=== PATIENT | male | born 1970 | race Caucasian/White ===

== ENCOUNTER 2020-12-04 11:16 | Outpatient (REF) | payer MEDICAID, SELFPAY | END 2020-12-04 11:17 | disposition home or self-care (01) | LOC: HO.LAB 11:16 | PROVIDERS: Visit Provider Internal Medicine | DX: Z20.822 Contact with and (suspected) exposure to COVID-19 (principal) | CPT/HCPCS: 36415; C9803; U0003; U0005 ==

== ENCOUNTER 2022-02-25 13:22 | Inpatient (IN) | payer MEDICAID, SELFPAY ==
--- NOTE | ~2022-02-25 | XR_ITS ---
EXAMINATION: XR CHEST CLINICAL INFORMATION: Cough. COMPARISON: 07/23/2019 chest radiographs. TECHNIQUE: 2 views of the chest were obtained. FINDINGS: A large mass with air-fluid levels is seen at the level the right middle lobe measuring 11.9 x 11.6 x 10.4 cm a less defined triangular opacity with air-fluid levels are seen posteriorly, likely within the superior segment of the right lower lobe measuring approximately 14.6 x 9.5 x 7.7 cm. The left lung is clear. There are no pleural effusions. The heart and mediastinal structures are unremarkable. XR/XR chest 2V IMPRESSION: Right lung masses/opacities with air-fluid levels are nonspecific, but suggest an infectious process. Malignancy cannot be completely excluded. These findings were not seen previously. Further evaluation with a contrast-enhanced chest CT scan is recommended.
--- NOTE | ~2022-02-25 | CT_ITS ---
EXAMINATION: CT ANGIOGRAM OF THE CHEST WITH AND WITHOUT CONTRAST (CT PULMONARY ANGIOGRAM FOR PE) CLINICAL INFORMATION: Reason for Exam dyspnea tachycardia elevated ddimer COMPARISON: Chest x-ray performed earlier same date and 07/23/2019 TECHNIQUE: Prior to contrast administration, noncontrast localization images were obtained. Subsequently, multidetector volumetric imaging was performed from the thoracic inlet to below the diaphragms following the administration of 65 mL Omnipaque 350 intravenous contrast. No contrast reaction reported Sagittal, coronal, and MIP oblique sagittal reformatted images were obtained on the CT workstation, uploaded to PACS, and reviewed. This CT examination was performed using dose optimization techniques as appropriate, variously including the following: *Automated exposure control *Adjustment of mA and/or kV according to patient size (this includes techniques or standardized protocols for targeted exams where dose is matched to indication/reason for exam; i.e. extremities or head) *Use of iterative reconstruction technique Total exam dose-length product 346 mGy-cm FINDINGS: QUALITY OF STUDY/CONTRAST BOLUS: Satisfactory. PULMONARY ARTERIES: No central or segmental pulmonary emboli. THORACIC AORTA: No aneurysm or dissection. LUNG: Large consolidated regions of lung parenchyma with cavitation present in the posterior segment of the right upper lobe, superior segment of the right lower lobe and middle lobe with air-fluid levels and debris suggestive of a necrotizing multilobar pneumonia. Patchy groundglass opacities present throughout remainder of the right lung. Left lung is spared. PLEURA: No pleural effusion or pneumothorax. MEDIASTINUM: Normal heart size. No pericardial effusion. No hilar or mediastinal lymphadenopathy. No evidence of septal bowing or right heart strain. CHEST WALL/AXILLA: No axillary or internal mammary lymphadenopathy. OSSEOUS STRUCTURES: No acute or suspicious osseous abnormality. UPPER ABDOMEN: Unremarkable. CT/CT angio chest PE protocol IMPRESSION: No pulmonary embolism. Necrotizing multilobar pneumonia. Recommend sputum and/or BAL fluid cultures to guide further management.. VTE: negative
--- NOTE | ~2022-02-25 | CT_ITS ---
EXAMINATION: CT CHEST WITHOUT CONTRAST CLINICAL INFORMATION: Follow multilobar pneumonia. COMPARISON: 02/25/2022 TECHNIQUE: Multidetector volumetric CT imaging of the chest was done. Axial MIP volume rendering provided. Sagittal and coronal reformatted images were obtained. This CT examination was performed using dose optimization techniques as appropriate, variously including the following: *Automated exposure control *Adjustment of mA and/or kV according to patient size (this includes techniques or standardized protocols for targeted exams where dose is matched to indication/reason for exam; i.e. extremities or head) *Use of iterative reconstruction technique DLP: 361 mGy-cm FINDINGS: LUNGS: The central airways are patent. Multifocal consolidation with cavitation throughout the right lung. When compared to prior, the large areas of consolidation are fairly similar. Within the right lower lobe there is increased tree-in-bud nodular opacity with bronchial wall thickening. No pneumothorax. The left lung is clear. MEDIASTINUM: Normal heart size. No pericardial effusion. Prominent mediastinal lymph nodes are again noted, likely reactive. PLEURA: There is now a small right-sided pleural effusion. This is new from prior CT. AXILLA: No lymphadenopathy. UPPER ABDOMEN: Contracted gallbladder. No acute abnormality in the visualized upper abdomen. OSSEOUS STRUCTURES: No acute or suspicious osseous abnormality. CT/CT chest wo con IMPRESSION: Multifocal consolidation throughout the right lung with areas of cavitation. These areas of consolidation are fairly similar to prior. There is increased tree in bud nodular opacity throughout the right lower lobe. Reactive mediastinal lymph node prominence. Fleischner guidelines were followed.
[2022-02-25 14:00] VITALS: BP 107/65; PULSE 136; RESP 24; TEMP 37.9; O2SAT 97; BMI 24.0
--- NOTE | 2022-02-25 14:03 | ED.SOB ---
HPI - SOB/Dyspnea General Chief Complaint: Upper Respiratory Symptoms Stated Complaint: diff breathing cough Time Seen by Provider: 02/25/22 13:24 Source: patient and old records reviewed Mode of arrival: ambulatory Limitations: no limitations History of Present Illness HPI Narrative: 51 yo male with hx of gastritis on methadone, here with R sided chest pain, dyspnea 50lb weight loss in 6 weeks - night sweats, chills, fevers. He has not been in [facility] in 6 years, no homeless shelters in 10 years. He does go to the methadone clinic. He has not used IVDA in 2 years - he did snort about 2 months ago. He has not seen a doctor for these symptoms. He does live with people who could have been in [facility] - he is not sure of his contacts. MD elicited complaint: shortness of breath, cough and pain with inspiration Pertinent past history: asthma Onset (ago): week(s) (6) Timing: progressively worsening Severity: severe Exacerbating factors: exertion, coughing and inspiration Relieving factors: rest Associated symptoms: chest pain, pain with inspiration, fever, cough, wheezing, sputum production (foamy no blood), palpitations, diaphoresis (night sweats) and other (50lb weight loss, chills) Treatment prior to arrival: none Related Data Home Medications Medication Instructions Recorded Confirmed methadone 10 mg/mL oral concentrate 30 mg PO DAILY 02/25/22 Allergies Allergy/AdvReac Type Severity Reaction Status Date / Time morphine [MORPHINE] Allergy Unknown NAUSEA & Unverified 07/11/20 15:10 VOMITING, ABD PAIN Morphine AdvReac Unknown Uncoded 04/20/19 00:00 Review of Systems Review of Systems: Constitutional : pos Fever, pos Chills, pos weight loss, pos fatigue ENT/Mouth : No sore throat, No Rhinorrhea, No Swallowing Difficulty Eyes: No Eye Pain, No Swelling, No Redness Cardiovascular : No Chest Pain, positive SOB, No Orthopnea, positive Edema Respiratory : pos Cough, pos Sputum, No Wheezing, positive dyspnea Gastrointestinal : No Nausea, No Vomiting, No Diarrhea, No abdominal Pain, No Hematochezia, No Melena Genitourinary : No Dysuria, No Urinary Frequency, No Hematuria Musculoskeletal : No joint pain, No Myalgias Skin : No Skin Lesions, No rash Neuro : pos Weakness, No Numbness, No Dizziness, No Headache Psych : No Anxiety/Panic, No Depression Heme/Lymph: No Bruising, No Lymphadenopathy Endocrine : No Polyuria, No Polydipsia All other systems reviewed and are negative PMFSH Past Medical History Attestation statement: The following information was validated with the patient. Medical History Gastritis Methadone dependence Smoker Social History Social History (Updated 02/25/22 @ 14:24 by Susannah Crenshaw DO) Alcohol intake: current Patient Tobacco Use Status: Current everyday Tobacco user Smoked in Last 30 Days: Yes Use of substances other than those prescribed or required for medical reasons: No Substance Use Type: Former Substance User and Opiates Last Used Substance: Weeks (ago) Advance Directives: No Advance Directives Information Provided: No Physical Exam Vital Signs: Vital Signs: Last Vital Signs Temp 99.1 F 02/25/22 15:26 Pulse 110 H 02/25/22 15:26 Resp 24 H 02/25/22 15:26 BP 96/70 02/25/22 15:26 Pulse Ox 97 02/25/22 15:26 BMI result Body Mass Index 24.0 Appearance: Alert. Oriented X3. Mild acute distress. Frail temporal wasting Eyes: Pupils equal, round and reactive to light. ENT: Pharynx normal. Neck: Normal inspection. Neck supple. CVS: tachycardic heart rate and rhythm. Pulses normal. Respiratory: No respiratory distress. Breath sounds coarse and diminished, R side decreased Abdomen: Soft and non-tender. Skin: Skin warm and dry. pale skin color. Normal skin turgor. Extremities: No lower extremity edema. No calf ttp Neuro: Oriented X 3. No motor deficit. No sensory deficit. Course Course Course Narrative: did discuss with Dr. Cristina add on levofloxacin for pasteurella, HIV testing, TB isolation, sputum culture signed out to Dr. Cazares only for CTA result and admit order Dr. Young aware of pending admit MDM - SOB/Dyspnea MDM Narrative Medical decision making narrative: 51 yo male with hx of methadone maintenance no overt risk factors for TB - no homelessnesss in 10 years, no [facility] in [facility], no no travel - he does have roommates and he is not sure of their social history. He goes to the methadone clinic has no injected in 2 years. He comes in with c/o 6 weeks of dyspnea, chills, fevers, nightsweats with cavitary lesion on CXR from triage. Put into resp isolation room. He will need labs, cultures, IVF, tylenol, empiric antbiotics, likely CT scan pending ddimer, admission. T spot ordered. Lab Data Result diagrams: 02/25/22 14:25 02/25/22 14:25 Labs: Lab Results 02/25/22 02/25/22 02/25/22 Range/Units 14:01 14:01 14:24 WBC (4.8-10.8) X10*3/uL RBC (4.60-5.80) X10*6/uL Hgb (14.0-18.0) g/dl Hct (42.0-52.0) % MCV (80.0-98.0) fL MCH (27.0-33.0) pg MCHC (31.0-36.0) g/dl RDW (11.0-16.0) % Plt Count (160-400) X10*3/uL MPV (9.4-12.4) fL Immature Gran % (Auto) (0.0-0.4) % Neut % (Auto) (45-73) % Lymph % (Auto) (20-40) % [place] % (Auto) (2-11) % Eos % (Auto) (0-4) % Baso % (Auto) (0-2) % Lymph # (Auto) (1.2-4.9) X10*3/uL [place] # (Auto) (0.1-1.2) X10*3/uL Eos # (Auto) (0.0-0.4) X10*3/uL Baso # (Auto) (0.0-0.2) X10*3/uL Abs Immat Gran (auto) (0.00-0.03) X10*3/uL Absolute Neuts (auto) (2.0-8.3) x10*3/uL Absolute Nucleated RBC (0.0-0.012) X10*3/uL Nucleated RBC % (auto) (0.0-0.2) /100WBC Smear Tech's Comments ESR (0-15) MM/HR PT 20.1 H (9.9-13.0) SEC INR 1.7 H (0.9-1.1) APTT 32.5 (24.1-38.0) SEC D-Dimer High Sensitivty 1166 NG/ML Sodium (135-145) mmol/L Potassium (3.3-5.1) mmol/L Chloride (96-108) mmol/L Carbon Dioxide (22-29) mmol/L Anion Gap (12-20) BUN (9-16) mg/dL Creatinine (0.5-1.4) mg/dL Estim Creat Clear Calc Estimated GFR Random Glucose (60-115) mg/dL Lactic Acid (0.5-2.0) mmol/L Calcium (8.4-10.2) mg/dL Magnesium (1.6-2.6) mg/dL Ferritin (20-250) ng/mL Total Bilirubin (0.0-1.0) mg/dL Direct Bilirubin (0.0-0.5) mg/dL AST (5-37) U/L ALT (0-40) U/L Alkaline Phosphatase (39-117) U/L Lactate Dehydrogenase (118-273) U/L Total Creatine Kinase (38-174) U/L Troponin I High Sens (<3.5-35.0) ng/L C-Reactive Protein (< or = 0.50) mg/dL Total Protein (6.5-8.0) g/dL Albumin (3.5-5.0) g/dL Procalcitonin ng/mL COVID-19 (EDUAR) Negative (Negative) COVID-19 Clin Com See Note Influenza Type A (LATIA) Negative (Negative) Influenza Type B (LATIA) Negative (Negative) Influenza A & B Note See Note 02/25/22 02/25/22 02/25/22 Range/Units 14:24 14:24 14:24 WBC (4.8-10.8) X10*3/uL RBC (4.60-5.80) X10*6/uL Hgb (14.0-18.0) g/dl Hct (42.0-52.0) % MCV (80.0-98.0) fL MCH (27.0-33.0) pg MCHC (31.0-36.0) g/dl RDW (11.0-16.0) % Plt Count (160-400) X10*3/uL MPV (9.4-12.4) fL Immature Gran % (Auto) (0.0-0.4) % Neut % (Auto) (45-73) % Lymph % (Auto) (20-40) % [place] % (Auto) (2-11) % Eos % (Auto) (0-4) % Baso % (Auto) (0-2) % Lymph # (Auto) (1.2-4.9) X10*3/uL [place] # (Auto) (0.1-1.2) X10*3/uL Eos # (Auto) (0.0-0.4) X10*3/uL Baso # (Auto) (0.0-0.2) X10*3/uL Abs Immat Gran (auto) (0.00-0.03) X10*3/uL Absolute Neuts (auto) (2.0-8.3) x10*3/uL Absolute Nucleated RBC (0.0-0.012) X10*3/uL Nucleated RBC % (auto) (0.0-0.2) /100WBC Smear Tech's Comments ESR (0-15) MM/HR PT (9.9-13.0) SEC INR (0.9-1.1) APTT (24.1-38.0) SEC D-Dimer High Sensitivty NG/ML Sodium (135-145) mmol/L Potassium (3.3-5.1) mmol/L Chloride (96-108) mmol/L Carbon Dioxide (22-29) mmol/L Anion Gap (12-20) BUN (9-16) mg/dL Creatinine (0.5-1.4) mg/dL Estim Creat Clear Calc Estimated GFR Random Glucose (60-115) mg/dL Lactic Acid 2.4 H* (0.5-2.0) mmol/L Calcium (8.4-10.2) mg/dL Magnesium (1.6-2.6) mg/dL Ferritin (20-250) ng/mL Total Bilirubin (0.0-1.0) mg/dL Direct Bilirubin (0.0-0.5) mg/dL AST (5-37) U/L ALT (0-40) U/L Alkaline Phosphatase (39-117) U/L Lactate Dehydrogenase (118-273) U/L Total Creatine Kinase (38-174) U/L Troponin I High Sens < 3.5 (<3.5-35.0) ng/L C-Reactive Protein (< or = 0.50) mg/dL Total Protein (6.5-8.0) g/dL Albumin (3.5-5.0) g/dL Procalcitonin 0.86 ng/mL COVID-19 (EDUAR) (Negative) COVID-19 Clin Com Influenza Type A (LATIA) (Negative) Influenza Type B (LATIA) (Negative) Influenza A & B Note 02/25/22 02/25/22 02/25/22 Range/Units 14:25 14:25 14:25 WBC 31.3 H* (4.8-10.8) X10*3/uL RBC 3.72 L (4.60-5.80) X10*6/uL Hgb 10.8 L (14.0-18.0) g/dl Hct 32.9 L (42.0-52.0) % MCV 88.4 (80.0-98.0) fL MCH 29.0 (27.0-33.0) pg MCHC 32.8 (31.0-36.0) g/dl RDW 14.7 (11.0-16.0) % Plt Count 772 H (160-400) X10*3/uL MPV 9.2 L (9.4-12.4) fL Immature Gran % (Auto) 1.6 H (0.0-0.4) % Neut % (Auto) 87.0 H (45-73) % Lymph % (Auto) 5.2 L (20-40) % [place] % (Auto) 5.9 (2-11) % Eos % (Auto) 0.0 (0-4) % Baso % (Auto) 0.3 (0-2) % Lymph # (Auto) 1.6 (1.2-4.9) X10*3/uL [place] # (Auto) 1.9 H (0.1-1.2) X10*3/uL Eos # (Auto) 0.0 (0.0-0.4) X10*3/uL Baso # (Auto) 0.1 (0.0-0.2) X10*3/uL Abs Immat Gran (auto) 0.49 H (0.00-0.03) X10*3/uL Absolute Neuts (auto) 27.2 H (2.0-8.3) x10*3/uL Absolute Nucleated RBC 0.000 (0.0-0.012) X10*3/uL Nucleated RBC % (auto) 0.0 (0.0-0.2) /100WBC Smear Tech's Comments VERIFIED ESR 92 H (0-15) MM/HR PT (9.9-13.0) SEC INR (0.9-1.1) APTT (24.1-38.0) SEC D-Dimer High Sensitivty NG/ML Sodium 129 L (135-145) mmol/L Potassium 4.7 (3.3-5.1) mmol/L Chloride 88 L (96-108) mmol/L Carbon Dioxide 27 (22-29) mmol/L Anion Gap 19 (12-20) BUN 10 (9-16) mg/dL Creatinine 0.66 (0.5-1.4) mg/dL Estim Creat Clear Calc 148.6 Estimated GFR > 60 Random Glucose 108 (60-115) mg/dL Lactic Acid (0.5-2.0) mmol/L Calcium 8.7 (8.4-10.2) mg/dL Magnesium 1.6 (1.6-2.6) mg/dL Ferritin 1036 H (20-250) ng/mL Total Bilirubin 0.6 (0.0-1.0) mg/dL Direct Bilirubin 0.3 (0.0-0.5) mg/dL AST 61 H (5-37) U/L ALT 31 (0-40) U/L Alkaline Phosphatase 125 H (39-117) U/L Lactate Dehydrogenase 172 (118-273) U/L Total Creatine Kinase 9 L (38-174) U/L Troponin I High Sens (<3.5-35.0) ng/L C-Reactive Protein 28.64 H (< or = 0.50) mg/dL Total Protein 7.4 (6.5-8.0) g/dL Albumin 2.4 L (3.5-5.0) g/dL Procalcitonin ng/mL COVID-19 (EDUAR) (Negative) COVID-19 Clin Com Influenza Type A (LATIA) (Negative) Influenza Type B (LATIA) (Negative) Influenza A & B Note ECG Data Attestation: I personally reviewed and interpreted this ECG as follows: ECG interpretation date: 02/25/22 ECG interpretation time: 14:38 Interpretation: Rate: 132 Rhythm: sinus tachycardia [place]: normal Normal P waves. Normal KAYLA. Normal QRS complex. ST T wave : normal no MOISES qTC: normal prior studies: no acute ischemia The study has been interpreted contemporaneously by me. Critical Care Time Critical Care Time Critical Care Time: Yes Total Critical Care Time: 45 Attestation: review of old records, medical consult, 2L of IVF I attest to this time spent taking care of the patient Discharge Plan Discharge Clinical Impression: Acute dyspnea, Acidosis, lactic, CRP elevated, Cavitating mass of lung Leukocytosis Qualifiers: Leukocytosis type: unspecified Qualified Code(s): D72.829 - Elevated white blood cell count, unspecified Fever Qualifiers: Fever type: unspecified Qualified Code(s): R50.9 - Fever, unspecified Patient Disposition: Admitted As Inpatient
[2022-02-25 14:04] VITALS: PULSE 132; O2SAT 97
--- NOTE | 2022-02-25 14:04 | ECG_ITS ---
Test Reason : dyspnea Blood Pressure : / mmHG Vent. Rate : 132 BPM Atrial Rate : 132 BPM P-R Int : 140 ms QRS Dur : 074 ms QT Int : 282 ms P-R-T Axes : 067 055 059 degrees QTc Int : 417 ms Poor data quality, interpretation may be adversely affected Sinus tachycardia Otherwise normal ECG When compared with ECG of 23-JUL-2019 19:37, No significant change was found Referred By: Susannah Crenshaw Electronically Signed By:Carrillo Sabillon
[2022-02-25] MEDS: Piperacillin Sodium/Tazobactam 3.375 GM in 0.9 % Sodium Chloride 50 ML IV (14:34)
[2022-02-25] MEDS: 0.9 % Sodium Chloride 1,000 ML 999 ML IV ×2 (14:36→16:25)
[2022-02-25] MEDS: Acetaminophen 325 MG TABLET 650 MG PO (14:36)
[2022-02-25 14:37] LABS: COVID-19 Test Negative (Negative)
[2022-02-25 14:38] LABS: IDNOW Serial# 16C4AD1C; Influenza A Negative (Negative); Influenza B2 Negative (Negative)
[2022-02-25 14:39] LABS: Basophils Absolute Auto 0.1 X10*3/uL (0.0-0.2); Basophils Percent Auto 0.3 % (0-2); Hematocrit 32.9 % (42.0-52.0); Hemoglobin 10.8 g/dl (14.0-18.0); Imm Gran Abs Auto 0.49 X10*3/uL (0.00-0.03); Imm Gran Pct Auto 1.6 % (0.0-0.4); Lymphocytes Absolute Auto 1.6 X10*3/uL (1.2-4.9); Lymphocytes Percent Auto 5.2 % (20-40); MANUAL DIFF FLAG SCAN; Mean Corpuscular HGB Conc 32.8 g/dl (31.0-36.0); Mean Corpuscular Volume 88.4 fL (80.0-98.0); Mean Platelet Volume 9.2 fL (9.4-12.4); Monocytes Absolute Auto 1.9 X10*3/uL (0.1-1.2); Monocytes Percent Auto 5.9 % (2-11); Neutrophils Absolute Auto 27.2 x10*3/uL (2.0-8.3); Platelet Count 772 X10*3/uL (160-400); Red Blood Count 3.72 X10*6/uL (4.60-5.80); Red Cell Distribution Width 14.7 % (11.0-16.0); SCAN SMEAR FLAG 1
[2022-02-25 14:42] LABS: White Blood Count 31.3 X10*3/uL (4.8-10.8)
[2022-02-25 14:53] LABS: INTERNATIONAL NORM RATIO 1.7 (0.9-1.1); Prothrombin Time 20.1 SEC (9.9-13.0)
--- NOTE | 2022-02-25 14:54 | PHA.MEDREC ---
Pharmacy Consult ? Medication Reconciliation Pharmacy has completed the medication reconciliation. Methadone dose needs to be confirmed with clinic
[2022-02-25 14:55] LABS: D Dimer High Sensitivity 1166 NG/ML; Partial Thromboplastin Time 32.5 SEC (24.1-38.0)
[2022-02-25 14:57] LABS: SLIDE REVIEW VERIFIED
[2022-02-25 14:59] LABS: Troponin-I High Sensitivity < 3.5 ng/L (<3.5-35.0)
[2022-02-25 14:59] LABS: Alanine Aminotransferase 31 U/L (0-40); Albumin Level 2.4 g/dL (3.5-5.0); Alkaline Phosphatase 125 U/L (39-117); Anion Gap 19 (12-20); Aspartate Amino Transferase 61 U/L (5-37); Bilirubin Direct 0.3 mg/dL (0.0-0.5); Bilirubin Total 0.6 mg/dL (0.0-1.0); Blood Urea Nitrogen 10 mg/dL (9-16); C Reactive Protein 28.64 mg/dL (< or = 0.50); Calcium 8.7 mg/dL (8.4-10.2); Carbon Dioxide 27 mmol/L (22-29); Chloride 88 mmol/L (96-108); Creatinine Clr Calc Pharmacy 148.6; Estimated Glomerular Filt Rate > 60; Glucose Random 108 mg/dL (60-115); Lactate Dehydrogenase 172 U/L (118-273); Magnesium 1.6 mg/dL (1.6-2.6); Potassium 4.7 mmol/L (3.3-5.1); Sodium 129 mmol/L (135-145); Total Protein 7.4 g/dL (6.5-8.0)
[2022-02-25 15:08] LABS: Lactic Acid 2.4 mmol/L (0.5-2.0)
[2022-02-25 15:18] LABS: Procalcitonin 0.86 ng/mL
[2022-02-25 15:19] LABS: Ferritin 1036 ng/mL (20-250)
[2022-02-25] MEDS: vancomycin HCL 1,000 MG in 0.9 % Sodium Chloride 250 ML 270 MG IV (15:23)
[2022-02-25 15:26] VITALS: BP 96/70; PULSE 110; RESP 24; TEMP 37.3; O2SAT 97
[2022-02-25 15:30] LABS: Erythrocyte Sedimentation Rate 92 MM/HR (0-15)
[2022-02-25] MEDS: iohexoL 350 MG/ML 100 ML INFUS..BTL 65 ML IV (16:22)
[2022-02-25] MEDS: levoFLOXacin/D5W 500 MG/100 ML PIGGYBACK 100 MG IV (16:25)
[2022-02-25 16:31] LABS: Reflex Lactate? Lactic Acid Added
[2022-02-25] MEDS: 0.9 % Sodium Chloride 1,000 ML 999 ML IVCONT (17:28)
[2022-02-25 17:36] LABS: ~Lactic Acid-LAB USE ONLY 1.6 mmol/L (0.5-2.0)
[2022-02-25 17:44] LABS: Amphetamine Screen Urine Not Detected (Not Detect); Barbiturates, Urine Not Detected (Not Detect); Benzodiazepines Screen Urine Not Detected (Not Detect); Cannabinoid Screen Urine Not Detected (Not Detect); Cocaine Screen Urine Not Detected (Not Detect); Fentanyl, urine Not Detected (Not Detect); Opiate Screen Urine Not Detected (Not Detect); Phencyclidine Screen Urine Not Detected (Not Detect)
--- NOTE | 2022-02-25 18:00 | P.HPHOSP_ITS ---
History of Present Illness Date of Service: 02/25/22 Chief Complaint: Sepsis/cavitary pneumonia. 51-year-old male history of gastritis, also drug use in the past on methadone, also he recently quit alcohol 4-6 week ago, was in the detention 6 years ago, denies living in homeless shelters. Patient came to the hospital because of 6 week history of shortness of breath, cough pain with breathing inspiration, fever night sweats, loss of appetite and weight loss 30-40 lb as per patient. Also complaining of generalized weakness. Has nausea He says he is generally weak from 6 months and due to shortness of breath and ab ove symptoms has limited functionally active from 6 month. Patient says that he quit IV did drug use 2 years ago,he did snort about 2 months ago. Patient having seen a doctor at least 2-3 years. lives with friends:Miss Pickens: [phone]. Denies vomiting or abdominal pain or blurry vision or weakness or numbness Has foamy sputum every day in the morning. Denies any recent travel or sick contacts. Lab imaging reviewed: WBC count 31.3, tachypneic Mild hyponatremia 129 Elevated ferritin, C-reactive protein, as ESR Lactic acid 2.4, mild elevated LFT chronically. PTand INR also elevated ddimer elevated CTA shows no PE, possible necrotizing multilobar pneumonia. EKG shows sinus tachycardia Review of Systems Review of Systems: As above. Yes all other systems are reviewed and are negative [facility] Medical History Gastritis Methadone dependence Smoker Pertinent family history: Patient a does not want to tack anything about family history. He says he has 1 uncle but he does not want me to speak to him. Social History Alcohol intake: current Patient Tobacco Use Status: Current everyday Tobacco user Smoked in Last 30 Days: Yes Use of substances other than those prescribed or required for medical reasons: No Substance Use Type: Former Substance User and Opiates Last Used Substance: Weeks (ago) Advance Directives: No Advance Directives Information Provided: No Meds Allergies Allergy/AdvReac Type Severity Reaction Status Date / Time morphine [MORPHINE] Allergy Unknown NAUSEA & Unverified 07/11/20 15:10 VOMITING, ABD PAIN Morphine AdvReac Unknown Uncoded 04/20/19 00:00 Active Medications: Current Medications Folic Acid (Folic Acid 1 Mg Tablet) 1 mg PO DAILY [facility] Sodium Chloride (Ns) 1,000 mls @ 999 mls/hr IVCONT .Q1H1M ONE Stop: 02/25/22 18:05 Last Admin: 02/25/22 17:28 Dose: 999 mls/hr Documented by: Lactated Ringer's (Lr) 1,000 mls @ 100 mls/hr IVCONT .Q10H NABIL Piperacillin Sod/Tazobactam (Sod 4.5 gm/ Sodium Chloride) 100 mls @ 200 mls/hr IV Q6H [facility] Levofloxacin (Levaquin) 500 mg in 100 mls @ 100 mls/hr IV Q24H [facility] Methadone HCl (Methadone Hcl 20 Mg/2 Ml Oral.Conc) 30 mg PO DAILY [facility] Pharmacy Consult (Consult Rx Perform Med Rec) 1 each MISCELLANE ONCE PRN PRN Reason: Consult order Pharmacy Consult (Consult Rx Vancomycin Dosing) 1 each MISCELLANE DAILY PRN PRN Reason: Consult order Sodium Chloride (0.9 % Sodium Chloride Flush 3 Ml Syringe) 3 ml IVFLUSH QSHIFT [facility] Thiamine HCl (Thiamine Hcl 100 Mg Tablet) 100 mg PO DAILY [facility] Home Medications Medication Instructions Recorded Confirmed Last Taken Type methadone 10 mg/mL oral concentrate 30 mg PO DAILY 02/25/22 02/25/22 History Physical Exam Vital Signs and Narrative: Vital Signs: Last Vital Signs Temp 99.1 F 02/25/22 15:26 Pulse 110 H 02/25/22 15:26 Resp 24 H 02/25/22 15:26 BP 96/70 02/25/22 15:26 Pulse Ox 97 02/25/22 15:26 BMI result Body Mass Index 24.0 Appearance: Alert.? Oriented X3.?sob? Eyes: Pupils equal, round and reactive to light.? Sclera nonicteric.? ENT: Pharynx normal.? Moist mucous membranes-somewhat dry. cvs: rrr, [id number] res: cdiminshed breath sounds on right lung area lower more >upper lung ,rhonchii right side also,left lung is fair air entry. abd: no rebound or guarding ,nt, bs present. ext pulses present , no cyanosis . neuro: axo3 , nonfocal. Results Labs CBC and Chem 7: 02/25/22 14:25 02/25/22 14:25 Labs: Laboratory Results - last 24 hr 02/25/22 02/25/22 02/25/22 14:01 14:01 14:24 MCV MCH MCHC RDW Plt Count MPV Immature Gran % (Auto) Neut % (Auto) Lymph % (Auto) [place] % (Auto) Eos % (Auto) Baso % (Auto) Lymph # (Auto) [place] # (Auto) Eos # (Auto) Baso # (Auto) Abs Immat Gran (auto) Absolute Neuts (auto) Absolute Nucleated RBC Nucleated RBC % (auto) Smear Tech's Comments ESR PT 20.1 H INR 1.7 H APTT 32.5 D-Dimer High Sensitivty 1166 Anion Gap Estim Creat Clear Calc Estimated GFR Random Glucose Lactic Acid Lactic Acid F/U @ 2Hr Calcium Magnesium Ferritin Total Bilirubin Direct Bilirubin AST ALT Alkaline Phosphatase Lactate Dehydrogenase Total Creatine Kinase Troponin I High Sens C-Reactive Protein Total Protein Albumin Procalcitonin Urine Opiates Screen Urine Fentanyl Screen Ur Barbiturates Screen Ur Phencyclidine Scrn Ur Amphetamines Screen U Benzodiazepines Scrn Urine Cocaine Screen U Marijuana (THC) Screen COVID-19 (EDUAR) Negative COVID-19 Clin Com See Note Influenza Type A (LATIA) Negative Influenza Type B (LATIA) Negative Influenza A & B Note See Note 02/25/22 02/25/22 02/25/22 14:24 14:24 14:24 MCV MCH MCHC RDW Plt Count MPV Immature Gran % (Auto) Neut % (Auto) Lymph % (Auto) [place] % (Auto) Eos % (Auto) Baso % (Auto) Lymph # (Auto) [place] # (Auto) Eos # (Auto) Baso # (Auto) Abs Immat Gran (auto) Absolute Neuts (auto) Absolute Nucleated RBC Nucleated RBC % (auto) Smear Tech's Comments ESR PT INR APTT D-Dimer High Sensitivty Anion Gap Estim Creat Clear Calc Estimated GFR Random Glucose Lactic Acid 2.4 H* Lactic Acid F/U @ 2Hr Calcium Magnesium Ferritin Total Bilirubin Direct Bilirubin AST ALT Alkaline Phosphatase Lactate Dehydrogenase Total Creatine Kinase Troponin I High Sens < 3.5 C-Reactive Protein Total Protein Albumin Procalcitonin 0.86 Urine Opiates Screen Urine Fentanyl Screen Ur Barbiturates Screen Ur Phencyclidine Scrn Ur Amphetamines Screen U Benzodiazepines Scrn Urine Cocaine Screen U Marijuana (THC) Screen COVID-19 (EDUAR) COVID-19 Clin Com Influenza Type A (LATIA) Influenza Type B (LATIA) Influenza A & B Note 02/25/22 02/25/22 02/25/22 14:25 14:25 14:25 MCV 88.4 MCH 29.0 MCHC 32.8 RDW 14.7 Plt Count 772 H MPV 9.2 L Immature Gran % (Auto) 1.6 H Neut % (Auto) 87.0 H Lymph % (Auto) 5.2 L [place] % (Auto) 5.9 Eos % (Auto) 0.0 Baso % (Auto) 0.3 Lymph # (Auto) 1.6 [place] # (Auto) 1.9 H Eos # (Auto) 0.0 Baso # (Auto) 0.1 Abs Immat Gran (auto) 0.49 H Absolute Neuts (auto) 27.2 H Absolute Nucleated RBC 0.000 Nucleated RBC % (auto) 0.0 Smear Tech's Comments VERIFIED ESR 92 H PT INR APTT D-Dimer High Sensitivty Anion Gap 19 Estim Creat Clear Calc 148.6 Estimated GFR > 60 Random Glucose 108 Lactic Acid Lactic Acid F/U @ 2Hr Calcium 8.7 Magnesium 1.6 Ferritin 1036 H Total Bilirubin 0.6 Direct Bilirubin 0.3 AST 61 H ALT 31 Alkaline Phosphatase 125 H Lactate Dehydrogenase 172 Total Creatine Kinase 9 L Troponin I High Sens C-Reactive Protein 28.64 H Total Protein 7.4 Albumin 2.4 L Procalcitonin Urine Opiates Screen Urine Fentanyl Screen Ur Barbiturates Screen Ur Phencyclidine Scrn Ur Amphetamines Screen U Benzodiazepines Scrn Urine Cocaine Screen U Marijuana (THC) Screen COVID-19 (EDUAR) COVID-19 Clin Com Influenza Type A (LATIA) Influenza Type B (LATIA) Influenza A & B Note 02/25/22 02/25/22 17:00 17:00 MCV MCH MCHC RDW Plt Count MPV Immature Gran % (Auto) Neut % (Auto) Lymph % (Auto) [place] % (Auto) Eos % (Auto) Baso % (Auto) Lymph # (Auto) [place] # (Auto) Eos # (Auto) Baso # (Auto) Abs Immat Gran (auto) Absolute Neuts (auto) Absolute Nucleated RBC Nucleated RBC % (auto) Smear Tech's Comments ESR PT INR APTT D-Dimer High Sensitivty Anion Gap Estim Creat Clear Calc Estimated GFR Random Glucose Lactic Acid Lactic Acid F/U @ 2Hr 1.6 Calcium Magnesium Ferritin Total Bilirubin Direct Bilirubin AST ALT Alkaline Phosphatase Lactate Dehydrogenase Total Creatine Kinase Troponin I High Sens C-Reactive Protein Total Protein Albumin Procalcitonin Urine Opiates Screen Not Detected Urine Fentanyl Screen Not Detected Ur Barbiturates Screen Not Detected Ur Phencyclidine Scrn Not Detected Ur Amphetamines Screen Not Detected U Benzodiazepines Scrn Not Detected Urine Cocaine Screen Not Detected U Marijuana (THC) Screen Not Detected COVID-19 (EDUAR) COVID-19 Clin Com Influenza Type A (LATIA) Influenza Type B (LATIA) Influenza A & B Note Imaging Radiologist's Impressions: Impressions Chest X-Ray 02/25/22 13:38 IMPRESSION: Right lung masses/opacities with air-fluid levels are nonspecific, but suggest an infectious process. Malignancy cannot be completely excluded. These findings were not seen previously. Further evaluation with a contrast-enhanced chest CT scan is recommended. Chest CTA 02/25/22 16:23 IMPRESSION: No pulmonary embolism. Necrotizing multilobar pneumonia. Recommend sputum and/or BAL fluid cultures to guide further management.. VTE: negative Assessment and Plan (1) Acute dyspnea: Status: Acute (2) Acidosis, lactic: Status: Acute (3) Leukocytosis: Qualifiers: Leukocytosis type: unspecified Qualified Code(s): D72.829 - Elevated white blood cell count, unspecified Status: Acute (4) Fever: Qualifiers: Fever type: unspecified Qualified Code(s): R50.9 - Fever, unspecified Status: Acute (5) Necrotizing bronchopneumonia: Status: Acute (6) Sepsis: Status: Acute Plan 51-year-old male history of gastritis, also drug use in the past on methadone came with sepsis /pneumonia. 1. Sepsis secondary to pneumonia(necrotizing pneumonia)-symptoms are from 6 weeks. Has tachycardia and tachypnea elevated ferritn ,crp,esr , procalcitonin. cta -shows necrotizing pneumonia, no pulm embolism Patient was given Levaquin, vancomycin and Zosyn in the ED,vanco trough Will continue above antibiotics, also blood culture the sport test hepatitis C, HIV also sent by ED, T spot, AFB and sputum culture ordered. Sepsis exam completed, lactic acid improved, completed sepsis fluids. Id and Pulmonary evaluation added. Patient on airborne isolation 2. Opioid use: Patient does not give clear-cut history, will add urine drug screen. Continue methadone. psych for methadone 3.hx of gastritis : added ppi 4.elevated pt/inr -as per the patient is not eating well from 6 weeks-so possi ble nutritional D-dimer elevated, will add fibrin origin to complete the workup for coagulopathy ldh normal 5. Mild elevation of LFTs chronic -possible related to etoh use. continue to moniter lft's 6. hyponatremia:possible low po intake ,seems dry added gentle hydration 7.mech devices until coagulapthy workup completes. Above management discussed with patient in detail length he understand and in agreement with above plan including use of antibiotics fluids PPIs, time spent 70 minute patient is full code. Quality Stroke Does the patient have a stroke diagnosis?: No VTE Prior VTE?: No VTE Risk Level:: Medical - moderate - high VTE Device Contraindication: N/A - Device Ordered VTE Drug Contraindication: N/A - Med Ordered
[2022-02-25 18:31] LABS: Fibrinogen > 700 MG/DL (259-690)
[2022-02-25] MEDS: Lactated Ringers 1,000 ML 100 ML IVCONT (18:45)
[2022-02-25] MEDS: Multivitamin TABLET 1 TAB PO (19:49)
[2022-02-25] MEDS: Piperacillin Sodium/Tazobactam 4.5 GM in 0.9 % Sodium Chloride 100 ML IV (19:50)
[2022-02-25] MEDS: Albuterol/Iprat 2.5/0.5MG 3 ML AMPUL.NEB INHALE (20:09)
[2022-02-25 20:16] VITALS: PULSE 116; RESP 16; O2SAT 98
[2022-02-26] MEDS: Piperacillin Sodium/Tazobactam 4.5 GM in 0.9 % Sodium Chloride 100 ML IV ×4 (02:30→20:17)
--- NOTE | 2022-02-26 04:56 | PC.NURSE ---
Per hospitalist, pt is to remain on airborne precautions. Nursing water supervisor aware.
[2022-02-26] MEDS: Omeprazole 20 MG CAPSULE.DR PO (05:56)
[2022-02-26] MEDS: Lactated Ringers 1,000 ML 100 ML IVCONT ×3 (05:57→18:19)
[2022-02-26] MEDS: vancomycin HCL 1,500 MG in 0.9 % Sodium Chloride 500 ML 333.33 MG IV ×2 (05:58→18:53)
[2022-02-26 06:00] VITALS: BP 106/66; PULSE 111; RESP 25; TEMP 37.3; O2SAT 91
[2022-02-26 07:32] LABS: Basophils Percent Auto 0.2 % (0-2); Hematocrit 25.7 % (42.0-52.0); Hemoglobin 8.5 g/dl (14.0-18.0); Imm Gran Abs Auto 0.31 X10*3/uL (0.00-0.03); Imm Gran Pct Auto 1.3 % (0.0-0.4); Lymphocytes Absolute Auto 1.9 X10*3/uL (1.2-4.9); Lymphocytes Percent Auto 7.7 % (20-40); MANUAL DIFF FLAG SCAN; Mean Corpuscular HGB Conc 33.1 g/dl (31.0-36.0); Mean Corpuscular Hemoglobin 29.2 pg (27.0-33.0); Mean Corpuscular Volume 88.3 fL (80.0-98.0); Mean Platelet Volume 9.4 fL (9.4-12.4); Monocytes Absolute Auto 1.4 X10*3/uL (0.1-1.2); Monocytes Percent Auto 5.8 % (2-11); Neutrophils Absolute Auto 20.5 x10*3/uL (2.0-8.3); Platelet Count 623 X10*3/uL (160-400); Red Blood Count 2.91 X10*6/uL (4.60-5.80); Red Cell Distribution Width 14.9 % (11.0-16.0); SCAN SMEAR FLAG 1; White Blood Count 24.1 X10*3/uL (4.8-10.8)
--- NOTE | 2022-02-26 07:35 | PC.NURSE ---
Patient's methadone dose verified by Methadone clinic. Methadone verification form faxed to pharmacy stat. Methadone clinic is [address] [address] and phone number is [phone].
[2022-02-26 07:47] LABS: INTERNATIONAL NORM RATIO 1.8 (0.9-1.1); Prothrombin Time 21.1 SEC (9.9-13.0)
[2022-02-26 07:53] LABS: Anion Gap 13 (12-20); Blood Urea Nitrogen 6 mg/dL (9-16); Calcium 7.8 mg/dL (8.4-10.2); Carbon Dioxide 26 mmol/L (22-29); Chloride 95 mmol/L (96-108); Estimated Glomerular Filt Rate > 60; Glucose Random 86 mg/dL (60-115); Potassium 4.1 mmol/L (3.3-5.1); Sodium 130 mmol/L (135-145)
[2022-02-26 08:05] LABS: SLIDE REVIEW VERIFIED
[2022-02-26] MEDS: Thiamine HCL 100 MG TABLET PO (08:11)
[2022-02-26] MEDS: methADONE HCl 20 MG/2 ML ORAL.CONC 30 MG PO (08:11)
[2022-02-26] MEDS: Folic Acid 1 MG TABLET PO (08:11)
[2022-02-26] MEDS: Albuterol/Iprat 2.5/0.5MG 3 ML AMPUL.NEB INHALE ×3 (08:15→19:21)
[2022-02-26 08:19] VITALS: PULSE 129; RESP 16; O2SAT 98
--- NOTE | 2022-02-26 08:31 | P.PNIM_ITS ---
Subjective Subjective Date of Service: 02/26/22 Interval History: sepsis/pneumonia Review of Systems Shortness of breath slightly better than yesterday, has cough no fever Hepatitis slightly better. Physical Exam Vital Signs: Vital Signs: Last Vital Signs Temp 99.1 F 02/26/22 06:00 Pulse 129 H 02/26/22 08:19 Resp 16 02/26/22 08:19 BP 106/66 02/26/22 06:00 Pulse Ox 91 L 02/26/22 06:00 BMI result Body Mass Index 24.0 Appearance: Alert.? Oriented X3.?sob? Eyes: Pupils equal, round and reactive to light.? Sclera nonicteric.? ENT: Pharynx normal.? Moist mucous membranes-somewhat dry. cvs: rrr, [id number] res: cdiminshed breath sounds on right lung area lower more >upper lung ,rhonchii right side also,left lung is fair air entry. abd: no rebound or guarding ,nt, bs present. ext pulses present , no cyanosis . neuro: axo3 , nonfocal. Objective Data Active Medications Albuterol/Ipratropium (Albuterol/Iprat 2.5/0.5mg 3 Ml Ampul.Neb) 3 ml INHALE RQ4H WHILE AWAKE [facility] Last Admin: 02/26/22 08:15 Dose: 3 ml Documented by: LINDA Folic Acid (Folic Acid 1 Mg Tablet) 1 mg PO DAILY [facility] Last Admin: 02/25/22 18:36 Dose: Not Given Documented by: ZAINAB Non-Admin Reason: Taken at Home Lactated Ringer's (Lr) 1,000 mls @ 100 mls/hr IVCONT .Q10H [facility] Last Admin: 02/26/22 05:57 Dose: 100 mls/hr Documented by: COLLETTE Piperacillin Sod/Tazobactam (Sod 4.5 gm/ Sodium Chloride) 100 mls @ 200 mls/hr IV Q6H [facility] Last Infusion: 02/26/22 03:00 Dose: 0 mls/hr Documented by: COLLETTE Levofloxacin (Levaquin) 500 mg in 100 mls @ 100 mls/hr IV Q24H [facility] Vancomycin HCl 1,500 mg/ (Sodium Chloride) 500 mls @ 333.333 mls/hr IV Q12H [facility] Last Admin: 02/26/22 05:58 Dose: 333.33 mls/hr Documented by: COLLETTE Methadone HCl (Methadone Hcl 20 Mg/2 Ml Oral.Conc) 30 mg PO DAILY [facility] Multivitamins/Vitamin C (Multivitamin Tablet) 1 tab PO BEDTIME [facility] Last Admin: 02/25/22 19:49 Dose: 1 tab Documented by: COLLETTE Omeprazole (Omeprazole 20 Mg Capsule.Dr) 20 mg PO DAILY@0630 [facility] Last Admin: 02/26/22 05:56 Dose: 20 mg Documented by: COLLETTE Pharmacy Consult (Consult Rx Perform Med Rec) 1 each MISCELLANE ONCE PRN PRN Reason: Consult order Pharmacy Consult (Consult Rx Vancomycin Dosing) 1 each MISCELLANE DAILY PRN PRN Reason: Consult order Phytonadione (Phytonadione (Vit K1) Oral 10 Mg/Ml Ampul) 10 mg PO ONCE ONE Stop: 02/26/22 08:29 Sodium Chloride (0.9 % Sodium Chloride Flush 3 Ml Syringe) 3 ml IVFLUSH QSHIFT [facility] Last Admin: 02/26/22 07:45 Dose: Not Given Documented by: COLLETTE Non-Admin Reason: IV Running Thiamine HCl (Thiamine Hcl 100 Mg Tablet) 100 mg PO DAILY [facility] Last Admin: 02/25/22 18:37 Dose: Not Given Documented by: ZAINAB Non-Admin Reason: Taken at Home Labs CBC & Chem 7: 02/26/22 12:46 02/26/22 06:59 Labs: Laboratory Results - last 24 hr 02/25/22 02/25/22 02/25/22 14:01 14:01 14:24 MCV MCH MCHC RDW Plt Count MPV Immature Gran % (Auto) Neut % (Auto) Lymph % (Auto) [place] % (Auto) Eos % (Auto) Baso % (Auto) Lymph # (Auto) [place] # (Auto) Eos # (Auto) Baso # (Auto) Abs Immat Gran (auto) Absolute Neuts (auto) Absolute Nucleated RBC Nucleated RBC % (auto) Smear Tech's Comments ESR PT 20.1 H INR 1.7 H APTT 32.5 Fibrinogen > 700 H D-Dimer High Sensitivty 1166 Anion Gap Estim Creat Clear Calc Estimated GFR Random Glucose Lactic Acid Lactic Acid F/U @ 2Hr Calcium Magnesium Ferritin Total Bilirubin Direct Bilirubin AST ALT Alkaline Phosphatase Lactate Dehydrogenase Total Creatine Kinase Troponin I High Sens C-Reactive Protein Total Protein Albumin Procalcitonin Urine Opiates Screen Urine Fentanyl Screen Ur Barbiturates Screen Ur Phencyclidine Scrn Ur Amphetamines Screen U Benzodiazepines Scrn Urine Cocaine Screen U Marijuana (THC) Screen COVID-19 (EDUAR) Negative COVID-19 Clin Com See Note Influenza Type A (LATIA) Negative Influenza Type B (LATIA) Negative Influenza A & B Note See Note 02/25/22 02/25/22 02/25/22 14:24 14:24 14:24 MCV MCH MCHC RDW Plt Count MPV Immature Gran % (Auto) Neut % (Auto) Lymph % (Auto) [place] % (Auto) Eos % (Auto) Baso % (Auto) Lymph # (Auto) [place] # (Auto) Eos # (Auto) Baso # (Auto) Abs Immat Gran (auto) Absolute Neuts (auto) Absolute Nucleated RBC Nucleated RBC % (auto) Smear Tech's Comments ESR PT INR APTT Fibrinogen D-Dimer High Sensitivty Anion Gap Estim Creat Clear Calc Estimated GFR Random Glucose Lactic Acid 2.4 H* Lactic Acid F/U @ 2Hr Calcium Magnesium Ferritin Total Bilirubin Direct Bilirubin AST ALT Alkaline Phosphatase Lactate Dehydrogenase Total Creatine Kinase Troponin I High Sens < 3.5 C-Reactive Protein Total Protein Albumin Procalcitonin 0.86 Urine Opiates Screen Urine Fentanyl Screen Ur Barbiturates Screen Ur Phencyclidine Scrn Ur Amphetamines Screen U Benzodiazepines Scrn Urine Cocaine Screen U Marijuana (THC) Screen COVID-19 (EDUAR) COVID-19 Clin Com Influenza Type A (LATIA) Influenza Type B (LATIA) Influenza A & B Note 02/25/22 02/25/22 02/25/22 14:25 14:25 14:25 MCV 88.4 MCH 29.0 MCHC 32.8 RDW 14.7 Plt Count 772 H MPV 9.2 L Immature Gran % (Auto) 1.6 H Neut % (Auto) 87.0 H Lymph % (Auto) 5.2 L [place] % (Auto) 5.9 Eos % (Auto) 0.0 Baso % (Auto) 0.3 Lymph # (Auto) 1.6 [place] # (Auto) 1.9 H Eos # (Auto) 0.0 Baso # (Auto) 0.1 Abs Immat Gran (auto) 0.49 H Absolute Neuts (auto) 27.2 H Absolute Nucleated RBC 0.000 Nucleated RBC % (auto) 0.0 Smear Tech's Comments VERIFIED ESR 92 H PT INR APTT Fibrinogen D-Dimer High Sensitivty Anion Gap 19 Estim Creat Clear Calc 148.6 Estimated GFR > 60 Random Glucose 108 Lactic Acid Lactic Acid F/U @ 2Hr Calcium 8.7 Magnesium 1.6 Ferritin 1036 H Total Bilirubin 0.6 Direct Bilirubin 0.3 AST 61 H ALT 31 Alkaline Phosphatase 125 H Lactate Dehydrogenase 172 Total Creatine Kinase 9 L Troponin I High Sens C-Reactive Protein 28.64 H Total Protein 7.4 Albumin 2.4 L Procalcitonin Urine Opiates Screen Urine Fentanyl Screen Ur Barbiturates Screen Ur Phencyclidine Scrn Ur Amphetamines Screen U Benzodiazepines Scrn Urine Cocaine Screen U Marijuana (THC) Screen COVID-19 (EDUAR) COVID-19 Clin Com Influenza Type A (LATIA) Influenza Type B (LATIA) Influenza A & B Note 02/25/22 02/25/22 02/26/22 17:00 17:00 06:59 MCV 88.3 MCH 29.2 MCHC 33.1 RDW 14.9 Plt Count 623 H MPV 9.4 Immature Gran % (Auto) 1.3 H Neut % (Auto) 85.0 H Lymph % (Auto) 7.7 L [place] % (Auto) 5.8 Eos % (Auto) 0.0 Baso % (Auto) 0.2 Lymph # (Auto) 1.9 [place] # (Auto) 1.4 H Eos # (Auto) 0.0 Baso # (Auto) 0.0 Abs Immat Gran (auto) 0.31 H Absolute Neuts (auto) 20.5 H Absolute Nucleated RBC 0.000 Nucleated RBC % (auto) 0.0 Smear Tech's Comments VERIFIED ESR PT INR APTT Fibrinogen D-Dimer High Sensitivty Anion Gap Estim Creat Clear Calc Estimated GFR Random Glucose Lactic Acid Lactic Acid F/U @ 2Hr 1.6 Calcium Magnesium Ferritin Total Bilirubin Direct Bilirubin AST ALT Alkaline Phosphatase Lactate Dehydrogenase Total Creatine Kinase Troponin I High Sens C-Reactive Protein Total Protein Albumin Procalcitonin Urine Opiates Screen Not Detected Urine Fentanyl Screen Not Detected Ur Barbiturates Screen Not Detected Ur Phencyclidine Scrn Not Detected Ur Amphetamines Screen Not Detected U Benzodiazepines Scrn Not Detected Urine Cocaine Screen Not Detected U Marijuana (THC) Screen Not Detected COVID-19 (EDUAR) COVID-19 Clin Com Influenza Type A (LATIA) Influenza Type B (LATIA) Influenza A & B Note 02/26/22 02/26/22 06:59 06:59 MCV MCH MCHC RDW Plt Count MPV Immature Gran % (Auto) Neut % (Auto) Lymph % (Auto) [place] % (Auto) Eos % (Auto) Baso % (Auto) Lymph # (Auto) [place] # (Auto) Eos # (Auto) Baso # (Auto) Abs Immat Gran (auto) Absolute Neuts (auto) Absolute Nucleated RBC Nucleated RBC % (auto) Smear Tech's Comments ESR PT 21.1 H INR 1.8 H APTT Fibrinogen D-Dimer High Sensitivty Anion Gap 13 Estim Creat Clear Calc 185.0 Estimated GFR > 60 Random Glucose 86 Lactic Acid Lactic Acid F/U @ 2Hr Calcium 7.8 L D Magnesium Ferritin Total Bilirubin Direct Bilirubin AST ALT Alkaline Phosphatase Lactate Dehydrogenase Total Creatine Kinase Troponin I High Sens C-Reactive Protein Total Protein Albumin Procalcitonin Urine Opiates Screen Urine Fentanyl Screen Ur Barbiturates Screen Ur Phencyclidine Scrn Ur Amphetamines Screen U Benzodiazepines Scrn Urine Cocaine Screen U Marijuana (THC) Screen COVID-19 (EUDAR) COVID-19 Clin Com Influenza Type A (LATIA) Influenza Type B (LATIA) Influenza A & B Note Microbiology Microbiology Results: Microbiology 02/25/22 17:00 Gram Stain - Final Sputum - Expectorated Assessment and Plan (1) Severe protein-calorie malnutrition: Status: Acute (2) Sepsis: Status: Acute (3) Necrotizing bronchopneumonia: Status: Acute Plan 51-year-old male history of gastritis, also drug use in the past on methadone came with sepsis /pneumonia. 1. Sepsis secondary to pneumonia(necrotizing pneumonia)-symptoms are from 6 weeks. Has tachycardia and tachypnea wbc improving elevated ferritn ,crp,esr , procalcitonin. cta -shows necrotizing pneumonia, no pulm embolism Patient was given Levaquin, vancomycin and Zosyn in the ED,vanco trough Will continue above antibiotics, also blood culture the sport test hepatitis C, HIV also sent by ED, T spot, AFB and sputum culture pening. Pulmonary evaluation noted -contnue IV antibiotics, will add Ensure for on nutrition, also nutritions evaluation Patient on airborne isolation 2. Opioid use: Patient already on methadone Continue methadone. 3.hx of gastritis : continue ppi 4.elevated pt/inr -as per the patient is not eating well from 6 weeks-so possible nutritional D-dimer elevated, will add fibrin origin to complete the workup for coagulopathy ldh normal Added vitamin K 5. Mild elevation of LFTs chronic -possible related to etoh use. improved. 6. hyponatremia:possible low po intake ,seems dry continue gentle hydration 7 Hemoglobin hemoglobin to crit drop: Anemia seems multifactorial-nutritional, sepsis, folate, iron are also low. Repeathb/hct trend down to 8 range Type and cross Iron panel-anemia seems normocytic -seems mixed iron ,also folate low check fobt 8. possible moderate malnutrition: Low albumin, coagulopathy, weight loss Will add fisher crab evaluation. DVT prophylaxis: Mechanical devices secondary to anemia. Need for inpatient: Sepsis secondary to necrotizing pneumonia Quality Stroke Does the patient have a stroke diagnosis?: No VTE Prior VTE?: No VTE Risk Level:: Medical - moderate - high VTE Device Contraindication: N/A - Device Ordered VTE Drug Contraindication: N/A - Med Ordered
[2022-02-26 08:44] LABS: HIV AB/AG Nonreactive (Nonreactive); HIV Num 1 0.06 S/CO (0.00-0.99); ~HepC Num1 0.12 S/CO (0.00-0.79); ~Hepatitis C Antibody Nonreactive (Nonreactive)
[2022-02-26 09:02] LABS: Iron 8 mcg/dL (45-160); Percent Iron Saturation 8 % (15-50); Total Iron Binding Capacity 97 mcg/dL (228-428); Unsaturated Iron Binding 89 ug/dL
[2022-02-26 09:18] LABS: Alanine Aminotransferase 18 U/L (0-40); Albumin Level 1.8 g/dL (3.5-5.0); Alkaline Phosphatase 90 U/L (39-117); Aspartate Amino Transferase 34 U/L (5-37); Bilirubin Direct 0.3 mg/dL (0.0-0.5); Bilirubin Total 0.4 mg/dL (0.0-1.0); Total Protein 5.4 g/dL (6.5-8.0)
[2022-02-26] MEDS: Phytonadione (Vit K1) Oral 10 MG/ML AMPUL PO (09:55)
[2022-02-26 10:08] LABS: Folate 3.8 ng/mL (> or = 4.0); Vitamin B12 943 pg/mL (200-900)
--- NOTE | 2022-02-26 11:57 | PM.CNPUL ---
History of Present Illness History of Present Illness Consult date: 02/26/22 Requesting physician: Molly Quinn Chief complaint: sepsis/cavitory pneumonia-needs [facility] Narrative: 51-year-old gentleman, former 20+ pack-year smoker, with underlying history opioid dependence now methadone, prior alcohol abuse, homelessness, prior incarceration admitted on 02/25/2022 with several months history of progressive dyspnea associated with cough productive of brown green sputum, poor p.o. intake, and weight loss of approximately 30 lb. On ER evaluation patient noted to a multilobar right-sided necrotizing with severe protein calorie malnutrition. Patient was started on empiric broad-spectrum antibiotics. Sputum culture and acid-fast smear were sent. Patient has been admitted to general medical [facility]. Today he endorses some improvement in his dyspnea. Review of Systems Constitutional: Constitutional: Denies daytime sleepiness, Denies excessive sweating, Denies fatigue, Denies fever(s), Denies lethargy, Reports malaise, Reports night sweats, Denies snoring and Denies weight loss Eyes: Eyes: Denies blurry vision and Denies itchy eyes ENT: Denies nasal congestion, Denies post nasal drip, Denies sinus pain, Denies sinus pressure and Denies other ( Thrush) Cardiovascular: Cardiovascular: Denies chest pain, Denies pedal edema, Denies dyspnea, Reports dyspnea on exertion, Denies orthopnea and Denies paroxysmal nocturnal dyspnea Respiratory: Respiratory: Reports cough, Denies hemoptysis, Reports excessive phlegm production, Denies dyspnea, Reports dyspnea on exertion, Denies snoring and Denies wheezing Gastrointestinal: Gastrointestinal: Denies abdominal pain and Denies heartburn Musculoskeletal: Musculoskeletal: Denies myalgias, Denies arthralgias and Denies joint swelling Integumentary/Breasts: Skin/Breast: Denies rash Neurologic: Denies memory loss and Denies seizure-like activity Psychiatric: Psychiatric: Denies abnormal sleep pattern, Denies anxiety and Denies memory loss Endocrine: Endocrine: Denies excessive sweating, Denies fatigue and Denies heat intolerance Hematologic/Lymphatic: Hematologic/Lymphatic: Denies easy bruising Allergic/Immunologic: Allergic/Immunologic: Denies itchy eyes, Denies seasonal rhinorrhea and Denies wheezing PMFSH Past Medical History Medical History Gastritis Methadone dependence Smoker Social History Social History Alcohol intake: current Patient Tobacco Use Status: Current everyday Tobacco user Smoked in Last 30 Days: Yes Use of substances other than those prescribed or required for medical reasons: No Substance Use Type: Former Substance User and Opiates Last Used Substance: Weeks (ago) Advance Directives: No Advance Directives Information Provided: No Meds Allergies Allergy/AdvReac Type Severity Reaction Status Date / Time morphine [MORPHINE] Allergy Unknown NAUSEA & Verified 02/26/22 07:53 VOMITING, ABD PAIN Active Medications: Current Medications Albuterol/Ipratropium (Albuterol/Iprat 2.5/0.5mg 3 Ml Ampul.Neb) 3 ml INHALE RQ4H WHILE AWAKE [facility] Last Admin: 02/26/22 08:15 Dose: 3 ml Documented by: Folic Acid (Folic Acid 1 Mg Tablet) 1 mg PO DAILY [facility] Last Admin: 02/26/22 08:11 Dose: 1 mg Documented by: Lactated Ringer's (Lr) 1,000 mls @ 100 mls/hr IVCONT .Q10H [facility] Last Admin: 02/26/22 05:57 Dose: 100 mls/hr Documented by: Piperacillin Sod/Tazobactam (Sod 4.5 gm/ Sodium Chloride) 100 mls @ 200 mls/hr IV Q6H [facility] Last Infusion: 02/26/22 11:06 Dose: Infused Documented by: Levofloxacin (Levaquin) 500 mg in 100 mls @ 100 mls/hr IV Q24H [facility] Vancomycin HCl 1,500 mg/ (Sodium Chloride) 500 mls @ 333.333 mls/hr IV Q12H [facility] Last Admin: 02/26/22 05:58 Dose: 333.33 mls/hr Documented by: Methadone HCl (Methadone Hcl 20 Mg/2 Ml Oral.Conc) 30 mg PO DAILY [facility] Last Admin: 02/26/22 08:11 Dose: 30 mg Documented by: Multivitamins/Vitamin C (Multivitamin Tablet) 1 tab PO BEDTIME [facility] Last Admin: 02/25/22 19:49 Dose: 1 tab Documented by: Omeprazole (Omeprazole 20 Mg Capsule.Dr) 20 mg PO DAILY@0630 [facility] Last Admin: 02/26/22 05:56 Dose: 20 mg Documented by: Pharmacy Consult (Consult Rx Perform Med Rec) 1 each MISCELLANE ONCE PRN PRN Reason: Consult order Pharmacy Consult (Consult Rx Vancomycin Dosing) 1 each MISCELLANE DAILY PRN PRN Reason: Consult order Sodium Chloride (0.9 % Sodium Chloride Flush 3 Ml Syringe) 3 ml IVFLUSH QSHIFT [facility] Last Admin: 02/26/22 07:45 Dose: Not Given Documented by: Thiamine HCl (Thiamine Hcl 100 Mg Tablet) 100 mg PO DAILY [facility] Last Admin: 02/26/22 08:11 Dose: 100 mg Documented by: Home Medications Medication Instructions Recorded Confirmed Last Taken Type methadone 10 mg/mL oral concentrate 30 mg PO DAILY 02/25/22 02/26/22 02/25/22 History Physical Exam Vital Signs: Vital Signs: Last Vital Signs Temp 99.1 F 02/26/22 06:00 Pulse 129 H 02/26/22 08:19 Resp 16 02/26/22 08:19 BP 106/66 02/26/22 06:00 Pulse Ox 91 L 02/26/22 06:00 BMI result Body Mass Index 24.0 Const: General: no acute distress and alert Nutritional Appearance: not obese Orientation/consciousness: Other orientation findings ( oriented) HEENT: Head: Yes atraumatic Mouth: no other ( thrush) Throat: No postnasal drainage Eyes: General: appearance normal, both eyes and all related structures Sclerae: sclerae normal EOM: EOMs intact bilaterally Neck: Neck: Yes supple Lymphatic: no lymphadenopathy noted Resp: Effort & Inspection: normal respiratory effort and no use of accessory muscles Auscultation: clear to auscultation bilaterally Cardio: Rate: regular rate Rhythm: regular rhythm Heart sounds: no gallops, no murmurs and no rubs GI: Palpation (GI): Soft to palpation and Other GI palpation findings present ( nontender) Skin: General skin exam: other ( warm) Rashes: no rashes Extrem: General: No clubbing, No cyanosis and No edema Results Laboratory Findings CBC and BMP: 02/26/22 06:59 02/26/22 06:59 ABG, PT/INR, D-dimer: PT/INR, D-dimer PT 21.1 SEC (9.9-13.0) H 02/26/22 06:59 INR 1.8 (0.9-1.1) H 02/26/22 06:59 Abnormal lab findings: Abnormal Labs 0502/25/22 02/25/22 14:24 14:24 14:25 WBC 31.3 H* RBC 3.72 L Hgb 10.8 L Hct 32.9 L Plt Count 772 H MPV 9.2 L Immature Gran % (Auto) 1.6 H Neut % (Auto) 87.0 H Lymph % (Auto) 5.2 L [place] # (Auto) 1.9 H Abs Immat Gran (auto) 0.49 H Absolute Neuts (auto) 27.2 H ESR PT 20.1 H INR 1.7 H Fibrinogen > 700 H Sodium Chloride BUN Lactic Acid 2.4 H* Calcium Iron TIBC % Saturation Ferritin AST Alkaline Phosphatase Total Creatine Kinase C-Reactive Protein Total Protein Albumin Vitamin B12 Folate 02/25/22 02/25/22 02/26/22 14:25 14:25 06:59 WBC 24.1 H RBC 2.91 L D Hgb 8.5 L D Hct 25.7 L D Plt Count 623 H MPV Immature Gran % (Auto) 1.3 H Neut % (Auto) 85.0 H Lymph % (Auto) 7.7 L [place] # (Auto) 1.4 H Abs Immat Gran (auto) 0.31 H Absolute Neuts (auto) 20.5 H ESR 92 H PT INR Fibrinogen Sodium 129 L Chloride 88 L BUN Lactic Acid Calcium Iron TIBC % Saturation Ferritin 1036 H AST 61 H Alkaline Phosphatase 125 H Total Creatine Kinase 9 L C-Reactive Protein 28.64 H Total Protein Albumin 2.4 L Vitamin B12 Folate 02/26/22 02/26/22 02/26/22 06:59 06:59 06:59 WBC RBC Hgb Hct Plt Count MPV Immature Gran % (Auto) Neut % (Auto) Lymph % (Auto) [place] # (Auto) Abs Immat Gran (auto) Absolute Neuts (auto) ESR PT 21.1 H INR 1.8 H Fibrinogen Sodium 130 L Chloride 95 L BUN 6 L Lactic Acid Calcium 7.8 L D Iron 8 L TIBC 97 L % Saturation 8 L Ferritin AST Alkaline Phosphatase Total Creatine Kinase C-Reactive Protein Total Protein 5.4 L D Albumin 1.8 L D Vitamin B12 943 H Folate 3.8 L Microbiology: Microbiology 02/25/22 17:00 Sputum - Expectorated Gram Stain - Final 02/25/22 17:00 Sputum - Expectorated Sputum Culture - Preliminary Culture in progress. Assessment and Plan (1) Necrotizing bronchopneumonia: Status: Acute (2) Severe protein-calorie malnutrition: Status: Acute Plan Impression: 51-year-old gentleman with underlying history of opioid dependence, prior alcohol/substance abuse/incarceration, essentially homeless, admitted with right-sided multilobar necrotizing pneumonia and severe protein calorie malnutrition. Sputum culture and acid-fast smear a pending. Leukocytosis is improving broad-spectrum antibiotics. Recommendations: Agree with current broad-spectrum antibiotic coverage while cultures are pending. Will likely require prolonged treatment for 3-4 weeks. Procedures Date of Service Date of Service: 02/26/22
[2022-02-26 12:55] LABS: Hemoglobin 8.3 g/dl (14.0-18.0)
[2022-02-26 15:34] VITALS: BP 102/67; PULSE 114; RESP 20; TEMP 37.1; O2SAT 94
[2022-02-26 15:36] VITALS: PULSE 113; RESP 16; O2SAT 98
[2022-02-26] MEDS: levoFLOXacin/D5W 500 MG/100 ML PIGGYBACK 100 MG IV (16:19)
--- NOTE | 2022-02-26 16:23 | MHC.CM.PN ---
CM ATTEMPTED TO CONTACT PT WHO IS ON [employer] VIA T/C AT THE NUMBER LISTED IN THE CHART NUMBER OUT OF SERVICE CM WILL ATTEMPT TO CONTACT PT VIA ROOM PHONE ONCE HE IS IN ONE
[2022-02-26 19:25] VITALS: BP 140/68; PULSE 115; RESP 20; TEMP 37.3; O2SAT 93
[2022-02-26] MEDS: Multivitamin TABLET 1 TAB PO (20:13)
[2022-02-26] MEDS: 0.9 % Sodium Chloride Flush 3 ML SYRINGE IVFLUSH (20:17)
--- NOTE | 2022-02-26 22:56 | P.CNID_ITS ---
History of Present Illness Data of Consult Service Date: 02/26/22 Requesting physician: Molly Quinn Primary Care Provider: None Physician HPI Reason for consult: pneumonia He presents with cough and shaking chills and shortness of breath. He has no h/o TB He is homeless. Review of Systems Review of Systems: Yes all other systems are reviewed and are negative [facility] Past Medical History Medical History Gastritis Methadone dependence Smoker Family History Family history: reviewed and not pertinent Social History Social History Household Members: Other Household Members Other:: lives with friends Housing: House Do you presently have visiting nurse or other home services: No Alcohol intake: current Patient Tobacco Use Status: Former Tobacco user Quit Date: 01/27/22 Tobacco use type: Cigarette Cigarette Packs Per Day: 1 Cigarettes Per Day: 20.0 Years Smoked: 29 e-Cigarette/Vaping Use: Never Used Second Hand Smoke Exposure: No Substance Use Type: Former Substance User and Opiates service: No Current occupational status: unemployed Meds Allergies Allergy/AdvReac Type Severity Reaction Status Date / Time morphine [MORPHINE] Allergy Unknown NAUSEA & Verified 02/26/22 07:53 VOMITING, ABD PAIN Active Medications: Current Medications Albuterol/Ipratropium (Albuterol/Iprat 2.5/0.5mg 3 Ml Ampul.Neb) 3 ml INHALE RQ4H WHILE AWAKE [facility] Last Admin: 02/26/22 19:21 Dose: 3 ml Documented by: Folic Acid (Folic Acid 1 Mg Tablet) 1 mg PO DAILY [facility] Last Admin: 02/26/22 08:11 Dose: 1 mg Documented by: Lactated Ringer's (Lr) 1,000 mls @ 100 mls/hr IVCONT .Q10H [facility] Last Admin: 02/26/22 18:19 Dose: 100 mls/hr Documented by: Piperacillin Sod/Tazobactam (Sod 4.5 gm/ Sodium Chloride) 100 mls @ 200 mls/hr IV Q6H [facility] Last Infusion: 02/26/22 21:24 Dose: Infused Documented by: Vancomycin HCl 1,500 mg/ (Sodium Chloride) 500 mls @ 333.333 mls/hr IV Q12H [facility] Last Admin: 02/26/22 18:53 Dose: 333.33 mls/hr Documented by: Methadone HCl (Methadone Hcl 20 Mg/2 Ml Oral.Conc) 30 mg PO DAILY [facility] Last Admin: 02/26/22 08:11 Dose: 30 mg Documented by: Multivitamins/Vitamin C (Multivitamin Tablet) 1 tab PO BEDTIME [facility] Last Admin: 02/26/22 20:13 Dose: 1 tab Documented by: Omeprazole (Omeprazole 20 Mg Capsule.Dr) 20 mg PO DAILY@0630 [facility] Last Admin: 02/26/22 05:56 Dose: 20 mg Documented by: Pharmacy Consult (Consult Rx Perform Med Rec) 1 each MISCELLANE ONCE PRN PRN Reason: Consult order Pharmacy Consult (Consult Rx Vancomycin Dosing) 1 each MISCELLANE DAILY PRN PRN Reason: Consult order Sodium Chloride (0.9 % Sodium Chloride Flush 3 Ml Syringe) 3 ml IVFLUSH QSHIFT [facility] Last Admin: 02/26/22 20:17 Dose: 3 ml Documented by: Thiamine HCl (Thiamine Hcl 100 Mg Tablet) 100 mg PO DAILY [facility] Last Admin: 02/26/22 08:11 Dose: 100 mg Documented by: Home Medications Medication Instructions Recorded Confirmed Last Taken Type methadone 10 mg/mL oral concentrate 30 mg PO DAILY 02/25/22 02/26/22 02/25/22 History Physical Exam Vital Signs: Vital Signs: Last Vital Signs Temp 99.2 F 02/26/22 19:25 Pulse 115 H 02/26/22 19:25 Resp 20 02/26/22 19:25 BP 140/68 H 02/26/22 19:25 Pulse Ox 93 02/26/22 19:25 BMI result Body Mass Index 24.0 HEENT: Head: Yes normal to inspection Mouth: Normal oral and palatal mucosa present Resp: Effort & Inspection: normal respiratory effort and able to speak in complete sentences Cardio: Rate: regular rate Rhythm: regular rhythm GI: Palpation (GI): Soft to palpation and nontender Skin: General skin exam: no rashes or lesions noted Extrem: General: Yes normal to inspection Results Labs CBC & Chem 7: 03/04/22 08:21 03/05/22 06:19 Labs: Short CBC 02/26/22 02/26/22 Range/Units 06:59 12:46 WBC 24.1 H (4.8-10.8) X10*3/uL Hgb 8.5 L D 8.3 L (14.0-18.0) g/dl Hct 25.7 L D 25.0 L (42.0-52.0) % Plt Count 623 H (160-400) X10*3/uL BMP 02/26/22 06:59 Sodium 130 L Potassium 4.1 Chloride 95 L Carbon Dioxide 26 BUN 6 L Creatinine 0.53 Calcium 7.8 L D Liver Function 02/26/22 Range/Units 06:59 Total Bilirubin 0.4 (0.0-1.0) mg/dL Direct Bilirubin 0.3 (0.0-0.5) mg/dL AST 34 D (5-37) U/L ALT 18 (0-40) U/L Alkaline Phosphatase 90 D (39-117) U/L Albumin 1.8 L D (3.5-5.0) g/dL Microbiology Microbiology Results: Microbiology 02/25/22 14:23 Blood - Venous Blood Culture - Preliminary No growth after 24 hours. 02/25/22 14:27 Blood - Venous Blood Culture - Preliminary No growth after 24 hours. 02/25/22 17:00 Sputum - Expectorated Gram Stain - Final 02/25/22 17:00 Sputum - Expectorated Sputum Culture - Preliminary Culture in progress. Assessment and Plan (1) Necrotizing bronchopneumonia: Status: Acute This may be due to poor dental hygeine and abscess. He may have tuberculosis NKDA (2) Acute dyspnea: Status: Resolved Plan Isolate for tuberculosis respiratory Check sputum for AFB Continue Zosyn and Vancomycin,no need Levaquin at this point as atypicals usually dont cause necrotizing infection.
[2022-02-27] VITALS (8 sets, daily range): BP systolic 106–130; BP diastolic 55–75; PULSE 80–125; RESP 16–20; TEMP 36.6–38; O2SAT 92–97; BMI 24.0
[2022-02-27] MEDS: Piperacillin Sodium/Tazobactam 4.5 GM in 0.9 % Sodium Chloride 100 ML IV ×4 (01:19→22:32)
[2022-02-27 04:03] LABS: Hematocrit 25.3 % (42.0-52.0); Hemoglobin 8.4 g/dl (14.0-18.0); Mean Corpuscular HGB Conc 33.2 g/dl (31.0-36.0); Mean Corpuscular Volume 87.2 fL (80.0-98.0); Mean Platelet Volume 8.8 fL (9.4-12.4); Platelet Count 579 X10*3/uL (160-400); White Blood Count 19.3 X10*3/uL (4.8-10.8)
[2022-02-27 04:14] LABS: INTERNATIONAL NORM RATIO 1.5 (0.9-1.1); Prothrombin Time 17.3 SEC (9.9-13.0)
[2022-02-27 04:21] LABS: Anion Gap 11 (12-20); Blood Urea Nitrogen 3 mg/dL (9-16); Calcium 7.7 mg/dL (8.4-10.2); Carbon Dioxide 27 mmol/L (22-29); Chloride 97 mmol/L (96-108); Creatinine Clr Calc Pharmacy 196.1; Estimated Glomerular Filt Rate > 60; Glucose Random 92 mg/dL (60-115); Potassium 3.4 mmol/L (3.3-5.1); Sodium 132 mmol/L (135-145)
[2022-02-27 04:23] LABS: Vancomycin Trough 9.3 mcg/mL (10.0-20.0)
[2022-02-27 04:38] LABS: HIV AB/AG Nonreactive (Nonreactive); HIV Num 1 0.14 S/CO (0.00-0.99)
--- NOTE | 2022-02-27 06:36 | PHA.PROG ---
Addendum entered by Yasemin Cohen [facility] 03/01/22 07:28: 02/28/22 TROUGH 6.9. INCREASED DOSE TO 1250 MG Q8H AND ORDERED ANOTHER TROUGH FOR 03/01/22. TROUGH 03/01/22 = 11.8, KEEP SAME DOSE Addendum entered by Sekou Tapia [facility] 02/27/22 09:03: PT TROUGH 9.3, CHANGED TO 1G Q8H, NEXT TROUGH @ 0500 ON 02/28 Original Note: Admission Date/Time: February 25, 2022 17:51 Indication: RESP Weight in k.6 kg Adjusted body weight in Kg: [place] body weight in Kg: Obesity Dosing Indication % IBW: Serum Creatinine - Last 168 Hours 02/25/22 02/26/22 02/27/22 14:25 06:59 03:57 Creatinine 0.66 0.53 0.50 Estimated CrCl and GFR - Last 168 Hours 02/25/22 02/26/22 02/27/22 14:25 06:59 03:57 Estim Creat Clear Calc 148.6 185.0 196.1 Estimated GFR > 60 > 60 > 60 Vancomycin Loading Dose: Current Vancomycin Dosing Regimen: Trough came back at 9.3 only after 2 doses, we are changing the regimen to 1000 mg q12h. Vancomycin Monitoring using AUC goal of 400 - 600 range with trough as surrogate marker: The model predicts a AUC of 437 and a trough of 13.5. Will continue to monitor renal function. Date and Time for next Vancomycin Level to be drawn: Next trough 02/28 @ 1700 Vancomycin Trough 9.3 mcg/mL (10.0-20.0) L 02/27/22 03:57 Pharmacist Comments on Vancomycin Plan: Vancomycin dosing will take advantage of [employer] as a clinical decision support tool that uses Bayesian modeling to calculate individual patient's pharmacokinetic parameters and forecast the patient's drug concentration time course with the target goal AUC 24 range of 400 - 600 mg/L/hr.
[2022-02-27] MEDS: Lactated Ringers 1,000 ML 100 ML IVCONT ×2 (06:41→22:31)
[2022-02-27] MEDS: vancomycin HCL 1,000 MG in 0.9 % Sodium Chloride 250 ML 270 MG IV ×3 (06:41→23:56)
[2022-02-27] MEDS: Omeprazole 20 MG CAPSULE.DR PO (06:41)
--- NOTE | 2022-02-27 08:49 | P.PNIM_ITS ---
Subjective Subjective Date of Service: 02/27/22 Interval History: sepsis/necrotiing pneumonia Review of Systems Shortness of breath and cough slightly better than yesterday P.o. intake improving Denies any nausea vomiting or abdominal pain. Still on low-grade fever,tmax 100.4 last night Physical Exam Vital Signs: Vital Signs: Last Vital Signs Temp 99.9 F 02/27/22 07:27 Pulse 100 02/27/22 07:27 Resp 20 02/27/22 07:27 BP 113/62 02/27/22 07:27 Pulse Ox 96 02/27/22 07:27 BMI result Body Mass Index 24.0 Appearance: Alert.? Oriented X3.?sob? Eyes: Pupils equal, round and reactive to light.? Sclera nonicteric.? ENT: Pharynx normal.? Moist mucous membranes moist. cvs: rrr, [id number] res: cdiminshed breath sounds on right lung area lower more >upper lung ,rhonchii right side also,left lung is fair air entry. abd: no rebound or guarding ,nt, bs present. ext pulses present , no cyanosis . neuro: axo3 , nonfocal. Objective Data Active Medications Albuterol/Ipratropium (Albuterol/Iprat 2.5/0.5mg 3 Ml Ampul.Neb) 3 ml INHALE RQ4H WHILE AWAKE [facility] Last Admin: 02/27/22 08:03 Dose: Not Given Documented by: CRYS Non-Admin Reason: Patient Refused Ferrous Sulfate (Ferrous Sulfate 300 Mg/5 Ml Liquid) 300 mg PO BIDWM [facility] Folic Acid (Folic Acid 1 Mg Tablet) 1 mg PO DAILY [facility] Last Admin: 02/26/22 08:11 Dose: 1 mg Documented by: COLLETTE Lactated Ringer's (Lr) 1,000 mls @ 100 mls/hr IVCONT .Q10H [facility] Last Admin: 02/27/22 06:41 Dose: 100 mls/hr Documented by: ELENI Piperacillin Sod/Tazobactam (Sod 4.5 gm/ Sodium Chloride) 100 mls @ 200 mls/hr IV Q6H [facility] Last Infusion: 02/27/22 02:52 Dose: 0 mls/hr Documented by: ELENI Vancomycin HCl 1,000 mg/ (Sodium Chloride) 270 mls @ 270 mls/hr IV Q12H [facility] Last Admin: 02/27/22 06:41 Dose: 270 mls/hr Documented by: ELENI Methadone HCl (Methadone Hcl 20 Mg/2 Ml Oral.Conc) 30 mg PO DAILY [facility] Last Admin: 02/26/22 08:11 Dose: 30 mg Documented by: COLLETTE Multivitamins/Vitamin C (Multivitamin Tablet) 1 tab PO BEDTIME [facility] Last Admin: 02/26/22 20:13 Dose: 1 tab Documented by: ELENI Omeprazole (Omeprazole 20 Mg Capsule.Dr) 20 mg PO DAILY@0630 [facility] Last Admin: 02/27/22 06:41 Dose: 20 mg Documented by: ELENI Pharmacy Consult (Consult Rx Perform Med Rec) 1 each MISCELLANE ONCE PRN PRN Reason: Consult order Pharmacy Consult (Consult Rx Vancomycin Dosing) 1 each MISCELLANE DAILY PRN PRN Reason: Consult order Sodium Chloride (0.9 % Sodium Chloride Flush 3 Ml Syringe) 3 ml IVFLUSH QSHIFT [facility] Last Admin: 02/26/22 20:17 Dose: 3 ml Documented by: ELENI Thiamine HCl (Thiamine Hcl 100 Mg Tablet) 100 mg PO DAILY [facility] Last Admin: 02/26/22 08:11 Dose: 100 mg Documented by: COLLETTE Labs CBC & Chem 7: 02/27/22 03:57 02/27/22 03:57 Labs: Laboratory Results - last 24 hr 02/25/22 02/26/22 02/26/22 14:25 06:59 06:59 MCV MCH MCHC RDW Plt Count MPV Absolute Nucleated RBC Nucleated RBC % (auto) PT INR Anion Gap Estim Creat Clear Calc Estimated GFR Random Glucose Calcium Iron 8 L TIBC 97 L % Saturation 8 L Unsat Iron Binding 89 Total Bilirubin 0.4 Direct Bilirubin 0.3 AST 34 D ALT 18 Alkaline Phosphatase 90 D Total Protein 5.4 L D Albumin 1.8 L D Vitamin B12 943 H Folate 3.8 L Vancomycin Trough Hepatitis C Ab (EIA) Nonreactive HIV 1&2 Ab/P24 Ag 4thGn Nonreactive Blood Type Antibody Screen 02/26/22 02/27/22 02/27/22 12:48 03:57 03:57 MCV 87.2 MCH 29.0 MCHC 33.2 RDW 15.0 Plt Count 579 H MPV 8.8 L Absolute Nucleated RBC 0.000 Nucleated RBC % (auto) 0.0 PT INR Anion Gap Estim Creat Clear Calc Estimated GFR Random Glucose Calcium Iron TIBC % Saturation Unsat Iron Binding Total Bilirubin Direct Bilirubin AST ALT Alkaline Phosphatase Total Protein Albumin Vitamin B12 Folate Vancomycin Trough Hepatitis C Ab (EIA) HIV 1&2 Ab/P24 Ag 4thGn Nonreactive Blood Type O Positive Antibody Screen NEGATIVE 02/27/22 02/27/22 02/27/22 03:57 03:57 03:57 MCV MCH MCHC RDW Plt Count MPV Absolute Nucleated RBC Nucleated RBC % (auto) PT 17.3 H INR 1.5 H Anion Gap 11 L Estim Creat Clear Calc 196.1 Estimated GFR > 60 Random Glucose 92 Calcium 7.7 L Iron TIBC % Saturation Unsat Iron Binding Total Bilirubin Direct Bilirubin AST ALT Alkaline Phosphatase Total Protein Albumin Vitamin B12 Folate Vancomycin Trough 9.3 L Hepatitis C Ab (EIA) HIV 1&2 Ab/P24 Ag 4thGn Blood Type Antibody Screen Microbiology Microbiology Results: Microbiology 02/25/22 14:23 Blood Culture - Preliminary Blood - Venous No growth after 24 hours. 02/25/22 14:27 Blood Culture - Preliminary Blood - Venous No growth after 24 hours. 02/25/22 17:00 Gram Stain - Final Sputum - Expectorated Sputum Culture - Preliminary Culture in progress. Assessment and Plan (1) Severe protein-calorie malnutrition: Status: Acute (2) Sepsis: Status: Acute (3) Necrotizing bronchopneumonia: Status: Acute (4) Acute dyspnea: Status: Acute Plan 51-year-old male history of gastritis, also drug use in the past on methadone came with sepsis /pneumonia. 1. Sepsis secondary to pneumonia(necrotizing pneumonia)-symptoms are from 6 weeks. Has tachycardia and tachypnea wbc improving elevated ferritn ,crp,esr , procalcitonin. cta -shows necrotizing pneumonia, no pulm embolism vanco : 9.3 hepatitis C, HIV nonreactive , blood culture neg@24hrs vancomycin adjusted as per pharmacy and Zosyn . T spot, AFB and sputum culture pending. Pulmonary evaluation noted -continue IV antibiotics, added Ensure for on nutrition, also nutritions evaluation Patient on airborne isolation 2. Opioid use: Patient already on methadone Continue methadone. 3.hx of gastritis : continue? ppi 4.elevated pt/inr -as per the patient is not eating well from 6 weeks-so possible nutritional D-dimer elevated, will add fibrin origin to complete the workup for coagulopathy ldh normal s/p vitamin K yesterday-ptt/inr seems improving. 5. Mild elevation of LFTs chronic -possible related to etoh use. improved. 6. hyponatremia:possible low po intake ,seems dry continue gentle hydration 7 Hemoglobin hemoglobin to crit drop:? Anemia seems multifactorial-nutritional, sepsis, folate, iron are also low. h/h 8.4/25.3 Iron panel-anemia seems normocytic -seems mixed iron ,also folate low check fobt willadd iron ? 8.? severe protein calorie malnutrition: Low albumin sec possible nutrional, coagulopathy, weight loss Will add simulation developer evaluation. DVT prophylaxis:? Mechanical devices secondary to anemia. Need for inpatient:? Sepsis secondary to necrotizing pneumonia Quality Stroke Does the patient have a stroke diagnosis?: No VTE Prior VTE?: No VTE Risk Level:: Medical - moderate - high VTE Device Contraindication: N/A - Device Ordered VTE Drug Contraindication: N/A - Med Ordered
[2022-02-27] MEDS: 0.9 % Sodium Chloride Flush 3 ML SYRINGE IVFLUSH ×2 (09:22→15:47)
[2022-02-27] MEDS: Thiamine HCL 100 MG TABLET PO (09:23)
[2022-02-27] MEDS: methADONE HCl 20 MG/2 ML ORAL.CONC 30 MG PO (09:23)
[2022-02-27] MEDS: Folic Acid 1 MG TABLET PO (09:23)
--- NOTE | 2022-02-27 10:01 | PC.NURSE ---
The patient is under respiratory precaution awaiting for respiratory test results. The room's negative pressure is not working, I consulted Infectious Disease staff who said there is someone coming to fix it.
--- NOTE | 2022-02-27 10:16 | MHC.CM.PN ---
Male 51 DX Sepsis Cavitary PNA Airborne precautions. He lives with friends. He is independent with all functional mobility at baseline. He states that he is extremely weak. He will agree to STR if PT qualifies him. DP pending PT eval STR via BLS.
[2022-02-27] MEDS: Ferrous Sulfate 300 MG/5 ML LIQUID PO ×2 (10:28→15:44)
--- NOTE | 2022-02-27 10:52 | P.CDIC_ITS ---
CDI Concurrent Query Documentation Clarification: PHYSICIAN'S DOCUMENTATION REQUEST Date of Query: 02/27/22 1052 Patient Name: Rodriguez Frazier Admit Date: 02/25/22 Dear Doctor, A review of the medical record indicates additional documentation may be needed. Please review below and update the documentation accordingly. Clinical Indicators: Risk Factors/Clinical Indicators/Treatments Lab findings - albumin 1.8 L Low po intake, low albumin, coagulopathy, weight loss. Based on the above, could you clarify in the Progress Notes the appropriate diagnosis, if significant, that supports the above abnormalities and additional evaluation, monitoring, and/or treatment rendered: * Hypoalbuminemia or other etiology of lab findings * Labs indicate a diagnosis of (please specify) * Other (please specify) * Unable to determine Use of terms such as suspected, likely, concern for, or probable (associated with a specific diagnosis that is being evaluated, monitored, or treated as if it exists) are acceptable and can be coded in the inpatient setting, when documented at the time of discharge. Thank you, Maribell Sommers [facility], CDIS Extension: [phone] Please use your independent medical judgment in providing your response. THIS QUERY IS PART OF THE PERMANENT MEDICAL RECORD Provider Response: Other Other Diagnosis: Hypoalbuminemia possibly related to nutritional(decreased p.o. intake.)
[2022-02-27] MEDS: Albuterol/Iprat 2.5/0.5MG 3 ML AMPUL.NEB INHALE (11:03)
--- NOTE | 2022-02-27 11:16 | MHC.CLN ---
RE: CONSULT PT IS SEVERELY MALNOURISHED PT'S UBW 210#; 16% SIGNIFICANT WT LOSS X 6 MONTHS PT REPORTED WT LOSS 30-40# SPINNER OPEN END WITH CHRONIC POOR PO INTAKE X 6 WEEKS PO INTAKE 100% X 1 MEAL DIET RX: REGULAR-APPROPRIATE MD ADDED 8OZ ENSURE TID PROVIDES 1050KCALS, 60G PROTEIN SUPP PROVIDES 47% EST. KCALS NEEDS, 62% EST PROTEIN NEEDS MONITOR PO INTAKE CLOSELY SEE ALSO FULL CLINICAL NUTRITION ASSESSMENT
[2022-02-27] MEDS: Acetaminophen 325 MG TABLET 650 MG PO (15:52)
[2022-02-27] MEDS: Multivitamin TABLET 1 TAB PO (22:33)
[2022-02-28] VITALS (7 sets, daily range): BP systolic 109–122; BP diastolic 57–67; PULSE 107–121; RESP 18–24; TEMP 36.5–38.3; O2SAT 88–93
[2022-02-28 00:26] LABS: TS Negative Control Passed; TS Panel A 0; TS Panel B 0; TS Positive Control Passed; TSpotTB Negative (Negative)
[2022-02-28] MEDS: 0.9 % Sodium Chloride Flush 3 ML SYRINGE IVFLUSH ×2 (01:16→14:53)
[2022-02-28] MEDS: Lactated Ringers 1,000 ML 100 ML IVCONT (01:19)
[2022-02-28] MEDS: Piperacillin Sodium/Tazobactam 4.5 GM in 0.9 % Sodium Chloride 100 ML IV ×4 (02:40→20:34)
[2022-02-28] MEDS: Omeprazole 20 MG CAPSULE.DR PO (06:16)
[2022-02-28 06:30] LABS: Hematocrit 26.2 % (42.0-52.0); Hemoglobin 8.7 g/dl (14.0-18.0); Mean Corpuscular HGB Conc 33.2 g/dl (31.0-36.0); Mean Corpuscular Hemoglobin 29.1 pg (27.0-33.0); Mean Corpuscular Volume 87.6 fL (80.0-98.0); Mean Platelet Volume 9.4 fL (9.4-12.4); Platelet Count 682 X10*3/uL (160-400); Red Blood Count 2.99 X10*6/uL (4.60-5.80); Red Cell Distribution Width 15.1 % (11.0-16.0); White Blood Count 21.1 X10*3/uL (4.8-10.8)
[2022-02-28 06:38] LABS: Anion Gap 11 (12-20); Blood Urea Nitrogen 4 mg/dL (9-16); Calcium 7.9 mg/dL (8.4-10.2); Carbon Dioxide 30 mmol/L (22-29); Chloride 94 mmol/L (96-108); Creatinine Clr Calc Pharmacy 213.2; Estimated Glomerular Filt Rate > 60; Glucose Random 111 mg/dL (60-115); Potassium 3.4 mmol/L (3.3-5.1); Sodium 132 mmol/L (135-145); Vancomycin Trough 6.3 mcg/mL (10.0-20.0)
[2022-02-28 06:55] LABS: INTERNATIONAL NORM RATIO 1.4 (0.9-1.1); Prothrombin Time 15.5 SEC (9.9-13.0)
[2022-02-28] MEDS: Albuterol/Iprat 2.5/0.5MG 3 ML AMPUL.NEB INHALE ×2 (08:18→11:30)
--- NOTE | 2022-02-28 09:18 | P.PNIM_ITS ---
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 Physical Exam Vital Signs: Vital Signs: Last Vital Signs Temp 98.8 F 02/28/22 08:00 Pulse 120 H 02/28/22 08:21 Resp 24 H 02/28/22 08:21 BP 113/63 02/28/22 08:00 Pulse Ox 93 02/28/22 08:00 BMI result Body Mass Index 24.0 Appearance: Alert.? Oriented X3.?sob?/cough Eyes: Pupils equal, round and reactive to light.? Sclera nonicteric.? ENT: Pharynx normal.? Moist mucous membranes moist. cvs: rrr, [id number] res: cdiminshed breath sounds on right lung area lower more >upper lung ,rhonchii right side also,left lung is fair air entry. abd: no rebound or guarding ,nt, bs present. ext pulses present , no cyanosis . neuro: axo3 , nonfocal. Objective Data Active Medications Acetaminophen (Acetaminophen 325 Mg Tablet) 650 mg PO Q6H PRN PRN Reason: Fever Last Admin: 02/27/22 15:52 Dose: 650 mg Documented by: AMARIS Albuterol/Ipratropium (Albuterol/Iprat 2.5/0.5mg 3 Ml Ampul.Neb) 3 ml INHALE RQ4H WHILE AWAKE [facility] Last Admin: 02/28/22 08:18 Dose: 3 ml Documented by: NASEEM Ferrous Sulfate (Ferrous Sulfate 300 Mg/5 Ml Liquid) 300 mg PO BIDWM [facility] Last Admin: 02/27/22 15:44 Dose: 300 mg Documented by: AMARIS Folic Acid (Folic Acid 1 Mg Tablet) 1 mg PO DAILY [facility] Last Admin: 02/27/22 09:23 Dose: 1 mg Documented by: AMARIS Guaifenesin (Guaifenesin 100 Mg/5 Ml Liquid) 5 ml PO Q6H [facility] Piperacillin Sod/Tazobactam (Sod 4.5 gm/ Sodium Chloride) 100 mls @ 200 mls/hr IV Q6H [facility] Last Infusion: 02/28/22 04:01 Dose: 0 mls/hr Documented by: RADHA Vancomycin HCl 1,250 mg/ (Sodium Chloride) 250 mls @ 166.667 mls/hr IV Q8H [facility] Loratadine (Loratadine 10 Mg Tablet) 10 mg PO DAILY [facility] Methadone HCl (Methadone Hcl 20 Mg/2 Ml Oral.Conc) 30 mg PO DAILY [facility] Last Admin: 02/27/22 09:23 Dose: 30 mg Documented by: AMARIS Multivitamins/Vitamin C (Multivitamin Tablet) 1 tab PO BEDTIME [facility] Last Admin: 02/27/22 22:33 Dose: 1 tab Documented by: TREY Omeprazole (Omeprazole 20 Mg Capsule.Dr) 20 mg PO DAILY@0630 [facility] Last Admin: 02/28/22 06:16 Dose: 20 mg Documented by: RADHA Pharmacy Consult (Consult Rx Perform Med Rec) 1 each MISCELLANE ONCE PRN PRN Reason: Consult order Pharmacy Consult (Consult Rx Vancomycin Dosing) 1 each MISCELLANE DAILY PRN PRN Reason: Consult order Sodium Chloride (0.9 % Sodium Chloride Flush 3 Ml Syringe) 3 ml IVFLUSH QSHIFT [facility] Last Admin: 02/28/22 01:16 Dose: 3 ml Documented by: RADHA Thiamine HCl (Thiamine Hcl 100 Mg Tablet) 100 mg PO DAILY [facility] Last Admin: 02/27/22 09:23 Dose: 100 mg Documented by: AMARIS Labs CBC & Chem 7: 02/28/22 05:53 02/28/22 05:53 Labs: Laboratory Results - last 24 hr 02/25/22 02/28/22 02/28/22 14:24 05:53 05:53 MCV MCH MCHC RDW Plt Count MPV Absolute Nucleated RBC Nucleated RBC % (auto) PT INR Anion Gap 11 L Estim Creat Clear Calc 213.2 Estimated GFR > 60 Random Glucose 111 Calcium 7.9 L Vancomycin Trough 6.3 L TB Test (T-Spot) Com Negative TB Test Nil Control Passed TB Test Panel A 0 TB Test Panel B 0 TB Test Positive Cntrl Passed 02/28/22 02/28/22 05:53 05:53 MCV 87.6 MCH 29.1 MCHC 33.2 RDW 15.1 Plt Count 682 H MPV 9.4 Absolute Nucleated RBC 0.000 Nucleated RBC % (auto) 0.0 PT 15.5 H INR 1.4 H Anion Gap Estim Creat Clear Calc Estimated GFR Random Glucose Calcium Vancomycin Trough TB Test (T-Spot) Com TB Test Nil Control TB Test Panel A TB Test Panel B TB Test Positive [facility] Microbiology Microbiology Results: Microbiology 02/25/22 14:23 Blood Culture - Preliminary Blood - Venous No growth after 48 hours. 02/25/22 14:27 Blood Culture - Preliminary Blood - Venous No growth after 48 hours. 02/25/22 17:00 Gram Stain - Final Sputum - Expectorated Sputum Culture - Final Assessment and Plan (1) Severe protein-calorie malnutrition: Status: Acute (2) Sepsis: Status: Acute (3) Necrotizing bronchopneumonia: Status: Acute (4) Acute dyspnea: Status: Acute Plan 51-year-old male history of gastritis, also drug use in the past on methadone came with sepsis /pneumonia. 1. Sepsis secondary to pneumonia(necrotizing pneumonia)-symptoms are from 6 weeks. Has tachycardia and tachypnea wbc improving elevated ferritn ,crp,esr , procalcitonin. cta -shows necrotizing pneumonia, no pulm embolism vanco : 6.3 hepatitis C, HIV nonreactive , blood culture neg@48hrs vancomycin adjusted as per pharmacy and Zosyn . T spot, AFB and sputum culture pending. Pulmonary evaluation noted -continue IV antibiotics, added Ensure for on nutrition, also nutritions evaluation Patient on airborne isolation 2. Opioid use: Patient already on methadone Continue methadone. 3.hx of gastritis : continue? ppi 4.elevated pt/inr -as per the patient is not eating well from 6 weeks-so possible nutritional D-dimer elevated, will add fibrin origin to complete the workup for coagulopathy ldh normal s/p vitamin K yesterday-ptt/inr seems improving. 5. Mild elevation of LFTs chronic -possible related to etoh use. improved. 6. hyponatremia:possible low po intake ,seems dry continue gentle hydration 7 Hemoglobin hemoglobin to crit drop:? Anemia seems multifactorial-nutritional, sepsis, folate, iron are also low. h/h stable around 8.7 Iron panel-anemia seems normocytic -seems mixed iron ,also folate low check fobt added iron ? 8.? severe protein calorie malnutrition: Low albumin sec possible nutrional, coagulopathy, weight loss Will add sheeting puller evaluation. DVT prophylaxis: will add s/c heaprin since inr improving , also h/h stable ,no gross bleed so far. Need for inpatient:? Sepsis secondary to necrotizing pneumonia Quality Stroke Does the patient have a stroke diagnosis?: No VTE Prior VTE?: No VTE Risk Level:: Medical - moderate - high VTE Device Contraindication: N/A - Device Ordered VTE Drug Contraindication: N/A - Med Ordered
[2022-02-28] MEDS: methADONE HCl 20 MG/2 ML ORAL.CONC 30 MG PO (09:22)
[2022-02-28] MEDS: Ferrous Sulfate 300 MG/5 ML LIQUID PO ×2 (09:22→17:56)
[2022-02-28] MEDS: Folic Acid 1 MG TABLET PO (09:23)
[2022-02-28] MEDS: Thiamine HCL 100 MG TABLET PO (09:23)
[2022-02-28] MEDS: Loratadine 10 MG TABLET PO (09:23)
[2022-02-28] MEDS: vancomycin HCL 1,250 MG in 0.9 % Sodium Chloride 250 ML 166.67 MG IV (09:23)
[2022-02-28] MEDS: guaiFENesin 100 MG/5 ML LIQUID PO ×3 (09:23→20:34)
[2022-02-28] MEDS: polyethylene glycoL 3350 17 GM POWD.PACK PO (17:56)
[2022-02-28] MEDS: Docusate Sodium 100 MG CAPSULE PO (17:56)
[2022-02-28] MEDS: Heparin Sodium,Porcine 5,000 UNIT/ML VIAL 5000 UNIT SUBCUT (17:56)
[2022-02-28] MEDS: vancomycin HCL 1,250 MG in 0.9 % Sodium Chloride 250 ML 166.66 MG IV (17:57)
[2022-02-28] MEDS: Multivitamin TABLET 1 TAB PO (20:34)
[2022-03-01] VITALS (8 sets, daily range): BP systolic 110–135; BP diastolic 57–74; PULSE 97–111; RESP 18–20; TEMP 36.1–37.8; O2SAT 91–93
[2022-03-01] MEDS: 0.9 % Sodium Chloride Flush 3 ML SYRINGE IVFLUSH ×3 (00:06→16:22)
[2022-03-01] MEDS: vancomycin HCL 1,250 MG in 0.9 % Sodium Chloride 250 ML 166.66 MG IV ×2 (00:06→10:57)
[2022-03-01] MEDS: Piperacillin Sodium/Tazobactam 4.5 GM in 0.9 % Sodium Chloride 100 ML IV ×4 (01:54→20:42)
[2022-03-01] MEDS: guaiFENesin 100 MG/5 ML LIQUID PO ×4 (01:55→20:42)
[2022-03-01] MEDS: Heparin Sodium,Porcine 5,000 UNIT/ML VIAL 5000 UNIT SUBCUT (04:30)
[2022-03-01] MEDS: Omeprazole 20 MG CAPSULE.DR PO (05:23)
[2022-03-01 07:07] LABS: Vancomycin Trough 11.8 mcg/mL (10.0-20.0)
--- NOTE | 2022-03-01 08:24 | HO.PM.IMPN ---
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 similar to yesterday, has lot cough. Physical Exam Vital Signs: Vital Signs: Last Vital Signs Temp 100.0 F 03/01/22 08:00 Pulse 110 H 03/01/22 08:00 Resp 20 03/01/22 08:00 BP 117/74 03/01/22 08:00 Pulse Ox 93 03/01/22 08:00 BMI result Body Mass Index 24.0 Appearance: Alert.? Oriented X3.?sob?/cough cvs: rrr, [id number] res: cdiminshed breath sounds on right lung area lower more >upper lung ,rhonchii right side also,left lung is fair air entry. abd: no rebound or guarding ,nt, bs present. ext pulses present , no cyanosis . neuro: axo3 , nonfocal. Objective Data Active Medications Acetaminophen (Acetaminophen 325 Mg Tablet) 650 mg PO Q6H PRN PRN Reason: Fever Last Admin: 02/27/22 15:52 Dose: 650 mg Documented by: AMARIS Albuterol/Ipratropium (Albuterol/Iprat 2.5/0.5mg 3 Ml Ampul.Neb) 3 ml INHALE RQ4H WHILE AWAKE [facility] Last Admin: 02/28/22 19:35 Dose: Not Given Documented by: DINORAH Non-Admin Reason: Patient Refused Ferrous Sulfate (Ferrous Sulfate 300 Mg/5 Ml Liquid) 300 mg PO BIDWM [facility] Last Admin: 02/28/22 17:56 Dose: 300 mg Documented by: JAIRO Folic Acid (Folic Acid 1 Mg Tablet) 1 mg PO DAILY [facility] Last Admin: 02/28/22 09:23 Dose: 1 mg Documented by: JAIRO Guaifenesin (Guaifenesin 100 Mg/5 Ml Liquid) 5 ml PO Q6H [facility] Last Admin: 03/01/22 01:55 Dose: 5 ml Documented by: SERAFIN Heparin Sodium (Porcine) (Heparin Sodium,Porcine 5,000 Unit/Ml Vial) 5,000 unit SUBCUT Q12H [facility] Last Admin: 03/01/22 04:30 Dose: 5,000 unit Documented by: SERAFIN Piperacillin Sod/Tazobactam (Sod 4.5 gm/ Sodium Chloride) 100 mls @ 200 mls/hr IV Q6H [facility] Last Infusion: 03/01/22 02:40 Dose: 0 mls/hr Documented by: SERAFIN Vancomycin HCl 1,250 mg/ (Sodium Chloride) 250 mls @ 166.667 mls/hr IV Q8H [facility] Last Infusion: 03/01/22 01:54 Dose: 0 mls/hr Documented by: SERAFIN Loratadine (Loratadine 10 Mg Tablet) 10 mg PO DAILY [facility] Last Admin: 02/28/22 09:23 Dose: 10 mg Documented by: JAIRO Methadone HCl (Methadone Hcl 20 Mg/2 Ml Oral.Conc) 30 mg PO DAILY [facility] Last Admin: 02/28/22 09:22 Dose: 30 mg Documented by: JAIRO Multivitamins/Vitamin C (Multivitamin Tablet) 1 tab PO BEDTIME [facility] Last Admin: 02/28/22 20:34 Dose: 1 tab Documented by: REMY Omeprazole (Omeprazole 20 Mg Capsule.Dr) 20 mg PO DAILY@0630 [facility] Last Admin: 03/01/22 05:23 Dose: 20 mg Documented by: SERAFIN Pharmacy Consult (Consult Rx Perform Med Rec) 1 each MISCELLANE ONCE PRN PRN Reason: Consult order Pharmacy Consult (Consult Rx Vancomycin Dosing) 1 each MISCELLANE DAILY PRN PRN Reason: Consult order Polyethylene Glycol (Polyethylene Glycol 3350 17 Gm Powd.Pack) 17 gm PO DAILY [facility] Last Admin: 02/28/22 17:56 Dose: 17 gm Documented by: JAIRO Sodium Chloride (0.9 % Sodium Chloride Flush 3 Ml Syringe) 3 ml IVFLUSH QSHIFT [facility] Last Admin: 03/01/22 00:06 Dose: 3 ml Documented by: SERAFIN Thiamine HCl (Thiamine Hcl 100 Mg Tablet) 100 mg PO DAILY [facility] Last Admin: 02/28/22 09:23 Dose: 100 mg Documented by: JAIRO Labs CBC & Chem 7: 03/01/22 06:15 03/01/22 Unknown Labs: Laboratory Results - last 24 hr 03/01/22 06:15 Vancomycin Trough 11.8 Assessment and Plan (1) Severe protein-calorie malnutrition: Status: Acute (2) Necrotizing bronchopneumonia: Status: Acute Plan 51-year-old male history of gastritis, also drug use in the past on methadone came with sepsis /pneumonia. 1. Sepsis secondary to pneumonia(necrotizing pneumonia)-symptoms are from 6 weeks. Has tachycardia and tachypnea wbc improving elevated ferritn ,crp,esr , procalcitonin. cta -shows necrotizing pneumonia, no pulm embolism vanco : 11.8 ?hepatitis C, HIV nonreactive , blood culture [id number] ?vancomycin as per pharmacy and Zosyn . T spot, AFB x3and sputum culture pending. Pulmonary evaluation noted -continue IV antibiotics, added? Ensure for on nutrition, also nutritions evaluation Patient on airborne isolation 2. Opioid use: Patient already on methadone Continue methadone. 3.hx of gastritis : continue? ppi 4.elevated pt/inr -as per the patient is not eating well from 6 weeks-so possible nutritional D-dimer elevated, will add fibrin origin to complete the workup for coagulopathy ldh normal s/p vitamin K yesterday-ptt/inr seems improving. 5. Mild elevation of LFTs chronic -possible related to etoh use. improved. 6. hyponatremia:possible low po intake ,seems dry continue gentle hydration 7 Hemoglobin hemoglobin to crit drop:? Anemia seems multifactorial-nutritional, sepsis, folate, iron are also low. h/h stable around 8.7 Iron panel-anemia seems normocytic -seems mixed iron ,also folate low check fobt added? iron ? 8.? 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 DVT prophylaxis: will add s/c heaprin since inr improving , also? h/h stable ,no gross bleed so far. Need for inpatient:? Sepsis secondary to necrotizing pneumonia Quality Stroke Does the patient have a stroke diagnosis?: No VTE Prior VTE?: No VTE Risk Level:: Medical - moderate - high VTE Device Contraindication: N/A - Device Ordered VTE Drug Contraindication: N/A - Med Ordered
[2022-03-01 08:39] LABS: Hematocrit 24.2 % (42.0-52.0); Hemoglobin 7.9 g/dl (14.0-18.0); Mean Corpuscular HGB Conc 32.6 g/dl (31.0-36.0); Mean Corpuscular Hemoglobin 29.3 pg (27.0-33.0); Mean Corpuscular Volume 89.6 fL (80.0-98.0); Mean Platelet Volume 9.3 fL (9.4-12.4); Platelet Count 683 X10*3/uL (160-400); Red Cell Distribution Width 15.4 % (11.0-16.0)
[2022-03-01 08:48] LABS: Anion Gap 12 (12-20); Blood Urea Nitrogen 6 mg/dL (9-16); Calcium 7.7 mg/dL (8.4-10.2); Carbon Dioxide 31 mmol/L (22-29); Chloride 95 mmol/L (96-108); Creatinine Clr Calc Pharmacy 213.2; Estimated Glomerular Filt Rate > 60; Glucose Random 88 mg/dL (60-115); Potassium 3.8 mmol/L (3.3-5.1); Sodium 134 mmol/L (135-145)
[2022-03-01] MEDS: polyethylene glycoL 3350 17 GM POWD.PACK PO (10:02)
[2022-03-01] MEDS: methADONE HCl 20 MG/2 ML ORAL.CONC 30 MG PO (10:02)
[2022-03-01] MEDS: Ferrous Sulfate 300 MG/5 ML LIQUID PO ×2 (10:03→16:22)
[2022-03-01] MEDS: Thiamine HCL 100 MG TABLET PO (10:03)
[2022-03-01] MEDS: Folic Acid 1 MG TABLET PO (10:03)
[2022-03-01] MEDS: Loratadine 10 MG TABLET PO (10:03)
[2022-03-01] MEDS: vancomycin HCL 1,250 MG in 0.9 % Sodium Chloride 250 ML 166.67 MG IV (16:22)
[2022-03-01] MEDS: Albuterol/Iprat 2.5/0.5MG 3 ML AMPUL.NEB INHALE (19:41)
[2022-03-01] MEDS: Multivitamin TABLET 1 TAB PO (20:42)
[2022-03-02] VITALS (9 sets, daily range): BP systolic 112–137; BP diastolic 56–75; PULSE 66–121; RESP 18–20; TEMP 36.4–37.7; O2SAT 94–97
[2022-03-02] MEDS: 0.9 % Sodium Chloride Flush 3 ML SYRINGE IVFLUSH ×4 (00:21→19:23)
[2022-03-02] MEDS: vancomycin HCL 1,250 MG in 0.9 % Sodium Chloride 250 ML 166.67 MG IV ×4 (00:21→23:45)
[2022-03-02] MEDS: Piperacillin Sodium/Tazobactam 4.5 GM in 0.9 % Sodium Chloride 100 ML IV ×4 (02:17→19:23)
[2022-03-02] MEDS: guaiFENesin 100 MG/5 ML LIQUID PO ×4 (02:18→19:23)
[2022-03-02] MEDS: Omeprazole 20 MG CAPSULE.DR PO (05:59)
[2022-03-02 06:51] LABS: Hematocrit 24.4 % (42.0-52.0); Hemoglobin 7.9 g/dl (14.0-18.0)
[2022-03-02 07:14] LABS: Anion Gap 9 (12-20); Blood Urea Nitrogen 5 mg/dL (9-16); Calcium 8.1 mg/dL (8.4-10.2); Carbon Dioxide 32 mmol/L (22-29); Chloride 98 mmol/L (96-108); Creatinine Clr Calc Pharmacy 196.1; Estimated Glomerular Filt Rate > 60; Glucose Random 82 mg/dL (60-115); Sodium 135 mmol/L (135-145)
--- NOTE | 2022-03-02 08:17 | P.PNIM_ITS ---
Subjective Subjective Date of Service: 03/02/22 Interval History: sob , pneumonia Review of Systems Shortness of breath somewhat improving, has cough, no fever Denies any chest pain or abdominal pain or nausea or vomiting, appetite improvi ng Physical Exam Vital Signs: Vital Signs: Last Vital Signs Temp 98.2 F 03/02/22 04:00 Pulse 76 03/02/22 04:00 Resp 20 03/02/22 04:00 BP 137/75 03/02/22 04:00 Pulse Ox 96 03/02/22 04:00 BMI result Body Mass Index 24.0 Appearance: Alert.? Oriented X3.?sob?/cough cvs: rrr, [id number] res: cdiminshed breath sounds on right lung area lower more >upper lung ,rhonchii right side also,left lung is fair air entry. abd: no rebound or guarding ,nt, bs present. ext pulses present , no cyanosis . neuro: axo3 , nonfocal. Objective Data Active Medications Acetaminophen (Acetaminophen 325 Mg Tablet) 650 mg PO Q6H PRN PRN Reason: Fever Last Admin: 02/27/22 15:52 Dose: 650 mg Documented by: AMARIS Albuterol/Ipratropium (Albuterol/Iprat 2.5/0.5mg 3 Ml Ampul.Neb) 3 ml INHALE RQ4H WHILE AWAKE [facility] Last Admin: 03/02/22 08:13 Dose: Not Given Documented by: LINDA Non-Admin Reason: Patient Refused Ferrous Sulfate (Ferrous Sulfate 300 Mg/5 Ml Liquid) 300 mg PO BIDWM [facility] Last Admin: 03/01/22 16:22 Dose: 300 mg Documented by: REMY Folic Acid (Folic Acid 1 Mg Tablet) 1 mg PO DAILY [facility] Last Admin: 03/01/22 10:03 Dose: 1 mg Documented by: MOON Guaifenesin (Guaifenesin 100 Mg/5 Ml Liquid) 5 ml PO Q6H [facility] Last Admin: 03/02/22 02:18 Dose: 5 ml Documented by: OVI Heparin Sodium (Porcine) (Heparin Sodium,Porcine 5,000 Unit/Ml Vial) 5,000 unit SUBCUT Q12H [facility] Last Admin: 03/01/22 04:30 Dose: 5,000 unit Documented by: HO.DAHLAN Piperacillin Sod/Tazobactam (Sod 4.5 gm/ Sodium Chloride) 100 mls @ 200 mls/hr IV Q6H [facility] Last Infusion: 03/02/22 02:55 Dose: 0 mls/hr Documented by: OVI Vancomycin HCl 1,250 mg/ (Sodium Chloride) 250 mls @ 166.667 mls/hr IV Q8H [facility] Last Infusion: 03/02/22 02:07 Dose: 0 mls/hr Documented by: OVI Loratadine (Loratadine 10 Mg Tablet) 10 mg PO DAILY [facility] Last Admin: 03/01/22 10:03 Dose: 10 mg Documented by: MOON Methadone HCl (Methadone Hcl 20 Mg/2 Ml Oral.Conc) 30 mg PO DAILY [facility] Last Admin: 03/01/22 10:02 Dose: 30 mg Documented by: MOON Multivitamins/Vitamin C (Multivitamin Tablet) 1 tab PO BEDTIME [facility] Last Admin: 03/01/22 20:42 Dose: 1 tab Documented by: REMY Omeprazole (Omeprazole 20 Mg Capsule.Dr) 20 mg PO DAILY@0630 [facility] Last Admin: 03/02/22 05:59 Dose: 20 mg Documented by: OVI Pharmacy Consult (Consult Rx Perform Med Rec) 1 each MISCELLANE ONCE PRN PRN Reason: Consult order Pharmacy Consult (Consult Rx Vancomycin Dosing) 1 each MISCELLANE DAILY PRN PRN Reason: Consult order Polyethylene Glycol (Polyethylene Glycol 3350 17 Gm Powd.Pack) 17 gm PO DAILY [facility] Last Admin: 03/01/22 10:02 Dose: 17 gm Documented by: MOON Sodium Chloride (0.9 % Sodium Chloride Flush 3 Ml Syringe) 3 ml IVFLUSH QSHIFT [facility] Last Admin: 03/02/22 00:21 Dose: 3 ml Documented by: OVI Thiamine HCl (Thiamine Hcl 100 Mg Tablet) 100 mg PO DAILY [facility] Last Admin: 03/01/22 10:03 Dose: 100 mg Documented by: MOON Labs CBC & Chem 7: 03/02/22 06:36 03/02/22 06:36 Labs: Laboratory Results - last 24 hr 03/01/22 03/01/22 03/02/22 06:15 Unknown 06:36 MCV 89.6 MCH 29.3 MCHC 32.6 RDW 15.4 Plt Count 683 H MPV 9.3 L Absolute Nucleated RBC 0.000 Nucleated RBC % (auto) 0.0 Anion Gap 12 9 L Estim Creat Clear Calc 213.2 196.1 Estimated GFR > 60 > 60 Random Glucose 88 82 Calcium 7.7 L 8.1 L Assessment and Plan (1) Severe protein-calorie malnutrition: Status: Acute (2) Sepsis: Status: Acute (3) Necrotizing bronchopneumonia: Status: Acute (4) Acute dyspnea: Status: Acute Plan 51-year-old male history of gastritis, also drug use in the past on methadone came with sepsis /pneumonia. 1. Sepsis secondary to pneumonia(necrotizing pneumonia)-symptoms are from 6 weeks. Has tachycardia and tachypnea wbc improving elevated ferritn ,crp,esr , procalcitonin. cta -shows necrotizing pneumonia, no pulm embolism vanco : 11.8 ?hepatitis C, HIV nonreactive , blood culture [email or web address]@[id number] ?vancomycin? as per pharmacy and Zosyn . T spot, AFB x3and sputum culture pending. Pulmonary evaluation noted -continue IV antibiotics 02/28, discussed with ID and pulm: After IV antibiotics patient may need 4 weeks of p.o. antibiotics also. added? Ensure for on nutrition, also nutritions evaluation Patient on airborne isolation 2. Opioid use: Patient already on methadone Continue methadone. 3.hx of gastritis : continue? ppi 4.elevated pt/inr -as per the patient is not eating well from 6 weeks-so possible nutritional D-dimer elevated, will add fibrin origin to complete the workup for coagulopathy ldh normal s/p vitamin K yesterday-ptt/inr seems improving. 5. Mild elevation of LFTs chronic -possible related to etoh use. improved. 6. hyponatremia:possible low po intake ,seems dry continue gentle hydration 7 Hemoglobin hemoglobin to crit drop:normocytic? Anemia seems multifactorial- nutritional, sepsis, folate, iron are also low. h/h stable around 8 Iron panel-anemia seems normocytic -seems mixed iron ,also folate low fobt pending added? iron,folate moniter h/h may need Gi eval if h/h continue to trending down ? 8.? 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 h/h stable ,no gross bleed so far. Need for inpatient:? Sepsis secondary to necrotizing pneumonia Quality Stroke Does the patient have a stroke diagnosis?: No VTE Prior VTE?: No VTE Risk Level:: Medical - moderate - high VTE Device Contraindication: N/A - Device Ordered VTE Drug Contraindication: N/A - Med Ordered
[2022-03-02 08:57] LABS: Vancomycin Random 12.2 mcg/mL (15-20)
[2022-03-02 09:05] LABS: OBS Int Ctl Valid YES; OBS1 NEGATIVE (NEGATIVE)
--- NOTE | 2022-03-02 09:06 | HE.PHANOTE ---
Vancomycin Dosing Based on level of 12.2 this morning. Dose continued at 1250 q 8h. Next trough 03/03/2022 @ 0600
[2022-03-02] MEDS: Ferrous Sulfate 300 MG/5 ML LIQUID PO ×2 (09:27→17:38)
[2022-03-02] MEDS: Folic Acid 1 MG TABLET PO (09:27)
[2022-03-02] MEDS: Thiamine HCL 100 MG TABLET PO (09:27)
[2022-03-02] MEDS: methADONE HCl 20 MG/2 ML ORAL.CONC 30 MG PO (09:27)
[2022-03-02] MEDS: polyethylene glycoL 3350 17 GM POWD.PACK PO (09:27)
[2022-03-02] MEDS: Loratadine 10 MG TABLET PO (09:27)
[2022-03-02] MEDS: Albuterol/Iprat 2.5/0.5MG 3 ML AMPUL.NEB INHALE ×2 (11:38→16:08)
--- NOTE | 2022-03-02 11:58 | MHC.CLN ---
F/U PT IS SEVERELY MALNOURISHED SEE ALSO FULL CLINICAL NUTRITION ASSESSMENT DATED 02/27/22 PO INTAKE 100% X 6 MEALS DIET RX: REGULAR-APPROPRIATE PT RECEIVING 8OZ ENSURE TID PROVIDES 1050KCALS, 60G PROTEIN SUPPLEMENT PROVIDES 47% EST. KCALS NEEDS, 62% EST PROTEIN NEEDS CONTINUE TO MONITOR PO INTAKE CLOSELY
--- NOTE | 2022-03-02 14:14 | MHC.CM.PN ---
Per ROUNDS discussion, Patient is not yet medically cleared for dc (cultures pending). CM will continue to follow.
[2022-03-02] MEDS: Multivitamin TABLET 1 TAB PO (19:23)
[2022-03-03] MEDS: guaiFENesin 100 MG/5 ML LIQUID PO ×4 (02:08→21:35)
[2022-03-03] MEDS: Piperacillin Sodium/Tazobactam 4.5 GM in 0.9 % Sodium Chloride 100 ML IV ×4 (02:08→21:35)
[2022-03-03 04:00] VITALS: BP 126/80; PULSE 101; RESP 20; TEMP 37.1; O2SAT 94
[2022-03-03] MEDS: Omeprazole 20 MG CAPSULE.DR PO (05:42)
[2022-03-03 07:15] VITALS: BP 121/67; PULSE 96; RESP 17; TEMP 37.1; O2SAT 94
[2022-03-03 07:27] LABS: Hematocrit 26.4 % (42.0-52.0); Hemoglobin 8.4 g/dl (14.0-18.0); Mean Corpuscular HGB Conc 31.8 g/dl (31.0-36.0); Mean Corpuscular Hemoglobin 28.7 pg (27.0-33.0); Mean Corpuscular Volume 90.1 fL (80.0-98.0); Mean Platelet Volume 8.6 fL (9.4-12.4); Platelet Count 702 X10*3/uL (160-400); Red Blood Count 2.93 X10*6/uL (4.60-5.80); Red Cell Distribution Width 15.7 % (11.0-16.0); White Blood Count 12.5 X10*3/uL (4.8-10.8)
[2022-03-03 07:33] LABS: INTERNATIONAL NORM RATIO 1.2 (0.9-1.1); Prothrombin Time 13.5 SEC (9.9-13.0)
[2022-03-03 07:34] LABS: Anion Gap 13 (12-20); Blood Urea Nitrogen 5 mg/dL (9-16); Calcium 8.4 mg/dL (8.4-10.2); Carbon Dioxide 28 mmol/L (22-29); Chloride 100 mmol/L (96-108); Estimated Glomerular Filt Rate > 60; Glucose Random 85 mg/dL (60-115); Potassium 4.5 mmol/L (3.3-5.1); Sodium 136 mmol/L (135-145)
[2022-03-03 07:41] LABS: Vancomycin Random 16.2 mcg/mL (15-20)
--- NOTE | 2022-03-03 08:01 | HE.PHANOTE ---
VANCO DOSING Based off trough of 16.2 dose continued at 1250 q 8h. Next trough 03/04 @ 0600
[2022-03-03] MEDS: vancomycin HCL 1,250 MG in 0.9 % Sodium Chloride 250 ML 166.7 MG IV ×2 (09:43→14:30)
[2022-03-03] MEDS: methADONE HCl 20 MG/2 ML ORAL.CONC 30 MG PO (09:44)
[2022-03-03] MEDS: 0.9 % Sodium Chloride Flush 3 ML SYRINGE IVFLUSH ×3 (09:47→21:35)
[2022-03-03] MEDS: Loratadine 10 MG TABLET PO (09:48)
[2022-03-03] MEDS: Folic Acid 1 MG TABLET PO (09:48)
[2022-03-03] MEDS: polyethylene glycoL 3350 17 GM POWD.PACK PO (09:48)
[2022-03-03] MEDS: Thiamine HCL 100 MG TABLET PO (09:48)
[2022-03-03] MEDS: Ferrous Sulfate 300 MG/5 ML LIQUID PO ×2 (09:48→16:19)
[2022-03-03 11:18] VITALS: BP 117/72; PULSE 106; RESP 19; TEMP 36.9; O2SAT 94
--- NOTE | 2022-03-03 11:56 | P.PNIM_ITS ---
Subjective Subjective Date of Service: 03/04/22 Interval History: seen in follow-up for sepsis due to necrotizing multilobar pneumonia. Concern for TB interval history: no change, no sob Review of Systems Cough, no fever, shortness of breath Physical Exam Vital Signs: Vital Signs: Last Vital Signs Temp 98.4 F 03/03/22 11:18 Pulse 106 H 03/03/22 11:18 Resp 19 03/03/22 11:18 BP 117/72 03/03/22 11:18 Pulse Ox 94 03/03/22 11:18 BMI result Body Mass Index 24.0 Const: Other: Appearance: Alert.? Oriented X3.?sob?/cough cvs: rrr, [id number] res: cdiminshed breath sounds on right lung area lower more >upper lung ,rhonchii right side also,left lung is fair air entry. abd: no rebound or guarding ,nt, bs present. ext pulses present , no cyanosis . neuro: axo3 , nonfocal. Objective Data Active Medications Acetaminophen (Acetaminophen 325 Mg Tablet) 650 mg PO Q6H PRN PRN Reason: Fever Last Admin: 02/27/22 15:52 Dose: 650 mg Documented by: AMARIS Albuterol/Ipratropium (Albuterol/Iprat 2.5/0.5mg 3 Ml Ampul.Neb) 3 ml INHALE RQ4H WHILE AWAKE [facility] Last Admin: 03/03/22 11:46 Dose: Not Given Documented by: LINDA Non-Admin Reason: Patient Refused Ferrous Sulfate (Ferrous Sulfate 300 Mg/5 Ml Liquid) 300 mg PO BIDWM [facility] Last Admin: 03/03/22 09:48 Dose: 300 mg Documented by: JEFFERSON Folic Acid (Folic Acid 1 Mg Tablet) 1 mg PO DAILY [facility] Last Admin: 03/03/22 09:48 Dose: 1 mg Documented by: JEFFERSON Guaifenesin (Guaifenesin 100 Mg/5 Ml Liquid) 5 ml PO Q6H [facility] Last Admin: 03/03/22 09:48 Dose: 5 ml Documented by: JEFFERSON Heparin Sodium (Porcine) (Heparin Sodium,Porcine 5,000 Unit/Ml Vial) 5,000 unit SUBCUT Q12H [facility] Last Admin: 03/01/22 04:30 Dose: 5,000 unit Documented by: HO.DAHLAN Piperacillin Sod/Tazobactam (Sod 4.5 gm/ Sodium Chloride) 100 mls @ 200 mls/hr IV Q6H [facility] Last Infusion: 03/03/22 11:11 Dose: 0 mls/hr Documented by: JEFFERSON Vancomycin HCl 1,250 mg/ (Sodium Chloride) 250 mls @ 166.667 mls/hr IV Q8H [facility] Last Admin: 03/03/22 09:43 Dose: 166.7 mls/hr Documented by: JEFFERSON Loratadine (Loratadine 10 Mg Tablet) 10 mg PO DAILY [facility] Last Admin: 03/03/22 09:48 Dose: 10 mg Documented by: JEFFERSON Methadone HCl (Methadone Hcl 20 Mg/2 Ml Oral.Conc) 30 mg PO DAILY [facility] Last Admin: 03/03/22 09:44 Dose: 30 mg Documented by: JEFFERSON Multivitamins/Vitamin C (Multivitamin Tablet) 1 tab PO BEDTIME [facility] Last Admin: 03/02/22 19:23 Dose: 1 tab Documented by: LUDIN Omeprazole (Omeprazole 20 Mg Capsule.Dr) 20 mg PO DAILY@0630 [facility] Last Admin: 03/03/22 05:42 Dose: 20 mg Documented by: LUDIN Pharmacy Consult (Consult Rx Perform Med Rec) 1 each MISCELLANE ONCE PRN PRN Reason: Consult order Pharmacy Consult (Consult Rx Vancomycin Dosing) 1 each MISCELLANE DAILY PRN PRN Reason: Consult order Polyethylene Glycol (Polyethylene Glycol 3350 17 Gm Powd.Pack) 17 gm PO DAILY [facility] Last Admin: 03/03/22 09:48 Dose: 17 gm Documented by: JEFFERSON Sodium Chloride (0.9 % Sodium Chloride Flush 3 Ml Syringe) 3 ml IVFLUSH QSHIFT [facility] Last Admin: 03/03/22 09:47 Dose: 3 ml Documented by: JEFFERSON Thiamine HCl (Thiamine Hcl 100 Mg Tablet) 100 mg PO DAILY [facility] Last Admin: 03/03/22 09:48 Dose: 100 mg Documented by: JEFFERSON Labs CBC & Chem 7: 03/04/22 08:21 03/04/22 08:21 Labs: Laboratory Results - last 24 hr 03/03/22 03/03/22 03/03/22 07:10 07:10 07:10 MCV 90.1 MCH 28.7 MCHC 31.8 RDW 15.7 Plt Count 702 H MPV 8.6 L Absolute Nucleated RBC 0.000 Nucleated RBC % (auto) 0.0 PT 13.5 H INR 1.2 H Anion Gap 13 Estim Creat Clear Calc 185.0 Estimated GFR > 60 Random Glucose 85 Calcium 8.4 Random Vancomycin 03/03/22 07:10 MCV MCH MCHC RDW Plt Count MPV Absolute Nucleated RBC Nucleated RBC % (auto) PT INR Anion Gap Estim Creat Clear Calc Estimated GFR Random Glucose Calcium Random Vancomycin 16.2 Microbiology Microbiology Results: Microbiology 02/25/22 14:23 Blood Culture - Final Blood - Venous No growth after 5 days. 02/25/22 14:27 Blood Culture - Final Blood - Venous No growth after 5 days. Assessment and Plan (1) Severe protein-calorie malnutrition: Status: Acute (2) Sepsis: Status: Acute (3) Necrotizing bronchopneumonia: Status: Acute (4) Acute dyspnea: Status: Acute Plan 51-year-old male history of gastritis, also drug use in the past on methadone came with sepsis /pneumonia. 1. Sepsis secondary to pneumonia(necrotizing pneumonia)-symptoms since 6 weeks. TB being ruled out with AFB, and Tspo continue coverge for PNA with Vanco and Zosy, repeat CT chest of improving then unlikely TB. Continue Isoloation, pulmonology following, 2. Opioid use desorder--continue Methadone 3.hx of gastritis : continue? ppi 4.elevated pt/inr -as per the patient is not eating well from 6 weeks-so possible nutritional D-dimer elevated, will add fibrin origin to complete the workup for coagulopathy ldh normal s/p vitamin K -ptt/inr seems improving. 5. Mild elevation of LFTs chronic -possible related to etoh use. improved. 6. hyponatremia:possible low po intake ,seems dry--Na is now normal continue gentle hydration-- 7 Hemoglobin hemoglobin to crit drop:normocytic? Anemia seems multifactorial-nutritional, sepsis, folate, iron are also and anemia of chronic disease h/h stable around 8 Iron panel-anemia seems normocytic -seems mixed iron ,also folate low fobt pending continue iron,folate moniter h/h may need Gi eval if h/h continue to trending down ? 8.? 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 h/h stable ,no gross bleed so far. Need for inpatient:? Sepsis secondary to necrotizing pneumonia requiring IV Abx and need for TB isolation at this time Quality Stroke Does the patient have a stroke diagnosis?: No VTE Prior VTE?: No VTE Risk Level:: Medical - moderate - high VTE Device Contraindication: N/A - Device Ordered VTE Drug Contraindication: N/A - Med Ordered
[2022-03-03 15:57] VITALS: BP 108/62; PULSE 95; RESP 17; TEMP 37; O2SAT 94
[2022-03-03 19:51] VITALS: BP 142/81; PULSE 106; RESP 16; TEMP 37; O2SAT 97
[2022-03-03] MEDS: Multivitamin TABLET 1 TAB PO (21:35)
[2022-03-03 23:39] VITALS: BP 110/64; PULSE 99; RESP 16; TEMP 36.5; O2SAT 94
[2022-03-03] MEDS: vancomycin HCL 1,250 MG in 0.9 % Sodium Chloride 250 ML 166.67 MG IV (23:54)
[2022-03-04] MEDS: guaiFENesin 100 MG/5 ML LIQUID PO ×4 (01:44→19:51)
[2022-03-04] MEDS: Piperacillin Sodium/Tazobactam 4.5 GM in 0.9 % Sodium Chloride 100 ML IV ×4 (01:44→19:51)
[2022-03-04 03:35] VITALS: BP 124/70; PULSE 95; RESP 17; TEMP 36.8; O2SAT 94
[2022-03-04] MEDS: Omeprazole 20 MG CAPSULE.DR PO (06:34)
[2022-03-04 07:01] LABS: Vancomycin Trough 17.6 mcg/mL (10.0-20.0)
[2022-03-04 07:14] VITALS: BP 118/71; PULSE 104; RESP 19; TEMP 36.7; O2SAT 94
--- NOTE | 2022-03-04 07:47 | PHA.PROG ---
Admission Date/Time: February 25, 2022 17:51 Indication: RESPIRATORY Weight in k.6 kg Adjusted body weight in Kg: [place] body weight in Kg: Obesity Dosing Indication % IBW: Serum Creatinine - Last 168 Hours 02/25/22 02/26/22 02/27/22 14:25 06:59 03:57 Creatinine 0.66 0.53 0.50 02/28/22 03/01/22 03/02/22 05:53 Unknown 06:36 Creatinine 0.46 L 0.46 L 0.50 03/03/22 07:10 Creatinine 0.53 Estimated CrCl and GFR - Last 168 Hours 02/25/22 02/26/22 02/27/22 14:25 06:59 03:57 Estim Creat Clear Calc 148.6 185.0 196.1 Estimated GFR > 60 > 60 > 60 02/28/22 03/01/22 03/02/22 05:53 Unknown 06:36 Estim Creat Clear Calc 213.2 213.2 196.1 Estimated GFR > 60 > 60 > 60 03/03/22 07:10 Estim Creat Clear Calc 185.0 Estimated GFR > 60 Vancomycin Loading Dose: Current Vancomycin Dosing Regimen: Vancomycin Monitoring using AUC goal of 400 - 600 range with trough as surrogate marker: Trough came back at 17.6 when the predicted steady state trough is 12.4. I will decrease the regimen to 1000 mg q8h and get another trough on 03/05 @ 0600. If the trough drops too low we can change the regimen back. Continue to monitor renal function. Date and Time for next Vancomycin Level to be drawn: 03/05 @ 0600 Vancomycin Trough 17.6 mcg/mL (10.0-20.0) 03/04/22 06:31 Pharmacist Comments on Vancomycin Plan: Vancomycin dosing will take advantage of [employer] as a clinical decision support tool that uses Bayesian modeling to calculate individual patient's pharmacokinetic parameters and forecast the patient's drug concentration time course with the target goal AUC 24 range of 400 - 600 mg/L/hr.
[2022-03-04 08:29] LABS: Hematocrit 27.4 % (42.0-52.0); Hemoglobin 8.7 g/dl (14.0-18.0); Mean Corpuscular HGB Conc 31.8 g/dl (31.0-36.0); Mean Corpuscular Hemoglobin 28.8 pg (27.0-33.0); Mean Corpuscular Volume 90.7 fL (80.0-98.0); Mean Platelet Volume 8.4 fL (9.4-12.4); Platelet Count 776 X10*3/uL (160-400); Red Blood Count 3.02 X10*6/uL (4.60-5.80); Red Cell Distribution Width 15.9 % (11.0-16.0)
[2022-03-04 08:44] LABS: Creatinine Clr Calc Pharmacy 188.6; Estimated Glomerular Filt Rate > 60
[2022-03-04] MEDS: Loratadine 10 MG TABLET PO (09:25)
[2022-03-04] MEDS: vancomycin HCL 1,000 MG in 0.9 % Sodium Chloride 250 ML 270 MG IV ×2 (09:25→15:51)
[2022-03-04] MEDS: Ferrous Sulfate 300 MG/5 ML LIQUID PO ×2 (09:25→15:51)
[2022-03-04] MEDS: Thiamine HCL 100 MG TABLET PO (09:25)
[2022-03-04] MEDS: Folic Acid 1 MG TABLET PO (09:25)
[2022-03-04] MEDS: polyethylene glycoL 3350 17 GM POWD.PACK PO (09:26)
[2022-03-04] MEDS: 0.9 % Sodium Chloride Flush 3 ML SYRINGE IVFLUSH ×3 (09:26→19:51)
[2022-03-04] MEDS: methADONE HCl 20 MG/2 ML ORAL.CONC 30 MG PO (09:26)
[2022-03-04 11:28] VITALS: BP 109/67; PULSE 92; RESP 16; TEMP 36.9; O2SAT 95
--- NOTE | 2022-03-04 12:58 | MHC.CLN ---
F/U PT IS SEVERELY MALNOURISHED SEE FULL CLINICAL NUTRITION ASSESSMENT DATED 02/27/22 PO INTAKE REMAINS EXCELLENT DIET RX: REGULAR-APPROPRIATE PT RECEIVING 8OZ ENSURE TID PROVIDES 1050KCALS, 60G PROTEIN SUPPLEMENT PROVIDES 47% EST. KCALS NEEDS, 62% EST PROTEIN NEEDS CONTINUE TO MONITOR PO INTAKE CLOSELY AND ADD WEEKLY WEIGHTS
--- NOTE | 2022-03-04 13:45 | MHC.CM.PN ---
Male 51 DX PNA Results of TB tests pending, no dc today. DP STR pending PT eval. Referrals have been sent. Joby Ramirez is reviewing clinical info.
[2022-03-04 15:02] VITALS: BP 104/66; PULSE 93; RESP 19; TEMP 37.1; O2SAT 95
--- NOTE | 2022-03-04 18:41 | HO.PM.IMPN ---
Subjective Subjective Date of Service: 03/04/22 Interval History: seen in follow-up for sepsis due to necrotizing multilobar pneumonia. Concern for TB interval history: no sob, no cough, no night sweat Review of Systems Cough, no fever, shortness of breath Physical Exam Vital Signs: Vital Signs: Last Vital Signs Temp 98.8 F 03/04/22 15:02 Pulse 93 03/04/22 15:02 Resp 19 03/04/22 15:02 BP 104/66 03/04/22 15:02 Pulse Ox 95 03/04/22 15:02 BMI result Body Mass Index 24.0 Const: Other: Appearance: Alert.? Oriented X3.?sob?/cough cvs: rrr, [id number] res: cdiminshed breath sounds on right lung area lower more >upper lung ,rhonchii right side also,left lung is fair air entry. abd: no rebound or guarding ,nt, bs present. ext pulses present , no cyanosis . neuro: axo3 , nonfocal. Objective Data Active Medications Acetaminophen (Acetaminophen 325 Mg Tablet) 650 mg PO Q6H PRN PRN Reason: Fever Last Admin: 02/27/22 15:52 Dose: 650 mg Documented by: AMARIS Albuterol/Ipratropium (Albuterol/Iprat 2.5/0.5mg 3 Ml Ampul.Neb) 3 ml INHALE RQ4H WHILE AWAKE [facility] Last Admin: 03/04/22 15:55 Dose: Not Given Documented by: NASEEM Non-Admin Reason: Patient Refused Ferrous Sulfate (Ferrous Sulfate 300 Mg/5 Ml Liquid) 300 mg PO BIDWM [facility] Last Admin: 03/04/22 15:51 Dose: 300 mg Documented by: GREGORIO Folic Acid (Folic Acid 1 Mg Tablet) 1 mg PO DAILY [facility] Last Admin: 03/04/22 09:25 Dose: 1 mg Documented by: GREGORIO Guaifenesin (Guaifenesin 100 Mg/5 Ml Liquid) 5 ml PO Q6H [facility] Last Admin: 03/04/22 13:40 Dose: 5 ml Documented by: GREGORIO Heparin Sodium (Porcine) (Heparin Sodium,Porcine 5,000 Unit/Ml Vial) 5,000 unit SUBCUT Q12H [facility] Last Admin: 03/01/22 04:30 Dose: 5,000 unit Documented by: SERAFIN Piperacillin Sod/Tazobactam (Sod 4.5 gm/ Sodium Chloride) 100 mls @ 200 mls/hr IV Q6H [facility] Last Infusion: 03/04/22 14:24 Dose: 0 mls/hr Documented by: GREGORIO Vancomycin HCl 1,000 mg/ (Sodium Chloride) 270 mls @ 270 mls/hr IV Q8H [facility] Last Infusion: 03/04/22 17:09 Dose: 0 mls/hr Documented by: GREGORIO Loratadine (Loratadine 10 Mg Tablet) 10 mg PO DAILY [facility] Last Admin: 03/04/22 09:25 Dose: 10 mg Documented by: GREGORIO Methadone HCl (Methadone Hcl 20 Mg/2 Ml Oral.Conc) 30 mg PO DAILY [facility] Last Admin: 03/04/22 09:26 Dose: 30 mg Documented by: GREGORIO Multivitamins/Vitamin C (Multivitamin Tablet) 1 tab PO BEDTIME [facility] Last Admin: 03/03/22 21:35 Dose: 1 tab Documented by: ABEL Omeprazole (Omeprazole 20 Mg Capsule.Dr) 20 mg PO DAILY@0630 [facility] Last Admin: 03/04/22 06:34 Dose: 20 mg Documented by: ABEL Pharmacy Consult (Consult Rx Perform Med Rec) 1 each MISCELLANE ONCE PRN PRN Reason: Consult order Polyethylene Glycol (Polyethylene Glycol 3350 17 Gm Powd.Pack) 17 gm PO DAILY [facility] Last Admin: 03/04/22 09:26 Dose: 17 gm Documented by: GREGORIO Sodium Chloride (0.9 % Sodium Chloride Flush 3 Ml Syringe) 3 ml IVFLUSH QSHIFT [facility] Last Admin: 03/04/22 15:52 Dose: 3 ml Documented by: GREGORIO Thiamine HCl (Thiamine Hcl 100 Mg Tablet) 100 mg PO DAILY [facility] Last Admin: 03/04/22 09:25 Dose: 100 mg Documented by: GREGORIO Labs CBC & Chem 7: 03/04/22 08:21 03/04/22 08:21 Labs: Laboratory Results - last 24 hr 03/04/22 03/04/22 03/04/22 06:31 08:21 08:21 MCV 90.7 MCH 28.8 MCHC 31.8 RDW 15.9 Plt Count 776 H MPV 8.4 L Absolute Nucleated RBC 0.000 Nucleated RBC % (auto) 0.0 Estim Creat Clear Calc Estimated GFR Vancomycin Trough 17.6 Blood Type O Positive Antibody Screen NEGATIVE 03/04/22 08:21 MCV MCH MCHC RDW Plt Count MPV Absolute Nucleated RBC Nucleated RBC % (auto) Estim Creat Clear Calc 188.6 Estimated GFR > 60 Vancomycin Trough Blood Type Antibody Screen Microbiology Microbiology Results: Microbiology 02/25/22 17:00 Direct Acid Fast Bacilli Smear - Final Sputum - Expectorated Assessment and Plan (1) Severe protein-calorie malnutrition: Status: Acute (2) Sepsis: Status: Acute (3) Necrotizing bronchopneumonia: Status: Acute (4) Acute dyspnea: Status: Acute Plan 51-year-old male history of gastritis, also drug use in the past on methadone came with sepsis /pneumonia. 1. Sepsis secondary to pneumonia(necrotizing pneumonia)-symptoms since 6 weeks. TB being ruled out with AFB, and Tspo--so far negative Tspot and 1 AFB negative continue coverge for PNA with Vanco and Zosy, repeat CT chest of improving then unlikely TB. Continue Isoloation, pulmonology following, 2. Opioid use desorder--continue Methadone 3.hx of gastritis : continue? ppi 4.elevated pt/inr -as per the patient is not eating well from 6 weeks-so possible nutritional D-dimer elevated, will add fibrin origin to complete the workup for coagulopathy ldh normal s/p vitamin K -ptt/inr seems improving. 5. Mild elevation of LFTs chronic -possible related to etoh use. improved. 6. hyponatremia:possible low po intake ,seems dry--Na is now normal continue gentle hydration-- 7 Hemoglobin hemoglobin to crit drop:normocytic? Anemia seems multifactorial-nutritional, sepsis, folate, iron are also and anemia of chronic disease h/h stable around 8 Iron panel-anemia seems normocytic -seems mixed iron ,also folate low fobt pending continue iron,folate moniter h/h may need Gi eval if h/h continue to trending down ? 8.? 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 h/h stable ,no gross bleed so far. Need for inpatient:? Sepsis secondary to necrotizing pneumonia requiring IV Abx and need for TB isolation and rule out with AFB Quality Stroke Does the patient have a stroke diagnosis?: No VTE Prior VTE?: No VTE Risk Level:: Medical - moderate - high VTE Device Contraindication: N/A - Device Ordered VTE Drug Contraindication: N/A - Med Ordered
[2022-03-04] MEDS: Multivitamin TABLET 1 TAB PO (19:51)
[2022-03-04 20:00] VITALS: BP 114/60; PULSE 93; RESP 20; TEMP 36.9; O2SAT 95
[2022-03-04] MEDS: vancomycin HCL 1,000 MG in 0.9 % Sodium Chloride 250 ML 250 MG IV (23:44)
[2022-03-05] VITALS: BP 117/62; PULSE 99; RESP 18; TEMP 36.6; O2SAT 93
[2022-03-05] MEDS: guaiFENesin 100 MG/5 ML LIQUID PO ×2 (01:54→09:42)
[2022-03-05] MEDS: Piperacillin Sodium/Tazobactam 4.5 GM in 0.9 % Sodium Chloride 100 ML IV (01:54)
[2022-03-05 02:56] VITALS: BP 111/64; PULSE 95; RESP 18; TEMP 36.9; O2SAT 94
[2022-03-05] MEDS: Omeprazole 20 MG CAPSULE.DR PO (05:39)
[2022-03-05 06:51] LABS: Vancomycin Trough 14.5 mcg/mL (10.0-20.0)
[2022-03-05 07:54] VITALS: BP 109/75; PULSE 103; RESP 20; TEMP 36.9; O2SAT 95
[2022-03-05 08:29] LABS: Creatinine Clr Calc Pharmacy 178.3; Estimated Glomerular Filt Rate > 60
[2022-03-05] MEDS: Thiamine HCL 100 MG TABLET PO (09:41)
[2022-03-05] MEDS: Folic Acid 1 MG TABLET PO (09:41)
[2022-03-05] MEDS: methADONE HCl 20 MG/2 ML ORAL.CONC 30 MG PO (09:41)
[2022-03-05] MEDS: Loratadine 10 MG TABLET PO (09:41)
[2022-03-05] MEDS: 0.9 % Sodium Chloride Flush 3 ML SYRINGE IVFLUSH (09:43)
--- NOTE | 2022-03-05 10:33 | P.DS_ITS ---
DS: Providers Provider Date of Service: 03/05/22 Date of admission: 02/25/22 17:51 Primary care physician: None Physician Consults: 02/25/22 17:03 Consult to Infectious Diseases Routine Consulting Provider: Jacinda Cristina Reason for consultation: sepsis sec to pneumonia Has provider been notified: No Consult to Pulmonology Routine Consulting Provider: Ayush Daily Reason for consultation: sepsis /pneumonia Has provider been notified: No 03/02/22 11:23 Consult to Psychiatry Routine Consulting Provider: Psych Covering Reason for consultation: opoid use -on subaxone Has provider been notified: Yes DS: Diagnosis Discharge Diagnosis (1) Severe protein-calorie malnutrition: Status: Acute (2) Sepsis: Status: Resolved (3) Necrotizing bronchopneumonia: Status: Acute (4) Acute dyspnea: Status: Resolved DS: Summary Hospital Course Hospital Course: Chief Complaint: Sepsis/cavitary pneumonia. 51-year-old male history of gastritis, also drug use in the past on methadone, also he recently quit alcohol 4-6 week ago, was in the [facility] 6 years ago, denies living in homeless shelters. Patient came to the hospital because of 6 week history of shortness of breath, cough pain with breathing inspiration, fever night sweats, loss of appetite and weight loss 30-40 lb as per patient. Also complaining of generalized weakness.? Has nausea He says he is generally weak from 6 months and due to shortness of breath and above symptoms has limited functionally active from 6 month. Patient says that he quit IV did drug use 2 years ago,he did snort about 2 months ago. Patient having seen a doctor at least 2-3 years. lives with friends:Miss Pickens: [phone] Denies vomiting or abdominal pain or blurry vision or weakness or numbness Has foamy sputum every day in the morning. Denies any recent travel or sick contacts. Lab imaging reviewed: WBC count 31.3, tachypneic Mild hyponatremia 129 Elevated ferritin, C-reactive protein, as ESR Lactic acid 2.4, mild elevated LFT chronically. PTand INR also elevated ddimer elevated CTA shows no PE, possible necrotizing multilobar pneumonia. EKG shows sinus tachycardia Hospital course: Patient was admitted for pneumonia treatement and given cavitary nature lung lesions he was put on TB islation and AFB sputms obatained and so far 1/3 negative AFB, Tspot is negative, He does not have night sweat. He has been treated for presumed bacterial pneumonia with Vancomycin and Zosyn since admission. He has been evaluated by Pulmonology and Infectious disease and at this point ID recommends oral antibiotics with Doxycycline and Augmentin for 2 weeks which is in line with pulmonology recommendation. He presently has no fever or chills and no night sweat Time Spent with Patient Time attestation: Total time spent providing and/or coordinating discharge services: Discharge coordination time: Greater than 30 minutes Quality: Safe Use of Opioids Does Pt have an Active Cancer Diagnosis on the Problem List?: No Quality: Stroke Does the patient have a stroke diagnosis?: No Physical Exam Vital Signs: Vital Signs: Last Vital Signs Temp 98.5 F 03/05/22 07:54 Pulse 103 H 03/05/22 07:54 Resp 20 03/05/22 07:54 BP 109/75 03/05/22 07:54 Pulse Ox 95 03/05/22 07:54 BMI result Body Mass Index 24.0 DS: Data Data Completed and Pending Labs on day of discharge: Laboratory Results - last 24 hr 03/05/22 03/05/22 06:19 06:19 Creatinine 0.55 Estim Creat Clear Calc 178.3 Estimated GFR > 60 Vancomycin Trough 14.5 Discharge Plan Discharge Anticipated Discharge Date/Time: 03/05/22 10:41 Patient Disposition: Home, Self-Care Discharge Diagnosis: Cavitary pneumonia Referrals: Physician,None [Primary Care Provider] - 1 Week Discharge Medications: Continued methadone 10 mg/mL Concentrate 30 mg PO DAILY Discharge Orders: Discharge Order (Routine); Ordered 03/05/22 Ordered By: Perez Cody Activity on Discharge: As tolerated Stand Alone Forms: Patient Portal Discharge page Care Plan Goals: Cavitary pneumonia resolution Health Concerns: Cavitary pneumonia Plan of Treatment: It is imperative that you take your medications as recommended and follow up with your primary doctor in a week, also follow up with Dr. Daily in the lung clinic within 2 weeks Assessment: as above Discharge Date/Time: 03/05/22 14:11
[2022-03-05 11:01] VITALS: BP 119/70; PULSE 95; RESP 20; TEMP 36.5; O2SAT 95
[2022-03-05] MEDS: Amoxicillin/Potassium Clav 875 MG TABLET PO (11:28)
--- NOTE | 2022-03-05 11:48 | MHC.CM.PN ---
Male 51 DX PNA is discharged to home today. The [facility] will provide transportation home. A voucher has been provided. The Nurse will have him in the front loby for 2pm pick[employer].
== END 2022-03-05 14:11 | disposition home or self-care (01) | DRG 720 ==
LOC: HO.ED 16:34 → HO.EDOVER 18:03 → HO.IMC 02-26 15:23
PROVIDERS: Emergency Medicine; Internal Medicine; Physician Assistant Medical; Student in an Organized Health Care Education/Training Program; Admitting Provider Internal Medicine; Emergency Provider Emergency Medicine; Visit Provider Internal Medicine
DX: A41.9 Sepsis, unspecified organism (principal); J85.1 Abscess of lung with pneumonia; E87.2 Acidosis; E43 Unspecified severe protein-calorie malnutrition; Z68.24 Body mass index [BMI] 24.0-24.9, adult; E87.1 Hypo-osmolality and hyponatremia; F11.20 Opioid dependence, uncomplicated; Z20.822 Contact with and (suspected) exposure to COVID-19; D72.829 Elevated white blood cell count, unspecified; Z87.891 Personal history of nicotine dependence; Z88.0 Allergy status to penicillin
CPT/HCPCS: 36415; 71046; 71250; 71275; 80048; 80076; 80202; 80307; 82272; 82550; 82565; 82607; 82728; 82746; 83540; 83605; 83615; 83735; 84145; 84484; 85014; 85018; 85025; 85027; 85379; 85384; 85610; 85652; 85730; 86140; 86481; 86803; 86850; 86900; 86901; 87040; 87070; 87116; 87205; 87389; 87502; 87635; 93005; 94640; 96361; 96365; 96367; 96375; 99285; 99291; J1956; J2543; J3370; Q9967

== ENCOUNTER → 2022-04-07 14:11 | Outpatient (BNVA) | payer MEDICAID, SELFPAY | PROVIDERS: Visit Provider Hospitalist | DX: J98.4 Other disorders of lung (principal); J85.0 Gangrene and necrosis of lung; A31.0 Pulmonary mycobacterial infection; F17.200 Nicotine dependence, unspecified, uncomplicated; Z71.6 Tobacco abuse counseling | CPT/HCPCS: 99212 ==

== ENCOUNTER 2022-04-16 06:19 | Day surgery (SDC) | payer MEDICAID, SELFPAY ==
[2022-04-08 15:59] VITALS: BMI 25.7
--- NOTE | 2022-04-15 10:06 | HO.ANESPROP2 ---
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 Active Problems Active Problems: All Active Problems (Updated 04/08/22 @ 15:58 by Belem Lee RN) CRP elevated (Acute) Cavitating mass of lung (Acute) Necrotizing bronchopneumonia (Acute) Severe protein-calorie malnutrition (Acute) Nontuberculous mycobacterial disease of lung (Acute) Past Medical History Medical History COVID-19 vaccination declined Gastritis Hx of drug dependence Methadone dependence Pneumonia Smoker Ulcerative esophagitis Surgical History Surgical History Hx of endoscopic retrograde cholangiopancreatography Social History Social History (Updated 04/07/22 @ 14:36 by FABI Dotson) Household Members: Other Household Members Other:: lives with friends Housing: House Do you presently have visiting nurse or other home services: No Alcohol intake: current Alcohol intake frequency: former alcohol drinker Patient Tobacco Use Status: Current everyday Tobacco user Tobacco use type: Cigarette Cigarette Packs Per Day: 1 Cigarettes Per Day: 6 Years Smoked: 32 e-Cigarette/Vaping Use: Never Used Second Hand Smoke Exposure: No Substance Use Type: Former Substance User and Opiates service: No Current occupational status: unemployed Meds Allergies Allergy/AdvReac Type Severity Reaction Status Date / Time morphine [MORPHINE] Allergy Unknown NAUSEA & Verified 04/07/22 14:35 VOMITING, ABD PAIN Home Medications Medication Instructions Recorded Confirmed Last Taken Type methadone 10 mg/mL oral concentrate 30 mg PO DAILY 02/25/22 04/08/22 04/16/22 History Exam Exam Date and Time: April 15, 2022 1006 Height,Weight and Vital Signs: Height 6 ft Weight 86.183 kg Pertinent Lab Results Pertinent Lab Results: Laboratory Tests 03/03/22 03/04/22 03/05/22 07:10 08:21 06:19 WBC 14.0 H Hgb 8.7 L Hct 27.4 L Plt Count 776 H Sodium 136 Potassium 4.5 Chloride 100 Carbon Dioxide 28 BUN 5 L Creatinine 0.55 Narrative Narrative: EKG 02/2022 Vent. Rate : 132 BPM ? ? Atrial Rate : 132 BPM ?? P-R Int : 140 ms? QRS Dur : 074 ms ? ? QT Int : 282 ms ? ? ? P-R-T Axes : 067 055 059 degrees ?? QTc Int : 417 ms ? Poor data quality, interpretation may be adversely affected Sinus tachycardia Otherwise normal ECG When compared with ECG of 23-JUL-2019 19:37, No significant change was found Assessment and Plan Assessment Anesthesia Assessment: Chart Reviewed Documented by User: Miquel Rushing MD 04/16/22 16:59 HPI - Anesthesia Eval Consult details Narrative: 51yo M for Bronchoscopy Fiberoptic Polysub abuse - methadone daily pluritic chest pain , right LE numbness PMFSH Past Medical History Medical History COVID-19 vaccination declined Gastritis Hx of drug dependence Methadone dependence Pneumonia Smoker Ulcerative esophagitis Family History Family history of problems with anesthesia: No Surgical History Surgical History Hx of endoscopic retrograde cholangiopancreatography History of Problems with Anesthesia: No Social History Social History (Updated 04/07/22 @ 14:36 by FABI Dotson) Household Members: Other Household Members Other:: lives with friends Housing: House Do you presently have visiting nurse or other home services: No Alcohol intake: current Alcohol intake frequency: former alcohol drinker Patient Tobacco Use Status: Current everyday Tobacco user Tobacco use type: Cigarette Cigarette Packs Per Day: 1 Cigarettes Per Day: 6 Years Smoked: 32 e-Cigarette/Vaping Use: Never Used Second Hand Smoke Exposure: No Substance Use Type: Former Substance User and Opiates service: No Current occupational status: unemployed Meds Allergies Allergy/AdvReac Type Severity Reaction Status Date / Time morphine [MORPHINE] Allergy Unknown NAUSEA & Verified 04/07/22 14:35 VOMITING, ABD PAIN Home Medications Medication Instructions Recorded Confirmed Last Taken Type methadone 10 mg/mL oral concentrate 30 mg PO DAILY 02/25/22 04/08/22 04/16/22 History Exam Airway Mallampati Class: III TM Dist: >3cm Neck ROM: Full Loose/Missing/Broken Teeth: Yes (Poor dentition , multiple chipped . ) Heart: S1,S2 Lungs: b/l breath sounds Assessment and Plan Assessment Anesthesia Assessment: Anesthesia Plan Discussed Final Anesthetic Review Family History of Problems with Anesthesia: No History of Problems with Anesthesia: No NPO: Yes ASA Class: III Final Preanesthetic Review: Meds/Allgs Chart Reviewed, Consent Obtained/Reviewed and Anes Risks/Benef Reviewed Patient Risk: Intermediate Procedure Risk: Intermediate Anesthetic Plan Anesthetic Plan: GA Disposition: Standard PACU
--- NOTE | ~2022-04-16 | XR_ITS ---
EXAMINATION: XR CHEST CLINICAL INFORMATION: Right-sided biopsies. COMPARISON: 02/25/[address] scan dated 03/03/2022 TECHNIQUE: Frontal view of the chest was obtained. FINDINGS: Significant interval decrease in masslike opacities with and air-fluid levels in the right lung. There is mild elevation of the right hemidiaphragm. The left lung is clear. The heart and mediastinal structures are unremarkable. XR/XR chest 1V IMPRESSION: Significant interval decrease in masslike opacities and air-fluid levels in the right lower lung with persistent infiltrates at the right lung base.
[2022-04-16 06:44] VITALS: BP 115/77; PULSE 84; RESP 18; TEMP 36.6; O2SAT 99
[2022-04-16 07:00] LABS: Amphetamine Screen Urine Not Detected (Not Detect); Barbiturates, Urine Not Detected (Not Detect); Benzodiazepines Screen Urine Not Detected (Not Detect); Cannabinoid Screen Urine Not Detected (Not Detect); Cocaine Screen Urine Not Detected (Not Detect); Fentanyl, urine Not Detected (Not Detect); Opiate Screen Urine Not Detected (Not Detect); Phencyclidine Screen Urine Not Detected (Not Detect)
[2022-04-16] MEDS: Lactated Ringers 1,000 ML 100 ML IVCONT (07:15)
--- NOTE | 2022-04-16 08:03 | MHC.SHP ---
Pre-Procedural Eval Section A Date of Service: 04/16/22 The patient is an INPATIENT: No Changes since office visit: No Cold of Flu in the past 2 weeks, No New Medical Problems, No Changes in Medication and No Patient answered all questions The History & Physical has been completed within 30 days and I have reviewed it.: Yes Section B Chief Complaint: Other disorders of lung Allergies: Allergies Allergy/AdvReac Type Severity Reaction Status Date / Time morphine [MORPHINE] Allergy Unknown NAUSEA & Verified 04/07/22 14:35 VOMITING, ABD PAIN Plan I have reviewed the history and physical and performed a pertinent physical examination on my patient. No changes have occurred unless specified.
--- NOTE | 2022-04-16 08:59 | P.BOP_ITS ---
Brief Operative Note Date of Service: 04/16/22 Pre-op diagnosis: cavitary lung disease Post-op diagnosis: same Procedure: Bronchoscopy with transbronchial biopsies, washings, brushings Implants: Surgeon: Kemar Schwarz MD Anesthesia: GETA Was an Supervisor Corduroy Cutting used for this Procedure?: No Estimated blood loss (mL): 1 Pathology: other (Transbronchial biopsies right middle lobe) Condition: stable Disposition: same day
[2022-04-16 09:06] VITALS: BP 136/80; PULSE 120; RESP 22; TEMP 36.6; O2SAT 99
[2022-04-16 09:11] VITALS: BP 127/70; PULSE 114; RESP 22; O2SAT 98
[2022-04-16 09:16] VITALS: BP 126/74; PULSE 115; RESP 20; O2SAT 98
[2022-04-16 09:21] VITALS: BP 124/73; PULSE 105; RESP 20; O2SAT 99
[2022-04-16 09:36] VITALS: BP 127/77; PULSE 96; RESP 18; TEMP 36.6; O2SAT 96
--- NOTE | 2022-04-17 03:12 | OP_ITS ---
SURGEON: Kemar Schwarz MD PREOPERATIVE DIAGNOSIS: POSTOPERATIVE DIAGNOSIS: PROCEDURE PERFORMED: ESTIMATED BLOOD LOSS: COMPLICATIONS: ANESTHESIA: General endotracheal intubation. ASSISTANTS: SPECIMENS: PREOPERATIVE DIAGNOSES: Cavitary lung disease and pneumonia. POSTOPERATIVE DIAGNOSES: Cavitary lung disease and pneumonia. PROCEDURES PERFORMED: Bronchoscopy with transbronchial biopsies, washings, and brushings. DESCRIPTION OF PROCEDURE: After the patient was adequately sedated, flexible digital bronchoscope was inserted over the ET tube to the level of the trachea. Tracheal mucosa appeared normal. The tracheobronchial tree was examined to the subsegmental level. The patient did have moderate amount of mucoid secretions, right more than left, primarily in the lower lobes. Also, had diverticula from chronic airway disease, but no endobronchial lesions or masses. The bronchoscope was navigated to the subsegmental level. No evidence of any malignancy. The bronchoscope initially was placed in the right upper lobe and a cytologic brush was introduced into the right upper lobe apical segment where he had his apical cavity that was sent for cytology. A second brushing of the right lung for microbiology was initially done in the right upper lobe and also right middle lobe and right lower lobe and that was sent for microbiology. After that brush, he did have some bleeding from the right middle lobe area. Iced saline used with good hemostasis. Using forceps, transbronchial biopsies were collected from the right middle lobe. The tissue that was returning appeared to be necrotic, mushy and purulent. Therefore, some tissue specimens were sent in formalin, but other tissue specimens were actually placed on sterile water for microbiology. The patient had little bleeding afterwards, so therefore, half an ampule of epinephrine was used with good hemostasis. Otherwise, bronchial washings with saline was provided throughout the right and left lung cleaning out any mucus plugging from both sides, right more than left. The specimens were sent out for Cytology and Microbiology as well. At the end of the procedure, the patient tolerated the procedure well. Vital signs were stable throughout the procedure. The total endoscopic time approximately 50 minutes. Chest x-ray postprocedure was actually stable and actually better than previous. INTERPRETATION: 1. Successful transbronchial biopsies on the right middle lobe. 2. Cytologic and microscopic brushings from the right upper lobe and also the right lung. 3. Bilateral lung washings. 4. Half ampule of epinephrine used for good hemostasis. No active bleeding at the end of the procedure. MD LILIAN Frausto/RASHEED / [id number]
== END 2022-04-16 10:10 | disposition home or self-care (01) ==
PROVIDERS: Nurse Practitioner; Visit Provider Hospitalist
PROC: 0BJ08ZZ Inspection of Tracheobronchial Tree, Via Natural or Artificial Opening Endoscopic (ICD-10-PCS; CPT 31622; principal; 2022-04-16 08:00)
DX: J98.4 Other disorders of lung (principal); J85.0 Gangrene and necrosis of lung; A31.0 Pulmonary mycobacterial infection; Z87.01 Personal history of pneumonia (recurrent); K29.70 Gastritis, unspecified, without bleeding; F11.20 Opioid dependence, uncomplicated; F12.20 Cannabis dependence, uncomplicated; F17.210 Nicotine dependence, cigarettes, uncomplicated; F14.21 Cocaine dependence, in remission; Z88.8 Allergy status to other drugs, medicaments and biological substances
CPT/HCPCS: 31628; 31623; 71045; 80307; 87071; 87073; 87081; 87102; 87116; 87205; 88112; 88305; J0171; J1100; J2250; J2405; J3010

== ENCOUNTER 2022-05-04 15:27 | Outpatient (REF) | payer MEDICAID, SELFPAY ==
[2022-05-04 15:39] LABS: MANUAL DIFF FLAG NO
[2022-05-04 16:11] LABS: Basophils Absolute Auto 0.1 X10*3/uL (0.0-0.2); Basophils Percent Auto 0.8 % (0-2); Eosinophils Absolute Auto 0.3 X10*3/uL (0.0-0.4); Eosinophils Percent Auto 3.4 % (0-4); Hematocrit 42.3 % (42.0-52.0); Hemoglobin 14.5 g/dl (14.0-18.0); Imm Gran Abs Auto 0.04 X10*3/uL (0.00-0.03); Imm Gran Pct Auto 0.4 % (0.0-0.4); Lymphocytes Absolute Auto 3.5 X10*3/uL (1.2-4.9); Lymphocytes Percent Auto 36.1 % (20-40); Mean Corpuscular HGB Conc 34.3 g/dl (31.0-36.0); Mean Corpuscular Hemoglobin 28.8 pg (27.0-33.0); Mean Corpuscular Volume 83.9 fL (80.0-98.0); Mean Platelet Volume 8.9 fL (9.4-12.4); Monocytes Absolute Auto 0.9 X10*3/uL (0.1-1.2); Monocytes Percent Auto 8.8 % (2-11); Neutrophils Absolute Auto 4.9 x10*3/uL (2.0-8.3); Neutrophils Percent Auto 50.5 % (45-73); Platelet Count 346 X10*3/uL (160-400); Red Blood Count 5.04 X10*6/uL (4.60-5.80); Red Cell Distribution Width 13.7 % (11.0-16.0); White Blood Count 9.7 X10*3/uL (4.8-10.8)
[2022-05-04 16:56] LABS: Erythrocyte Sedimentation Rate 6 MM/HR (0-15)
[2022-05-04 16:57] LABS: Alanine Aminotransferase 22 U/L (0-40); Albumin Level 4.5 g/dL (3.5-5.0); Alkaline Phosphatase 87 U/L (39-117); Anion Gap 14 (12-20); Aspartate Amino Transferase 18 U/L (5-37); Bilirubin Direct 0.2 mg/dL (0.0-0.5); Bilirubin Total 0.3 mg/dL (0.0-1.0); Blood Urea Nitrogen 9 mg/dL (9-16); Calcium 9.9 mg/dL (8.4-10.2); Carbon Dioxide 23 mmol/L (22-29); Chloride 105 mmol/L (96-108); Estimated Glomerular Filt Rate > 60; Glucose Random 76 mg/dL (60-115); Potassium 4.1 mmol/L (3.3-5.1); Sodium 138 mmol/L (135-145); Total Protein 7.9 g/dL (6.5-8.0)
== END 2022-05-04 15:28 | disposition home or self-care (01) ==
LOC: HO.LAB 15:27
PROVIDERS: Visit Provider Hospitalist
DX: J98.4 Other disorders of lung (principal); J85.0 Gangrene and necrosis of lung; A31.0 Pulmonary mycobacterial infection; F17.200 Nicotine dependence, unspecified, uncomplicated
CPT/HCPCS: 36415; 80048; 80076; 85025; 85652; 99212

== ENCOUNTER 2022-05-10 10:30 | Emergency (ER) | payer MEDICAID, SELFPAY ==
[2022-05-10 10:39] VITALS: BP 135/84; BP 138/95; PULSE 121; PULSE 94; RESP 16; TEMP 36; O2SAT 100; O2SAT 98; BMI 27.1
--- NOTE | 2022-05-10 10:46 | ECG_ITS ---
Test Reason : tachy, overdose Blood Pressure : / mmHG Vent. Rate : 094 BPM Atrial Rate : 094 BPM P-R Int : 164 ms QRS Dur : 084 ms QT Int : 374 ms P-R-T Axes : 059 034 037 degrees QTc Int : 467 ms Normal sinus rhythm Normal ECG When compared with ECG of 25-FEB-2022 14:14, No significant change was found Referred By: Alfredo Peña Electronically Signed By:Carrillo Sabillon
[2022-05-10 10:58] VITALS: PULSE 93; O2SAT 96
--- NOTE | 2022-05-10 11:06 | ED_ITS ---
HPI - Overdose General Chief Complaint: Overdose Stated Complaint: OVERDOSE Time Seen by Provider: 05/10/22 10:46 Source: patient Mode of arrival: ambulatory Limitations: no limitations History of Present Illness HPI Narrative: 51 yold male presents to the ED for overdose over heroin. Patient brought by EMS for overdosing on 2 bags of heroin. Patient states overdose was not intentional. Patient states he was just trying to get through to the day so he took 2 bags of heroin. patient states he took heroin because he was not able to go to his clinic to receive methadone. Patient last methadone was this past Wednesday. Patient usually takes 30 mg of methadone. Patient denies any suicidal or homicidal ideation. Patient denies any physical complaints. Patient overdosed at home. Related Data Home Medications Medication Instructions Recorded Confirmed methadone 10 mg/mL oral concentrate 30 mg PO DAILY 02/25/22 04/08/22 Previous Rx's Medication Instructions Recorded amoxicillin 875 mg-potassium 1 tab PO BID 28 days #56 tabs 05/04/22 clavulanate 125 mg tablet Allergies Allergy/AdvReac Type Severity Reaction Status Date / Time morphine [MORPHINE] Allergy Unknown NAUSEA & Verified 05/04/22 14:41 VOMITING, ABD PAIN Review of Systems Review of Systems: overdose Yes all other systems are reviewed and are negative [facility] Past Medical History Medical History (Updated 05/10/22 @ 12:46 by BERKLEY Del Toro) COVID-19 vaccination declined Gastritis Hx of drug dependence Methadone dependence Pneumonia Smoker Ulcerative esophagitis Surgical History Hx of endoscopic retrograde cholangiopancreatography Social History Social History (Updated 04/07/22 @ 14:36 by FABI Dotson) Household Members: Other Household Members Other:: lives with friends Housing: House Do you presently have visiting nurse or other home services: No Alcohol intake: current Alcohol intake frequency: 0-2 drinks per day Patient Tobacco Use Status: Current everyday Tobacco user Tobacco use type: Cigarette Cigarette Packs Per Day: 1 Cigarettes Per Day: 6 Years Smoked: 32 e-Cigarette/Vaping Use: Never Used Second Hand Smoke Exposure: No Use of substances other than those prescribed or required for medical reasons: Yes Substance Use Type: Opiates Advance Directives: No Advance Directives Information Provided: Yes service: No Current occupational status: unemployed Physical Exam Vital Signs: Vital Signs: Last Vital Signs Temp 96.8 F 05/10/22 10:39 Pulse 86 05/10/22 13:01 Resp 16 05/10/22 10:39 BP 135/84 05/10/22 10:39 Pulse Ox 99 05/10/22 13:01 O2 Del Method 05/10/22 13:01 BMI result Body Mass Index 27.1 Const: General: cooperative, healthy appearing, comfortable, no acute distress, well developed, alert, awake and Physically active Orientation/consciousness: patient oriented x3 HEENT: Head: Yes normal to inspection, Yes No palpable skull fracture present, Yes normocephalic, Yes atraumatic and No abrasion Eyes: General: appearance normal, both eyes and all related structures Neck: Neck: Yes normal visual inspection, Yes full ROM, Yes no lymphadenopathy, Yes no meningeal signs, Yes trachea midline, Yes supple, No anterior neck swelling and No tender Chest: Chest palpation & inspection: normal inspection of the chest and normal palpation of entire chest wall Resp: Effort & Inspection: normal respiratory effort and able to speak in complete sentences Cardio: Jugular venous distension: no JVD Heart sounds: S1 normal heart sound present and S2 normal heart sound present GI: Inspection: Yes normal to inspection and No abdominal wall ecchymosis Palpation (GI): Soft to palpation, not firm, nontender and no guarding : General: No CVA tenderness and Yes no CVA tenderness Back/Spine/Pelvis: Back: no CVA tenderness, No CVA tenderness and No back tenderness Skin: General skin exam: no rashes or lesions noted and elasticity normal Neuro: General: patient oriented x3, gait normal, no meningeal signs and CN's II-XI intact bilaterally Cranial nerves: Yes CN's II-XII intact bilaterally Extrem: General: Yes normal to inspection and Yes full ROM Psych: Appearance: grossly normal, well kempt and not disheveled Course Course Course Narrative: Patient interested in speaking to care team. Patient will be observed in the ER. Reevaluation(s) Reevaluation #1: patient seen by CARE team/oil recovery operator Payam who gave patient outpatient resources for detox and discussed making sure he has transport to methadone clinic tomorrow. Patient will be discharged with naloxone Time: 12:43 MDM - Overdose MDM Narrative Medical decision making narrative: accidental overdose. Substance abuse ECG Data Interpretation: normal sinus rhythm. Ventricular rate 94. PA interval 164. QRS 84. QTC 467. Negative STEMI Discharge Plan Discharge Clinical Impression: Opioid abuse Patient Disposition: Home, Self-Care Instructions: Opioid Use Disorder (ED) Additional Instructions: return to the ED for any suicidal / homicidal ideation, auditory / visual hallucinations, any physical complaints, or any other concerning symptoms. P ranjit follow-up with outpatient resource detox program given to you by our care team provider. Prescriptions: No Action methadone 10 mg/mL Concentrate 30 mg PO DAILY amoxicillin-pot clavulanate 875-125 mg tablet 1 tab PO BID 28 Days Qty: 56 0RF Interventions: ED Discharge Assessment Last Done: 05/10/22 13:14 Discharge Date/Time: 05/10/22 13:15 Print Language: Dominican
--- NOTE | 2022-05-10 12:31 | HO.SUDE ---
SUDE Patient is a 51 year old Lithuanian speaking male who presented to [facility] ED via EMS after an accidental overdose. This leader writer and catalyst recovery operator met with patient to discuss substance use and treatment options. Patient reports he has not used heroin in several months. Patient receives 30mg of methadone from [facility] in [place]. 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 Patient reports he tried drinking Wednesday to cope with the withdrawal however ended up getting heroin when the drinking did not help. Patient could not recall if he had previous overdoses however stated I must have. Patient was irritable and not interested in hearing about recovery resources. Patient stated meetings annoy me and I don't like to talk to people. Discussed [facility] service and recovery coaching. Patient accepted info on [facility] and was open to being referred to a catalyst recovery operator. Encouraged patient to consider establishing care with a closer OTP. Patient was not interested in this. Harm reduction was discussed and education on tolerance and combining substances was provided.
[2022-05-10 13:01] VITALS: PULSE 86; O2SAT 99
[2022-05-10] MEDS: Naloxone HCl Nasal TAKE HOME 4 MG SPRAY NOSTRILALT (13:14)
== END 2022-05-10 13:15 | disposition home or self-care (01) ==
PROVIDERS: Emergency Provider Emergency Medicine
DX: T40.1X1A Poisoning by heroin, accidental (unintentional), initial encounter (principal); Y92.9 Unspecified place or not applicable; F17.210 Nicotine dependence, cigarettes, uncomplicated; Z71.6 Tobacco abuse counseling; Z79.899 Other long term (current) drug therapy; F11.19 Opioid abuse with unspecified opioid-induced disorder; Z71.51 Drug abuse counseling and surveillance of drug abuser
CPT/HCPCS: 93005; 99285

== ENCOUNTER 2022-06-23 09:39 | Outpatient (REF) | payer MEDICAID, SELFPAY ==
--- NOTE | ~2022-06-23 | XR_ITS ---
EXAMINATION: XR CHEST CLINICAL INFORMATION: Gangrene and necrosis of lung. COMPARISON: Chest x-ray of 04/16/[address] chest of 03/03/2022. TECHNIQUE: 2 views of the chest were obtained. FINDINGS: There has been improvement in but still some residual density along the right minor fissure consistent with some degree of scarring. No pneumothorax or pleural effusion. Heart normal size. No evidence of pulmonary edema. XR/XR chest 2V IMPRESSION: Continued improvement in right lung density with appearance of scarring.
== END 2022-06-23 09:40 | disposition home or self-care (01) ==
LOC: HO.XRAY 09:39
PROVIDERS: Visit Provider Hospitalist
DX: J85.0 Gangrene and necrosis of lung (principal); J98.4 Other disorders of lung; A31.0 Pulmonary mycobacterial infection; F17.200 Nicotine dependence, unspecified, uncomplicated; Z71.6 Tobacco abuse counseling
CPT/HCPCS: 71046; 99212

== ENCOUNTER 2022-07-15 12:24 | Outpatient (REF) | payer MEDICAID, SELFPAY ==
--- NOTE | ~2022-07-15 | CT_ITS ---
EXAMINATION: CT CHEST WITHOUT CONTRAST CLINICAL INFORMATION: STEPH infection COMPARISON: Previous chest CT most recent February 2010 TECHNIQUE: Multidetector volumetric CT imaging of the chest was done. Axial MIP volume rendering provided. Sagittal and coronal reformatted images were obtained. This CT examination was performed using dose optimization techniques as appropriate, variously including the following: *Automated exposure control *Adjustment of mA and/or kV according to patient size (this includes techniques or standardized protocols for targeted exams where dose is matched to indication/reason for exam; i.e. extremities or head) *Use of iterative reconstruction technique DLP: 336 mGy-cm FINDINGS: LUNGS: There is increasing volume loss to the right hemithorax. The previously identified multifocal consolidation and cavity formation on February 2022 exam is markedly improved. There is focal scarring and bronchiectasis and some cystic change or cavity formation seen in the posterior segment of the right upper lobe and superior segment of the right lower lobe adjacent to the major fissure. There is focal bronchiectasis and scarring or atelectasis in the right middle lobe. There is diffuse centrilobular small nodules and increased peribronchial attenuation bilaterally, right greater than left suggestive of tree-in-bud appearance or airways disease. The left lung is otherwise clear. MEDIASTINUM: There are small mediastinal lymph nodes. These appear decreased from February 2022 exam. The heart size is normal. There is no pericardial effusion. The thoracic aorta is normal in caliber. CORONARY ARTERY CALCIFICATION: None visualized on this study. PLEURA: There is no pleural effusion. No pleural mass or thickening. AXILLA: There is bilateral axillary lymphadenopathy, right greater than left. This is unchanged from previous exam. UPPER ABDOMEN: The gallbladder is contracted. The common bile duct is slightly prominent measuring 1.3 cm. No stone is appreciated by CT. OSSEOUS STRUCTURES: Unremarkable. CT/CT chest wo IV con IMPRESSION: Significant improvement in the large multifocal areas is consolidation and cavity formation in the right lung compared to February 2022 exam. There is residual scarring and bronchiectasis, some small areas of cystic change in volume loss in the right lung. Evidence of mild airways disease, right greater than left. Fleischner guidelines were followed.
== END 2022-07-15 12:25 | disposition home or self-care (01) ==
LOC: HO.CT 12:24
PROVIDERS: Visit Provider Hospitalist
DX: A31.0 Pulmonary mycobacterial infection (principal); J18.9 Pneumonia, unspecified organism
CPT/HCPCS: 71250

== ENCOUNTER → 2022-08-20 13:21 | Outpatient (BNVA) | payer MEDICAID, SELFPAY | PROVIDERS: PCP Internal Medicine; Visit Provider Hospitalist | DX: J98.4 Other disorders of lung (principal); J85.0 Gangrene and necrosis of lung; A31.0 Pulmonary mycobacterial infection; F17.200 Nicotine dependence, unspecified, uncomplicated | CPT/HCPCS: 99212 ==

== ENCOUNTER → 2022-11-24 13:31 | Outpatient (BNVA) | payer MEDICAID, SELFPAY | PROVIDERS: PCP Internal Medicine; Visit Provider Hospitalist | DX: J98.4 Other disorders of lung (principal); J85.0 Gangrene and necrosis of lung; A31.0 Pulmonary mycobacterial infection; J44.9 Chronic obstructive pulmonary disease, unspecified; F17.210 Nicotine dependence, cigarettes, uncomplicated; Z71.6 Tobacco abuse counseling | CPT/HCPCS: 99212 ==

== ENCOUNTER → 2023-04-15 13:02 | Outpatient (BNVA) | payer MEDICAID, SELFPAY | PROVIDERS: PCP Internal Medicine; Visit Provider Hospitalist | DX: A31.0 Pulmonary mycobacterial infection (principal); J85.0 Gangrene and necrosis of lung; J98.4 Other disorders of lung; F17.210 Nicotine dependence, cigarettes, uncomplicated; Z79.891 Long term (current) use of opiate analgesic | CPT/HCPCS: 99212 ==

== ENCOUNTER 2023-05-04 09:05 | Outpatient (REF) | payer MEDICAID, SELFPAY ==
--- NOTE | ~2023-05-04 | XR_ITS ---
EXAMINATION: CHEST 2 VIEWS CLINICAL INFORMATION: A31.0 - Pulmonary mycobacterial infection. COMPARISON: 06/23/2022. TECHNIQUE: PA and lateral views of the chest obtained. FINDINGS: Lungs well-expanded. Chronic linear scarring in the lateral aspect of the right lung base appears similar to the prior 2021 study. No superimposed focal infiltrate, effusion, edema, or pneumothorax. Cardiac and mediastinal silhouettes within normal limits for size. No acute bony abnormality XR/XR chest 2V IMPRESSION: Chronic appearing changes similar to the 06/23/2022 study.
[2023-05-04 09:37] LABS: MANUAL DIFF FLAG NO
[2023-05-04 10:25] LABS: Basophils Absolute Auto 0.1 X10*3/uL (0.0-0.2); Basophils Percent Auto 1.2 % (0-2); Eosinophils Absolute Auto 0.3 X10*3/uL (0.0-0.4); Eosinophils Percent Auto 4.4 % (0-4); Hematocrit 42.5 % (42.0-52.0); Hemoglobin 14.6 g/dl (14.0-18.0); Imm Gran Abs Auto 0.03 X10*3/uL (0.00-0.03); Imm Gran Pct Auto 0.4 % (0.0-0.4); Lymphocytes Absolute Auto 3.2 X10*3/uL (1.2-4.9); Lymphocytes Percent Auto 43.6 % (20-40); Mean Corpuscular HGB Conc 34.4 g/dl (31.0-36.0); Mean Corpuscular Hemoglobin 33.3 pg (27.0-33.0); Mean Platelet Volume 9.1 fL (9.4-12.4); Monocytes Absolute Auto 0.6 X10*3/uL (0.1-1.2); Monocytes Percent Auto 7.6 % (2-11); Neutrophils Absolute Auto 3.1 x10*3/uL (2.0-8.3); Neutrophils Percent Auto 42.8 % (45-73); Platelet Count 335 X10*3/uL (160-400); Red Blood Count 4.38 X10*6/uL (4.60-5.80); Red Cell Distribution Width 13.3 % (11.0-16.0); White Blood Count 7.2 X10*3/uL (4.8-10.8)
[2023-05-04 11:11] LABS: Alanine Aminotransferase 39 U/L (0-40); Albumin Level 4.3 g/dL (3.5-5.0); Alkaline Phosphatase 92 U/L (39-117); Anion Gap 16 (12-20); Aspartate Amino Transferase 34 U/L (5-37); Bilirubin Direct 0.1 mg/dL (0.0-0.5); Bilirubin Total 0.3 mg/dL (0.0-1.0); Blood Urea Nitrogen 8 mg/dL (9-16); Calcium 9.1 mg/dL (8.4-10.2); Carbon Dioxide 22 mmol/L (22-29); Chloride 105 mmol/L (96-108); Estimated Glomerular Filt Rate > 60; Glucose Random 98 mg/dL (60-115); Potassium 3.7 mmol/L (3.3-5.1); Sodium 139 mmol/L (135-145); Total Protein 7.7 g/dL (6.5-8.0)
[2023-05-04 11:15] LABS: Erythrocyte Sedimentation Rate 4 MM/HR (0-15)
== END 2023-05-04 09:06 | disposition home or self-care (01) ==
LOC: HO.LAB 09:05
PROVIDERS: Visit Provider Hospitalist
DX: A31.0 Pulmonary mycobacterial infection (principal)
CPT/HCPCS: 36415; 71046; 80048; 80076; 85025; 85652

== ENCOUNTER 2024-03-14 11:17 | Emergency (ER) | payer MEDICAID, SELFPAY ==
--- NOTE | ~2024-03-14 | CT_ITS ---
EXAMINATION: CT ABDOMEN AND PELVIS WITHOUT CONTRAST CLINICAL INFORMATION: Suprapubic pain COMPARISON: 07/23/2019 TECHNIQUE: Multidetector volumetric imaging was performed from the superior aspect of the liver through the pubic symphysis. Sagittal and coronal reformatted images were obtained on the technologist's workstation. This CT examination was performed using dose optimization techniques as appropriate, variously including the following: *Automated exposure control *Adjustment of mA and/or kV according to patient size (this includes techniques or standardized protocols for targeted exams where dose is matched to indication/reason for exam; i.e. extremities or head) *Use of iterative reconstruction technique DLP: 752 mGy-cm FINDINGS: LUNG BASES: Right middle lobe atelectasis. Nonenlarged heart. No pericardial effusion. LIVER, GALLBLADDER, AND BILIARY TREE: Heterogeneous low density liver. No focal hepatic lesion or intrahepatic biliary ductal dilatation is present. The gallbladder is unremarkable with no evidence of radiopaque gallstones, gallbladder wall thickening, or obvious pericholecystic inflammatory changes. Chronic dilatation of the common bile duct to 1.4 cm. PANCREAS: Unremarkable. SPLEEN: Unremarkable. ADRENAL GLANDS: Unremarkable. KIDNEYS AND URETERS: The kidneys are normal in size, shape, and attenuation. No hydronephrosis, hydroureter, or calculi seen. No perinephric stranding. BLADDER: Decompressed. GASTROINTESTINAL TRACT: Small hiatal hernia. Stomach is under distended. Nonobstructive bowel pattern. Study limited without oral contrast. Prominent lower abdominal fluid-filled small bowel loops but no definite obstructive pattern. Region of the terminal ileum and cecum not well seen. unremarkable appendix. No colonic pathology. ABDOMINAL WALL: Small fat filled umbilical and bilateral inguinal hernias. LYMPH NODES: No pathologic lymphadenopathy. VASCULAR: Atherosclerotic calcifications nonaneurysmal aorta. Normal caliber inferior vena cava. PELVIC VISCERA: Prostate calcifications. OSSEOUS STRUCTURES: L4-L5 posterior calcified disc impressing on the thecal sac left of midline. Unchanged probable right sacral bone island. CT/CT abdomen pelvis wo IV con IMPRESSION: Heterogeneous, enlarged fatty liver. Chronic common bile duct dilatation No acute intra-abdominal or pelvic pathology. Fleischner guidelines were followed.
[2024-03-14 11:26] VITALS: BP 144/102; PULSE 102; RESP 17; TEMP 37; O2SAT 98; BMI 31.4
--- NOTE | 2024-03-14 11:26 | ED.GENADULT ---
HPI - General Adult General Chief complaint: Abdominal Pain Stated complaint: Abd pain/Dry heaving 6-9 months Time Seen by Provider: 03/14/24 15:07 Source: patient and old records reviewed Mode of arrival: ambulatory Limitations: no limitations History of Present Illness ED Provider: LORE BEAULIEU narrative: 53 yo male with PMH of daily heavy ETOH abuse and treated MAC by [facility] here with c/o 9 months of intermittent abdominal pain and AM n/v no GIB symptoms no change in stools Has never seen GI or PCP about this. No PPI or H2 blockers. He has not had fevers. No colonoscopy in the past. Came today as it was affecting work. He does note anxiety MD complaint: abdominal pain Onset (ago): month(s) (9) Location: abdomen Radiation: non-radiation Severity: moderate Quality: aching Pain Consistency: intermittent Relieving factors: none Exacerbating factors: eating Associated symptoms: nausea/vomiting Treatments prior to arrival: none Related Data Home Medications ?Medication ?Instructions ?Recorded ?Confirmed methadone 10 mg/mL oral concentrate 30 mg PO DAILY 02/25/22 04/08/22 budesonide-formoterol HFA 160 2 puff inhalation BID PRN 08/20/22 mcg-4.5 mcg/actuation aerosol inhaler (Symbicort) ibuprofen 200 mg tablet 200 mg PO Q6H PRN 08/20/22 Previous Rx's ?Medication ?Instructions ?Recorded azithromycin 500 mg tablet 500 mg PO 3XW 90 days #39 tabs 11/24/22 ondansetron HCl 4 mg tablet 4 mg PO Q8H PRN nausea and 04/15/23 vomiting 30 days #10 tabs dicyclomine 20 mg tablet 20 mg PO BID PRN abdominal pain 03/14/24 #30 tabs omeprazole 40 mg capsule,delayed 40 mg PO DAILY #30 caps 03/14/24 release Allergies Allergy/AdvReac Type Severity Reaction Status Date / Time morphine [MORPHINE] Allergy Unknown NAUSEA & Verified 03/14/24 11:29 VOMITING, ABD PAIN Review of Systems Review of Systems: Constitutional : No Weight loss, No Fever, No Chills ENT/Mouth : No sore throat, No Rhinorrhea Eyes: No Swelling, No Redness Cardiovascular : No Chest Pain, No SOB, NoEdema Respiratory : No Cough, No Sputum, No Wheezing Gastrointestinal : Positive Nausea, Positive Vomiting, no Diarrhea, positive abdominal Pain, No Hematochezia, No Melena Genitourinary : No Dysuria, No Urinary Frequency, No Hematuria, No Urgency Musculoskeletal : No joint pain, No Myalgias, No Joint Swelling Skin : No Skin Lesions, No rash Neuro : No Weakness, No Numbness, No Dizziness, No Headache Psych : No Anxiety/Panic, No Depression All other systems reviewed and are negative. [facility] Past Medical History Attestation statement: The following information was validated with the patient. Source: old records reviewed Medical History COVID-19 vaccination declined Ulcerative esophagitis Hx of drug dependence Pneumonia Gastritis Smoker Methadone dependence Surgical History Hx of endoscopic retrograde cholangiopancreatography Social History Social History Household Members: Other Household Members Other:: lives with friends Housing: House Do you presently have visiting nurse or other home services: No Alcohol intake: current Alcohol intake frequency: 0-2 drinks per day Patient Tobacco Use Status: Current everyday Tobacco user Tobacco use type: Cigarette Cigarette Packs Per Day: 1 Cigarettes Per Day: 6 Years Smoked: 32 e-Cigarette/Vaping Use: Never Used Second Hand Smoke Exposure: No Substance Use Type: Opiates Advance Directives: No Advance Directives Information Provided: No service: No Current occupational status: unemployed Physical Exam ED Vital Signs: Vital Signs - 24 hr 03/14/24 11:26 Temperature 98.6 F Pulse Rate 102 H Respiratory Rate 17 Blood Pressure 144/102 H Pulse Oximetry 98 Oxygen Delivery Method Room Air BMI result Body Mass Index 31.4 Appearance: Alert. Oriented X3. No acute distress. Eyes: Pupils equal, round and reactive to light. ENT: Pharynx normal. Neck: Normal inspection. Neck supple. CVS: Normal heart rate and rhythm. Pulses normal. Respiratory: No respiratory distress. Breath sounds normal. Abdomen: Soft and nontender. Skin: Skin warm and dry. Normal skin color. Normal skin turgor. Extremities: No lower extremity edema. No calf ttp Neuro: Oriented X 3. No motor deficit. No sensory deficit. Course Course Course Narrative: This is a Rapid Medical Examination (RME) performed by Dariana Maria PA-C in triage. Full HPI, ROS, assessment and treatment plan per primary provider in the Main ED. 53 yo male here for eval of N/V x9 months, becoming more frequent over the last few weeks. endorses assoc suprapubic pain. states I feel like I have rocks in my intestines . admits to drinking 6-12 12oz beers/night. smokes marijuana daily however has not smoked in 3-4 weeks. denies constipation. last BM yesterday. denies fever, chills, dysuria, hematuria. abd firm, distended, nontender, no rebound or guarding, normoactive bsx4. Plan: labs, UA, CT scan. Medical Decision Making Medical Decision Making MDM Narrative: 53 yo male with PMH of non TB treated MAC, ETOH use here with c/o 9 months intermittent abdominal pain and AM n/v suspect likely gastritis vs pancreatitis vs side effect of ETOH - no signs of withdrawal on exam, labs, CT scan, PPI and supportive medications pending CT scan refer to GI and start on medications. No ttp on exam during ED visit. Differential Diagnosis Differential Diagnoses: The differential diagnosis associated with the presentation includes gastritis, pancreatitis, anxiety Admission/Observation Consideration of admission/observation: Escalation of care including admission/observation considered working reassuring stable for DC Lab Data [facility] Lab Attestation statement: I reviewed the patient's lab results. 03/14/24 11:50 03/14/24 11:50 Labs: Lab Results 03/14/24 03/14/24 Range/Units 11:37 11:50 WBC 9.3 (4.8-10.8) X10*3/uL RBC 4.90 (4.60-5.80) X10*6/uL Hgb 16.3 (14.0-18.0) g/dl Hct 45.1 (42.0-52.0) % MCV 92.0 (80.0-98.0) fL MCH 33.3 H (27.0-33.0) pg MCHC 36.1 H (31.0-36.0) g/dl RDW 13.2 (11.0-16.0) % Plt Count 314 (160-400) X10*3/uL MPV 8.5 L (9.4-12.4) fL Immature Gran % (Auto) 0.3 (0.0-0.4) % Neut % (Auto) 71.0 (45-73) % Lymph % (Auto) 18.9 L (20-40) % [place] % (Auto) 8.0 (2-11) % Eos % (Auto) 1.2 (0-4) % Baso % (Auto) 0.6 (0-2) % Lymph # (Auto) 1.8 (1.2-4.9) X10*3/uL [place] # (Auto) 0.7 (0.1-1.2) X10*3/uL Eos # (Auto) 0.1 (0.0-0.4) X10*3/uL Baso # (Auto) 0.1 (0.0-0.2) X10*3/uL Abs Immat Gran (auto) 0.03 (0.00-0.03) X10*3/uL Absolute Neuts (auto) 6.6 (2.0-8.3) x10*3/uL Absolute Nucleated RBC 0.000 (0.0-0.012) X10*3/uL Nucleated RBC % (auto) 0.0 (0.0-0.2) /100WBC Sodium 139 (135-145) mmol/L Potassium 3.3 (3.3-5.1) mmol/L Chloride 104 (96-108) mmol/L Carbon Dioxide 19 L (22-29) mmol/L Anion Gap 19 (12-20) BUN 8 L (9-16) mg/dL Creatinine 0.79 (0.5-1.4) mg/dL Estim Creat Clear Calc 138.5 Estimated GFR > 60 Random Glucose 111 (60-115) mg/dL Calcium 10.0 D (8.4-10.2) mg/dL Magnesium 2.2 (1.6-2.6) mg/dL Total Bilirubin 0.7 (0.0-1.0) mg/dL AST 33 (5-37) U/L ALT 32 (0-40) U/L Alkaline Phosphatase 118 H (39-117) U/L Total Protein 8.3 H (6.5-8.0) g/dL Albumin 4.6 (3.5-5.0) g/dL Lipase 15 (8-78) U/L Urine Color Dark Yellow Urine Appearance Clear Urine pH 7.0 (5.0-9.0) Ur Specific [place] 1.020 (1.005-1.025) Urine Protein Trace (Neg-Trace) mg/dL Urine Glucose (UA) Negative (Negative) mg/dL Urine Ketones Trace (Negative) mg/dL Urine Blood Negative (Negative) Urine Nitrite Negative (Negative) Ur Leukocyte Esterase Trace H (Negative) Urine RBC 0-2 (0-2) /HPF Urine WBC 0-5 (0-5) /HPF Ur Squamous Epith Cells 0-2 (0-2) /HPF Urine Bacteria None Seen (None Seen) Hyaline Casts 0-2 (0-2) /LPF Influenza Type A (PCR) NEGATIVE (Negative) Influenza Type B (PCR) NEGATIVE (Negative) RSV RNA Qual (PCR) NEGATIVE (Negative) SARS-CoV-2 RNA (RT-PCR) NEGATIVE (Negative) Independent Interpretation I performed an independent interpretation of an: CT Scan (fatty liver) Radiology Impression Discussion of test interpretation with radiology: I have reviewed the radiologist's reading. External Record Review External record reviewed: Office record Prescription Management I considered prescription management with: Other Discharge Plan Discharge Clinical Impression: Abdominal pain Qualifiers: Abdominal location: generalized Qualified Code(s): R10.84 - Generalized abdominal pain Gastritis Qualifiers: Gastritis type: alcoholic Chronicity: acute Gastritis bleeding: without bleeding Qualified Code(s): K29.20 - Alcoholic gastritis without bleeding Patient Disposition: Home, Self-Care Instructions: Gastritis (ED), Abdominal Pain (ED) Additional Instructions: CT scan shows fatty liver but otherwise no acute abnormality you need to follow up with your doctor for further workup please also call the GI doctor listed below return for worsening pain, bleeding from rectum, unexplained weight loss or any other concerns. Prescriptions: New omeprazole 40 mg capsule,delayed release(DR/EC) 40 mg PO DAILY Qty: 30 1RF dicyclomine 20 mg tablet 20 mg PO BID PRN (Reason: abdominal pain) Qty: 30 1RF No Action methadone 10 mg/mL Concentrate 30 mg PO DAILY budesonide-formoterol [Symbicort] 160-4.5 mcg/actuation HFA aerosol inhaler 2 puff inhalation BID PRN ibuprofen 200 mg tablet 200 mg PO Q6H PRN azithromycin 500 mg tablet 500 mg PO 3XW 90 Days Qty: 39 11RF ondansetron HCl 4 mg tablet 4 mg PO Q8H PRN (Reason: nausea and vomiting) 30 Days Qty: 10 2RF Referrals: Viridiana Cooper MD [Physician] - (GI doctor - call to schedule) Print Language: Persian
[2024-03-14 11:54] LABS: MANUAL DIFF FLAG NO
[2024-03-14 11:57] LABS: Appearance Urine Clear; Color Urine Dark Yellow; Glucose Urine UA Negative (Negative); Leukocyte Esterase Urine Trace (Negative); Nitrite Urine Negative (Negative); UMIC TRIGGER UACC YES; Urine Blood Negative (Negative); Urine Ketones Trace mg/dL (Negative); Urine Protein Trace mg/dL (Neg-Trace)
[2024-03-14 12:00] LABS: Basophils Absolute Auto 0.1 X10*3/uL (0.0-0.2); Basophils Percent Auto 0.6 % (0-2); Eosinophils Absolute Auto 0.1 X10*3/uL (0.0-0.4); Eosinophils Percent Auto 1.2 % (0-4); Hematocrit 45.1 % (42.0-52.0); Hemoglobin 16.3 g/dl (14.0-18.0); Imm Gran Abs Auto 0.03 X10*3/uL (0.00-0.03); Imm Gran Pct Auto 0.3 % (0.0-0.4); Lymphocytes Absolute Auto 1.8 X10*3/uL (1.2-4.9); Lymphocytes Percent Auto 18.9 % (20-40); Mean Corpuscular HGB Conc 36.1 g/dl (31.0-36.0); Mean Corpuscular Hemoglobin 33.3 pg (27.0-33.0); Mean Platelet Volume 8.5 fL (9.4-12.4); Monocytes Absolute Auto 0.7 X10*3/uL (0.1-1.2); Neutrophils Absolute Auto 6.6 x10*3/uL (2.0-8.3); Platelet Count 314 X10*3/uL (160-400); Red Cell Distribution Width 13.2 % (11.0-16.0); White Blood Count 9.3 X10*3/uL (4.8-10.8)
[2024-03-14 12:00] LABS: Bacteria Urine None Seen (None Seen); Hyaline Casts Urine 0-2 /LPF (0-2); RBC Urine 0-2 /HPF (0-2); Squamous Epithelial Cell Urine 0-2 /HPF (0-2); WBC Urine 0-5 /HPF (0-5)
[2024-03-14 12:16] LABS: Alanine Aminotransferase 32 U/L (0-40); Albumin Level 4.6 g/dL (3.5-5.0); Alkaline Phosphatase 118 U/L (39-117); Anion Gap 19 (12-20); Aspartate Amino Transferase 33 U/L (5-37); Bilirubin Total 0.7 mg/dL (0.0-1.0); Blood Urea Nitrogen 8 mg/dL (9-16); Carbon Dioxide 19 mmol/L (22-29); Chloride 104 mmol/L (96-108); Creatinine Clr Calc Pharmacy 138.5; Estimated Glomerular Filt Rate > 60; Glucose Random 111 mg/dL (60-115); Lipase 15 U/L (8-78); Magnesium 2.2 mg/dL (1.6-2.6); Potassium 3.3 mmol/L (3.3-5.1); Sodium 139 mmol/L (135-145); Total Protein 8.3 g/dL (6.5-8.0)
[2024-03-14 12:40] LABS: Influenza A PCR NEGATIVE (Negative); Influenza B PCR NEGATIVE (Negative); Resp Syncy Virus RNA Qual PCR NEGATIVE (Negative); SARS COV2 PCR INHOUSE NEGATIVE (Negative)
[2024-03-14 15:09] VITALS: BP 151/100; PULSE 74; RESP 18; TEMP 36.2; O2SAT 99
[2024-03-14 15:16] VITALS: BP 151/100; PULSE 74; RESP 18; TEMP 36.2; O2SAT 99
== END 2024-03-14 15:17 | disposition home or self-care (01) ==
PROVIDERS: Physician Assistant Medical; Emergency Provider Emergency Medicine
DX: K29.20 Alcoholic gastritis without bleeding (principal); R10.84 Generalized abdominal pain; F10.10 Alcohol abuse, uncomplicated; Y90.9 Presence of alcohol in blood, level not specified
CPT/HCPCS: 0241U; 74176; 80053; 81001; 83690; 83735; 85025; 99283; 99284

== ENCOUNTER 2024-03-29 06:09 | Emergency (ER) | payer MEDICAID, SELFPAY ==
--- NOTE | 2024-03-29 | ECG_ITS ---
Test Reason : CHEST PAIN Blood Pressure : / mmHG Vent. Rate : 088 BPM Atrial Rate : 088 BPM P-R Int : 156 ms QRS Dur : 074 ms QT Int : 378 ms P-R-T Axes : 031 022 037 degrees QTc Int : 457 ms Normal sinus rhythm Normal ECG When compared with ECG of 10-MAY-2022 10:52, No significant change was found Referred By: Generic ED Physician Electronically Signed By:MATHEW BERKOWITZ MD
--- NOTE | ~2024-03-29 | US_ITS ---
EXAMINATION: US ABDOMEN LIMITED-GALLBLADDER ONLY AT CLINICIAN REQUEST CLINICAL INFORMATION: Pain and vomiting. COMPARISON: CT of 03/14/2024 TECHNIQUE: Real-time imaging of the gallbladder. FINDINGS: GALLBLADDER: Ring down artifact is noted from the gallbladder wall consistent with adenomyomatosis/hyperplastic cholecystosis. No pericholecystic fluid, shadowing calculus or sonographic Remy sign is evident. US/US abdomen limited IMPRESSION: 1. No sonographic evidence of cholelithiasis or acute cholecystitis. 2. Adenomyomatosis/hyperplastic cholecystosis of the gallbladder.
[2024-03-29 06:21] VITALS: BP 167/98; PULSE 102; RESP 18; TEMP 36.3; O2SAT 97; BMI 29.8
--- NOTE | 2024-03-29 06:29 | PC.NURSE ---
while putting in orders for triage pt states he is having left sided chest pain. EKG order placed.
[2024-03-29 06:51] LABS: Basophils Absolute Auto 0.1 X10*3/uL (0.0-0.2); Basophils Percent Auto 1.1 % (0-2); Eosinophils Absolute Auto 0.1 X10*3/uL (0.0-0.4); Eosinophils Percent Auto 0.6 % (0-4); Hematocrit 44.9 % (42.0-52.0); Hemoglobin 16.4 g/dl (14.0-18.0); Imm Gran Abs Auto 0.04 X10*3/uL (0.00-0.03); Imm Gran Pct Auto 0.5 % (0.0-0.4); Lymphocytes Absolute Auto 1.3 X10*3/uL (1.2-4.9); Lymphocytes Percent Auto 16.6 % (20-40); MANUAL DIFF FLAG NO; Mean Corpuscular HGB Conc 36.5 g/dl (31.0-36.0); Mean Corpuscular Hemoglobin 33.3 pg (27.0-33.0); Mean Corpuscular Volume 91.3 fL (80.0-98.0); Mean Platelet Volume 8.6 fL (9.4-12.4); Monocytes Absolute Auto 0.8 X10*3/uL (0.1-1.2); Monocytes Percent Auto 9.7 % (2-11); Neutrophils Absolute Auto 5.6 x10*3/uL (2.0-8.3); Neutrophils Percent Auto 71.5 % (45-73); Platelet Count 349 X10*3/uL (160-400); Red Blood Count 4.92 X10*6/uL (4.60-5.80); Red Cell Distribution Width 13.1 % (11.0-16.0); White Blood Count 7.9 X10*3/uL (4.8-10.8)
[2024-03-29 06:54] LABS: Appearance Urine Clear; Color Urine Dark Yellow; Glucose Urine UA Negative (Negative); Leukocyte Esterase Urine Negative (Negative); Nitrite Urine Negative (Negative); UMIC TRIGGER UACC YES; Urine Blood Negative (Negative); Urine Ketones Trace mg/dL (Negative); Urine Protein 30 (1+) mg/dL (Neg-Trace)
[2024-03-29 06:57] LABS: Bacteria Urine None Seen (None Seen); Hyaline Casts Urine 0-2 /LPF (0-2); RBC Urine 0-2 /HPF (0-2); Squamous Epithelial Cell Urine 0-2 /HPF (0-2); WBC Urine 0-5 /HPF (0-5)
[2024-03-29 07:08] LABS: Alanine Aminotransferase 31 U/L (0-40); Albumin Level 4.8 g/dL (3.5-5.0); Alkaline Phosphatase 111 U/L (39-117); Anion Gap 18 (12-20); Aspartate Amino Transferase 38 U/L (5-37); Bilirubin Direct 0.2 mg/dL (0.0-0.5); Bilirubin Total 0.5 mg/dL (0.0-1.0); Blood Urea Nitrogen 9 mg/dL (9-16); Calcium 9.9 mg/dL (8.4-10.2); Carbon Dioxide 24 mmol/L (22-29); Chloride 102 mmol/L (96-108); Creatinine Clr Calc Pharmacy 125.7; Estimated Glomerular Filt Rate > 60; Glucose Random 119 mg/dL (60-115); Lipase 58 U/L (8-78); Potassium 3.6 mmol/L (3.3-5.1); Sodium 140 mmol/L (135-145); Total Protein 8.5 g/dL (6.5-8.0)
--- NOTE | 2024-03-29 08:08 | ED_ITS ---
HPI - Nausea/Vomiting/Diarrhea General Chief complaint: Nausea/Vomiting/Diarrhea Stated complaint: vomiting Time Seen by Provider: 03/29/24 08:03 Source: patient and old records reviewed Mode of arrival: ambulatory Limitations: no limitations History of Present Illness ED Provider: LORE BEAULIEU Narrative: 53 yo male with PMH of daily heavy ETOH abuse and treated MAC by [facility], prior esophagitis, opiate abuse maintained on methadone was just seen on 03/[address] scan for similar complaint - enlarged liver and sent home with PPI and bentyl he returns today with c/o drinking 20 nips a day then past two days has been having nausea, vomiting and cannot keep anything down. He is worried about ETOH withdrawal though has never experienced it before. He has sore abdomen in epigastric area. No black stools or blood in vomit. MD elicited complaint: nausea, vomiting and abdominal pain Pertinent past history: alcohol abuse Onset (ago): day(s) (1.5) Description of vomiting: watery Associated nausea: Yes Associated abdominal pain: Yes Location of pain: epigastric Pain consistency: intermittent Severity: mild Quality: aching Exacerbating factors: vomiting Relieving factors: none Context: alcohol abuse Associated symptoms: loss of appetite, malaise, nausea/vomiting and weakness Related Data Home Medications ?Medication ?Instructions ?Recorded ?Confirmed methadone 10 mg/mL oral concentrate 30 mg PO DAILY 02/25/22 04/08/22 budesonide-formoterol HFA 160 2 puff inhalation BID PRN 08/20/22 mcg-4.5 mcg/actuation aerosol inhaler (Symbicort) ibuprofen 200 mg tablet 200 mg PO Q6H PRN 08/20/22 Previous Rx's ?Medication ?Instructions ?Recorded azithromycin 500 mg tablet 500 mg PO 3XW 90 days #39 tabs 11/24/22 ondansetron HCl 4 mg tablet 4 mg PO Q8H PRN nausea and 04/15/23 vomiting 30 days #10 tabs dicyclomine 20 mg tablet 20 mg PO BID PRN abdominal pain 03/14/24 #30 tabs omeprazole 40 mg capsule,delayed 40 mg PO DAILY 90 days #90 caps 03/16/24 release chlordiazepoxide HCl 25 mg capsule 50 mg (2 x 25 mg) PO Q4H PRN 03/29/24 alcohol withdrawal #15 caps ondansetron 4 mg disintegrating 4 mg PO Q8H PRN nausea and 03/29/24 tablet vomiting #20 tabs Allergies Allergy/AdvReac Type Severity Reaction Status Date / Time morphine [MORPHINE] Allergy Unknown NAUSEA & Verified 03/29/24 06:24 VOMITING, ABD PAIN Review of Systems 2 Review of Systems: Constitutional : No Weight loss, No Fever, No Chills ENT/Mouth : No sore throat, No Rhinorrhea Eyes: No Swelling, No Redness Cardiovascular : No Chest Pain, No SOB, NoEdema Respiratory : No Cough, No Sputum, No Wheezing Gastrointestinal : Positive Nausea, Positive Vomiting, no Diarrhea, positive abdominal Pain, No Hematochezia, No Melena Genitourinary : No Dysuria, No Urinary Frequency, No Hematuria, No Urgency Musculoskeletal : No joint pain, No Myalgias, No Joint Swelling Skin : No Skin Lesions, No rash Neuro : No Weakness, No Numbness, No Dizziness, No Headache All other systems reviewed and are negative. Gastrointestinal: Gastrointestinal: Reports nausea PMFSH Past Medical History Attestation statement: The following information was validated with the patient. Source: old records reviewed Medical History COVID-19 vaccination declined Ulcerative esophagitis Hx of drug dependence Pneumonia Gastritis Smoker Methadone dependence Surgical History Hx of endoscopic retrograde cholangiopancreatography Social History Social History Household Members: Other Household Members Other:: lives with friends Housing: House Do you presently have visiting nurse or other home services: No Alcohol intake: current Alcohol intake frequency: 3 or more drinks per day Alcohol type: hard liquor Patient Tobacco Use Status: Current everyday Tobacco user Tobacco use type: Cigarette Cigarette Packs Per Day: 1 Cigarettes Per Day: 6 Years Smoked: 32 Smoked in Last 30 Days: Yes e-Cigarette/Vaping Use: Never Used Second Hand Smoke Exposure: No Substance Use Type: Crack/Cocaine and Heroin Substance Use Frequency: Monthly Last Used Substance: Weeks (ago) Any prior treatment program specific to substance use: No Advance Directives: No service: No Current occupational status: unemployed Physical Exam 2 Vital Signs: Vital Signs: Last Vital Signs Temp 97.1 F 03/29/24 10:26 Pulse 66 03/29/24 10:26 Resp 16 03/29/24 10:26 BP 152/98 H 03/29/24 10:26 Pulse Ox 95 03/29/24 10:26 O2 Del Method Room Air 03/29/24 10:26 BMI result Body Mass Index 29.8 Appearance: Alert. Oriented X3. No acute distress. Eyes: Pupils equal, round and reactive to light. ENT: Pharynx normal. Neck: Normal inspection. Neck supple. CVS: Normal heart rate and rhythm. Pulses normal. Respiratory: No respiratory distress. Breath sounds normal. Abdomen: Soft and mild RUQ ttp no rebound Skin: Skin warm and dry. Normal skin color. Normal skin turgor. Extremities: No lower extremity edema. Neuro: Oriented X 3. No motor deficit. No sensory deficit. no tremors Medications Administered Discontinued Medications Generic Name Dose Route Start Last Admin Trade Name Freq PRN Reason Stop Dose Admin Diazepam 5 mg 03/29/24 08:03 03/29/24 08:23 Diazepam 10 Mg/2 Ml Cartridge IVPUSH 03/29/24 08:04 5 mg STAT STA Administration Sodium Chloride 1,000 mls @ 999 mls/hr 03/29/24 08:03 03/29/24 09:21 Ns IV 03/29/24 09:03 Infused .Q1H1M ONE Infusion Ondansetron HCl 4 mg 03/29/24 08:03 03/29/24 08:24 Ondansetron Hcl 4 Mg/2 Ml Vial IVPUSH 03/29/24 08:04 4 mg ONCE ONE Administration Pantoprazole Sodium 40 mg 03/29/24 08:03 03/29/24 08:24 Pantoprazole Sodium 40 Mg/10 Ml Vial IVPUSH 03/29/24 08:04 40 mg ONCE ONE Administration Medical Decision Making Medical Decision Making MDM Narrative: 53 yo male with PMH of daily heavy ETOH abuse and treated MAC by [facility] , ETOH use, prior drug abuse on methadone now here with c/o recent heavy drinking now vomiting at this time suspect ETOH gastritis he has no withdrawal on exam but has mild tachycardia will obtain labs, hydrate, zofran, valium and start on PPI. Will monitor response to valium to see if he requires phenobarb but has never gone through withdrawal before. US ordered to evaluate gallbladder but just had CT scan for similar complaints. Differential Diagnosis Differential Diagnoses: The differential diagnosis associated with the presentation includes pancreatitis, biliary colic, ETOH gastritis, ETOH abuse Admission/Observation Consideration of admission/observation: Escalation of care including admission/observation considered US no acute surgical needs can follow up with surgery able to tolerate PO no signs of acute withdrawal stable for DC Consult Healthcare Provider Management of the patient was discussed with: Visual Design Lead Lab Data MDM Lab Attestation statement: I reviewed the patient's lab results. 03/29/24 06:45 03/29/24 06:45 Labs: Lab Results 03/29/24 03/29/24 Range/Units 06:45 06:47 WBC 7.9 (4.8-10.8) X10*3/uL RBC 4.92 (4.60-5.80) X10*6/uL Hgb 16.4 (14.0-18.0) g/dl Hct 44.9 (42.0-52.0) % MCV 91.3 (80.0-98.0) fL MCH 33.3 H (27.0-33.0) pg MCHC 36.5 H (31.0-36.0) g/dl RDW 13.1 (11.0-16.0) % Plt Count 349 (160-400) X10*3/uL MPV 8.6 L (9.4-12.4) fL Immature Gran % (Auto) 0.5 H (0.0-0.4) % Neut % (Auto) 71.5 (45-73) % Lymph % (Auto) 16.6 L (20-40) % [place] % (Auto) 9.7 (2-11) % Eos % (Auto) 0.6 (0-4) % Baso % (Auto) 1.1 (0-2) % Lymph # (Auto) 1.3 (1.2-4.9) X10*3/uL [place] # (Auto) 0.8 (0.1-1.2) X10*3/uL Eos # (Auto) 0.1 (0.0-0.4) X10*3/uL Baso # (Auto) 0.1 (0.0-0.2) X10*3/uL Abs Immat Gran (auto) 0.04 H (0.00-0.03) X10*3/uL Absolute Neuts (auto) 5.6 (2.0-8.3) x10*3/uL Absolute Nucleated RBC 0.000 (0.0-0.012) X10*3/uL Nucleated RBC % (auto) 0.0 (0.0-0.2) /100WBC Sodium 140 (135-145) mmol/L Potassium 3.6 (3.3-5.1) mmol/L Chloride 102 (96-108) mmol/L Carbon Dioxide 24 (22-29) mmol/L Anion Gap 18 (12-20) BUN 9 (9-16) mg/dL Creatinine 0.85 (0.5-1.4) mg/dL Estim Creat Clear Calc 125.7 Estimated GFR > 60 Random Glucose 119 H (60-115) mg/dL Calcium 9.9 (8.4-10.2) mg/dL Magnesium 1.9 (1.6-2.6) mg/dL Total Bilirubin 0.5 (0.0-1.0) mg/dL Direct Bilirubin 0.2 (0.0-0.5) mg/dL AST 38 H (5-37) U/L ALT 31 (0-40) U/L Alkaline Phosphatase 111 (39-117) U/L Total Protein 8.5 H (6.5-8.0) g/dL Albumin 4.8 (3.5-5.0) g/dL Lipase 58 (8-78) U/L Urine Color Dark Yellow Urine Appearance Clear Urine pH 6.0 (5.0-9.0) Ur Specific [place] 1.020 (1.005-1.025) Urine Protein 30 (1+) H (Neg-Trace) mg/dL Urine Glucose (UA) Negative (Negative) mg/dL Urine Ketones Trace (Negative) mg/dL Urine Blood Negative (Negative) Urine Nitrite Negative (Negative) Ur Leukocyte Esterase Negative (Negative) Urine RBC 0-2 (0-2) /HPF Urine WBC 0-5 (0-5) /HPF Ur Squamous Epith Cells 0-2 (0-2) /HPF Urine Bacteria None Seen (None Seen) Hyaline Casts 0-2 (0-2) /LPF Ethyl Alcohol < 10 mg/dL Independent Interpretation I performed an independent interpretation of an: Ultrasound Radiology Impression Discussion of test interpretation with radiology: I have reviewed the radiologist's reading. External Record Review External record reviewed: Inpatient record Prescription Management I considered prescription management with: Other Critical Care Time Critical Care Time Critical Care Time: Yes Total Critical Care Time: 45 Attestation: much better with IVF and IV valium with improvement in symptoms I attest to this time spent taking care of the patient Discharge Plan Discharge Clinical Impression: Nausea & vomiting Qualifiers: Vomiting type: unspecified Qualified Code(s): R11.2 - Nausea with vomiting, unspecified Alcoholic gastritis Qualifiers: Chronicity: acute Gastritis bleeding: without bleeding Qualified Code(s): K 29.20 - Alcoholic gastritis without bleeding Patient Disposition: Home, Self-Care Instructions: Gastritis (ED), Abuse of Alcohol (ED), Acute Nausea and Vomiting (ED) Additional Instructions: you can follow up with our comprehensive care clinic call [phone] for help with ETOH abstinence. your labs are reassuring. you need to cut down your drinking slowly return for worsening vomiting, confusion, hallucinations or any other concerns you do have a growth in the gallbladder that is not emergent but needs to be followed by surgery call surgeon listed below to follow up. Prescriptions: New ondansetron 4 mg tablet,disintegrating 4 mg PO Q8H PRN (Reason: nausea and vomiting) Qty: 20 0RF chlordiazepoxide HCl 25 mg capsule 50 mg PO Q4H PRN (Reason: alcohol withdrawal) Qty: 15 0RF Rx Instructions: until symptoms controlled No Action methadone 10 mg/mL Concentrate 30 mg PO DAILY dicyclomine 20 mg tablet 20 mg PO BID PRN (Reason: abdominal pain) Qty: 30 1RF omeprazole 40 mg capsule,delayed release(DR/EC) 40 mg PO DAILY 90 Days Qty: 90 0RF budesonide-formoterol [Symbicort] 160-4.5 mcg/actuation HFA aerosol inhaler 2 puff inhalation BID PRN ibuprofen 200 mg tablet 200 mg PO Q6H PRN azithromycin 500 mg tablet 500 mg PO 3XW 90 Days Qty: 39 11RF ondansetron HCl 4 mg tablet 4 mg PO Q8H PRN (Reason: nausea and vomiting) 30 Days Qty: 10 2RF Referrals: Isaiah Haro MD [Physician] - Print Language: Croatian
[2024-03-29] MEDS: 0.9 % Sodium Chloride 1,000 ML 999 ML IV (08:17)
[2024-03-29] MEDS: diazePAM 10 MG/2 ML CARTRIDGE 5 MG IVPUSH (08:23)
[2024-03-29] MEDS: ondansetron HCL 4 MG/2 ML VIAL IVPUSH (08:24)
[2024-03-29] MEDS: Pantoprazole Sodium 40 MG/10 ML VIAL IVPUSH (08:24)
[2024-03-29 08:30] VITALS: BP 159/99; PULSE 79; RESP 20; TEMP 36.6; O2SAT 96
[2024-03-29 08:33] LABS: Magnesium 1.9 mg/dL (1.6-2.6)
[2024-03-29 09:12] LABS: Ethanol < 10 mg/dL
[2024-03-29 10:26] VITALS: BP 152/98; PULSE 66; RESP 16; TEMP 36.2; O2SAT 95
[2024-03-29 12:12] VITALS: BP 175/109; PULSE 72; RESP 16; TEMP 36.2; O2SAT 96
== END 2024-03-29 12:30 | disposition home or self-care (01) ==
PROVIDERS: Emergency Provider Emergency Medicine; PCP Internal Medicine
DX: K29.20 Alcoholic gastritis without bleeding (principal); R11.2 Nausea with vomiting, unspecified; R10.13 Epigastric pain; F10.10 Alcohol abuse, uncomplicated; Y90.0 Blood alcohol level of less than 20 mg/100 ml; F11.20 Opioid dependence, uncomplicated; F17.210 Nicotine dependence, cigarettes, uncomplicated
CPT/HCPCS: 36415; 76705; 80048; 80076; 80307; 81001; 83690; 83735; 85025; 93005; 96361; 96374; 96375; 99284; 99285; C9113; J2405; J3360

== ENCOUNTER → 2024-03-29 06:30 | Outpatient (BNV) | payer MEDICAID, SELFPAY | PROVIDERS: PCP Internal Medicine; Visit Provider Internal Medicine Cardiovascular Disease | DX: R07.9 Chest pain, unspecified (principal) | CPT/HCPCS: 93010 ==

== ENCOUNTER 2024-04-12 22:09 | Emergency (ER) | payer MEDICAID, SELFPAY ==
[2024-04-12 22:24] VITALS: BMI 33.6
--- NOTE | 2024-04-12 22:24 | ED_ITS ---
HPI - CPR General Chief Complaint: Cardiac Arrest/CPR Stated Complaint: cardiac arrest Time Seen by Provider: 04/12/24 22:16 Source: EMS Mode of arrival: EMS History of Present Illness ED Provider: philippe BEAULIEU narrative: Patient with history of IV drug abuse in the past on methadone was found outside the house in backyard unresponsive no severe started by the family for 5 days started the CPR at scene patient was cyanosed with vomitus around CPR immediately started initial rhythm was asystole patient received 4 doses of epinephrine without any response also received 1 ampule of bicarb and Narcan, LMA was applied with good air entry in lungs body was warm CPR continued about 25 minutes prior to arrival Related Data Home Medications ?Medication ?Instructions ?Recorded ?Confirmed methadone 10 mg/mL oral concentrate 30 mg PO DAILY 02/25/22 04/08/22 budesonide-formoterol HFA 160 2 puff inhalation BID PRN 08/20/22 mcg-4.5 mcg/actuation aerosol inhaler (Symbicort) ibuprofen 200 mg tablet 200 mg PO Q6H PRN 08/20/22 Previous Rx's ?Medication ?Instructions ?Recorded azithromycin 500 mg tablet 500 mg PO 3XW 90 days #39 tabs 11/24/22 ondansetron HCl 4 mg tablet 4 mg PO Q8H PRN nausea and 04/15/23 vomiting 30 days #10 tabs dicyclomine 20 mg tablet 20 mg PO BID PRN abdominal pain 03/14/24 #30 tabs omeprazole 40 mg capsule,delayed 40 mg PO DAILY 90 days #90 caps 03/16/24 release chlordiazepoxide HCl 25 mg capsule 50 mg (2 x 25 mg) PO Q4H PRN 03/29/24 alcohol withdrawal #15 caps ondansetron 4 mg disintegrating 4 mg PO Q8H PRN nausea and 03/29/24 tablet vomiting #20 tabs Allergies Allergy/AdvReac Type Severity Reaction Status Date / Time morphine [MORPHINE] Allergy Unknown NAUSEA & Unverified 04/12/24 22:29 VOMITING, ABD PAIN Review of Systems Review of Systems: Yes Unobtainable due to mental condition PMFSH Past Medical History Medical History COVID-19 vaccination declined Ulcerative esophagitis Hx of drug dependence Pneumonia Gastritis Smoker Methadone dependence Surgical History Hx of endoscopic retrograde cholangiopancreatography Social History Social History Household Members: Other Household Members Other:: lives with friends Housing: House Do you presently have visiting nurse or other home services: No Alcohol intake: current Alcohol intake frequency: 3 or more drinks per day Alcohol type: hard liquor Patient Tobacco Use Status: Current everyday Tobacco user Tobacco use type: Cigarette Cigarette Packs Per Day: 1 Cigarettes Per Day: 6 Years Smoked: 32 e-Cigarette/Vaping Use: Never Used Second Hand Smoke Exposure: No Substance Use Type: Crack/Cocaine and Heroin Advance Directives: No Advance Directives Information Provided: No service: No Current occupational status: unemployed Physical Exam Vital Signs: Vital Signs: BMI result Body Mass Index 33.6 Appearance: LMA in place Eyes: Fixed dilated, atraumatic normocephalic Neck: Normal inspection. Neck supple. CVS: No spontaneous cardiac activity Respiratory: Equal air entry bilateral with ambu Abdomen: Soft Skin: Dusky cold no fresh IVDA lucas Extremities: IO in right tibia Medical Decision Making Medical Decision Making MDM Narrative: Patient's history of substance abuse was found down for unknown time remained asystole during CPR for about 25 minutes prior to arrival better echo showed no cardiac activity initial POC was 23 from the finger stick recheck from the ear lobe was 358 likely an error secondary to poor circulation severe continued and 2 ampules of epinephrine was given without much response quality control supervisor showed cardiac asystole Cardiac echo showed no cardiac activity patient was pronounced at 22:18 Patient is accepted by medical claims manager TEODORO KENNEY case [id number] Discharge Plan Discharge Clinical Impression: Cardiac arrest Patient Disposition: Date/Time: 04/12/24 22:18
--- NOTE | 2024-04-12 22:29 | PC.NURSE ---
Addendum entered by Diane Sears 04/12/24 23:01: [facility] Kassy accepting rep case # [id number] Addendum entered by Diane Sears 04/12/24 22:57: [facility] called at [phone], rep Estephania Clifford case # [id number], per rep pt is eligible for tissue donation. at this time pt can be transported [place] [facility] [place]. [facility] accepted per MD. Addendum entered by Diane Sears 04/12/24 22:34: family on the way per EMS, have not arrived to ED at this time. Original Note: per ems pt was found outside of home by family unresponsive, cpr started on [place] FD arrival approx 2144, lkw approx 2-3 hours ago. pt has hx of opioid use, 4mg Narcan given via ems without response. 4mg epi, 1 amp bicarb given via ems. airway established with IGel size 4, IO to R. fibula. PARISH for compressions. on arrival pt is on PARISH, 2212 poc 23 D50 given via IO. 1L NS hung on pressure bag. 2213 CPR continues, 1mg Epi given. 2213 pulse check per MD, no pulse/asystole on monitor. 2216 1mg EPI given, pulses check per MD, no pulse/asystole on monitor. 2217 CPR continues, poc recheck 358. 2218 pulse check per MD, no pulses/asystole on monitor. MD at bedside with ultrasound no cardiac activity noted. [address] Fonseca.
--- NOTE | 2024-04-12 22:57 | MHC.EDTECH ---
Contacted medical services coordinator @[phone] per proiders request. Gave patient demographics then took call. [facility] accepted the case at this time
--- NOTE | 2024-04-13 00:05 | PC.NURSE ---
attempted to contact brennen guillaume at [phone] no answer, no voice mail set up.
--- NOTE | 2024-04-13 00:30 | PC.NURSE ---
no family presented to ED. unable to reach only contact on file Yung Luna, no voicemail available to leave message. pt transport to [facility] [place] at this time.
[2024-04-13 06:15] LABS: Glucose, Whole Blood 358 mg/dL (60-115)
[2024-04-13 06:17] LABS: Glucose, Whole Blood 12 mg/dL (60-115)
[2024-04-13 06:22] LABS: Glucose, Whole Blood 21 mg/dL (60-115)
[2024-04-13 06:24] LABS: Glucose, Whole Blood 23 mg/dL (60-115)
== END 2024-04-13 00:55 | disposition expired ==
PROVIDERS: Emergency Provider Internal Medicine
DX: I46.9 Cardiac arrest, cause unspecified (principal); F17.210 Nicotine dependence, cigarettes, uncomplicated; Z79.899 Other long term (current) drug therapy
CPT/HCPCS: 36415; 82947; 96374; 99283; 99285; J0171